=== PATIENT | female | born 1990 | race Caucasian/White ===

== ENCOUNTER 2021-01-31 10:59 | Outpatient (CLI) | payer OTHER, SELFPAY ==
--- NOTE | 2021-02-02 14:39 | WPDHOLTEREM ---
Holter/Event Monitor Holter/Event Monitor Date of procedure: 02/02/21 Holter/Event Procedure: 24 Hr Holter Monitor Diagnosis: Palpitations Indications: Palpitations Image/Tracing Quality: Acceptable Finding: Underlying rhythm is sinus with an average heart rate is 62 beats minute minimum 0 43 beats per minute occurring at 4:56 a.m. and maximum 124 beats per minute occurring at 10:48 p.m.. No atrial fibrillation or flutter is observed. Toprol causes are negative. No ventricular ectopy was noted. No supraventricular tachycardia or nonsustained ventricular tachycardia or ventricular tachycardia. Rare supraventricular ectopy totaling 12 isolated premature atrial contractions noted. RI interval and QRS duration within normal limits. There was no symptom diary returned conjunction with this study. Conclusion: Overall, unremarkable Holter monitor with underlying sinus rhythm and rare isolated premature atrial contractions. No symptom diary returned in conjunction with the study. No SVT, AFib/flutter, prolonged pauses or high-grade AV blocks.
== END 2021-01-31 11:00 | disposition home or self-care (01) ==
PROVIDERS: PCP Family Medicine; Visit Provider Family Medicine
DX: R00.2 Palpitations (principal)
CPT/HCPCS: 93225; 93226

== ENCOUNTER 2021-03-10 18:12 | Emergency (ER) | payer OTHER, SELFPAY ==
--- NOTE | ~2021-03-10 | CT_ITS ---
EXAMINATION: CT abdomen pelvis wo con DATE: 03/10/2021 20:22 INDICATION: Right flank pain, TECHNIQUE: Computed tomography (CT) of the abdomen and pelvis was performed without intravenous contr ast. The dose-length product was 278.88 mGy-cm. Automated exposure control and iterative reconstructi on technique were employed. COMPARISON: CT dated 01/27/2018. FINDINGS: Lung bases are unremarkable. Heart size normal. No significant pleural or pericardial effus ion. Status post cholecystectomy. The liver, spleen, pancreas, adrenal glands and kidneys are unremar kable. Nonobstructive bowel gas pattern. Bladder is decompressed. Uterus appears mildly enlarged. No rmal appendix. No renal/ureteral stones or hydronephrosis. No significant vascular abnormality. No lymphadenopathy. No evidence for hernia. IMPRESSION: 1. No acute abdominal abnormality. Reviewed, dictated and finalized at location A.
[2021-03-10 18:42] VITALS: BP 140/71; PULSE 73; RESP 16; TEMP 36.2; O2SAT 99
[2021-03-10 19:18] LABS: Hematocrit 39.4 % (37.0-47.0); Hemoglobin 13.7 g/dL (12.0-15.0); Mean Corpuscular HGB Conc 34.8 g/dl (32-36); Mean Corpuscular Hemoglobin 31.4 pg (26-34); Mean Corpuscular Volume 90.2 fl (80-100); Mean Platelet Volume 10.8 fl (7.4-10.4); Platelet Count Result 322 k/mm3 (150-375); Red Blood Count 4.37 M/mm3 (4.2-5.4); Red Cell Distribution Width 12.5 % (11.5-14.5); White Blood Count 25.2 K/mm3 (4.5-10.0)
[2021-03-10 19:29] LABS: Alanine Aminotransferase 17 U/L (4-35); Albumin Level 4.4 g/dL (3.5-5.1); Alkaline Phosphatase 62 U/L (38-126); Anion Gap 8 mmol/L (8-16); Aspartate Amino Transferase 23 U/L (14-36); Bilirubin,Total 0.7 mg/dL (0.2-1.3); Blood Urea Nitrogen 7 mg/dL (7-17); Calcium 9.4 mg/dL (8.4-10.2); Carbon Dioxide 26 mmol/L (22-30); Chloride 103 mmol/L (98-107); Estimated CRCL calculation 79 ml/min; Estimated Glomerular Filt Rate > 60; Glucose 88 mg/dL (65-110); Lipase 37 U/L (23-300); Potassium 4.5 mmol/L (3.4-5.0); Sodium 137 mmol/L (137-145)
[2021-03-10 19:45] LABS: Band Neutrophils Percent 2 % (0-6); Eosinophils Absolute Manual 0.25 K/mm3 (0.02-0.5); Eosinophils Percent Manual 1 % (0-4); Lymphocytes Absolute Manual 13.35 K/mm3 (1.1-4.5); Monocytes Percent Manual 2 % (3-9); Neutrophils Absolute Manual 11.08 K/mm3 (1.7-7.2); Neutrophils Percent Manual 42 % (46-73); Total Cells Counted 100
[2021-03-10 19:46] LABS: Platelet Estimate Adequate (Adequate)
[2021-03-10 19:47] LABS: Smudge Cells PRESENT
[2021-03-10 19:59] LABS: Add Urine Microscopic? YES; Appearance Urine Cloudy (Clear); Bilirubin Urine Negative (Negative); Blood Urine Negative (Negative); Color Urine Yellow (Yellow); Glucose Urine UA Negative (Negative); Ketones Urine Trace mg/dL (Negative); Leukocyte Esterase Ur Negative LEU/UL (Negative); Mucus Urine Rare /lpf; Nitrate Urine Negative (Negative); Protein Urine Negative (Negative); Specific Grav Ur 1.028 (1.001-1.035); Squamous Epithelial Cell Urine Moderate /hpf (Few); WBC Urine 0-3 /hpf
[2021-03-10] MEDS: KETOROLAC (*BKC) 60 MG/2 ML VIAL IM (20:44)
--- NOTE | 2021-03-10 21:27 | ED.BACK ---
HPI - Back Pain/Injury General Chief Complaint: Back Pain/Injury Stated Complaint: flank pain Time Seen by Provider: 03/10/21 19:56 History of Present Illness HPI Narrative: Patient is a 30-year-old female who presents ER with right-sided flank pain. Ongoing for 4 days. Worse with twisting and bending. No known trauma. No urinary frequency urgency or dysuria. No fevers or chills or sweats. Denies abdominal pain/nausea/vomiting. No alleviating factors. Patient reports history of CLL, white blood cell count has been as high as 80,000 but her new baseline is 20,000. Related Data Home Medications Medication Instructions Recorded Confirmed methylphenidate HCl 03/10/21 venlafaxine mg PO 03/10/21 venlafaxine mg PO 03/10/21 Allergies Allergy/AdvReac Type Severity Reaction Status Date / Time adhesive Allergy Unknown Hives Verified 03/10/21 19:58 Review of Systems Review of Systems: All systems reviewed & are unremarkable except as noted in HPI and below Constitutional: Constitutional: Denies chills, Denies fever(s) and Denies weakness ENT: Denies nasal congestion and Denies sore throat Cardiovascular: Cardiovascular: Denies chest pain and Denies radiating jaw, neck or arm pain Respiratory: Respiratory: Denies cough and Denies dyspnea Gastrointestinal: Gastrointestinal: Denies abdominal pain, Denies diarrhea, Denies nausea and Denies vomiting Genitourinary: Genitourinary: Denies abnormal vaginal bleeding, Denies hematuria, Denies nocturia, Denies dysuria and Reports flank pain Musculoskeletal: Musculoskeletal: Reports back pain and Denies muscle cramps Neurologic: Denies focal weakness and Denies numbness [facility] Past Medical History Medical History (Updated 03/10/21 @ 21:54 by Franklin Jc MD) CLL (chronic lymphocytic leukemia) Surgical History Surgical History (Updated 03/10/21 @ 21:55 by Franklin Jc MD) History of cholecystectomy Family History Family History (Updated 12/10/15 @ 23:19 by DOCTOR UNKNOWN) Father Family history of diabetes mellitus in first degree relative Mother Family history of diabetes mellitus in first degree relative Other Family history of malignant neoplasm Hypertension Social History Social History Smoking status: Heavy tobacco smoker Alcohol intake: current Exam Narrative: GENERAL: Well-appearing, well-nourished, and in no acute distress. HEAD: Normocephalic, atraumatic. CHEST: Clear to auscultation. No respiratory distress. HEART: Regular rate and rhythm. Normal peripheral pulses. ABDOMEN: Soft, nontender, nondistended. Right CVA tenderness. EXTREMITIES: Normal range of motion. No edema. SKIN: Warm, dry, no rash. NEURO: NAlert and oriented x3. PSYCH: Normal mood and affect. Course Course Emergency Course: Patient informed results. Toradol given for pain. No UTI/stone. Will treat outpatient for muscle strain. Reproducible with palpation and mechanical in nature. Vital Signs Vital signs: Vital Signs Temperature 97.2 F L 03/10/21 18:42 Pulse Rate 73 03/10/21 18:42 Respiratory Rate 16 03/10/21 18:42 Blood Pressure 140/71 03/10/21 18:42 Pulse Oximetry 99 03/10/21 18:42 Temperature 97.2 F L 03/10/21 18:42 Pulse Rate 73 03/10/21 18:42 Respiratory Rate 16 03/10/21 18:42 Blood Pressure 140/71 03/10/21 18:42 Pulse Oximetry 99 03/10/21 18:42 MDM - Back Pain/Injury Lab Data Result diagrams: 03/10/21 19:09 03/10/21 19:09 Labs: Lab Results 03/10/21 03/10/21 03/10/21 Range/Units 19:09 19:09 19:09 WBC 25.2 H (4.5-10.0) K/mm3 RBC 4.37 (4.2-5.4) M/mm3 Hgb 13.7 (12.0-15.0) g/dL Hct 39.4 (37.0-47.0) % MCV 90.2 (80-100) fl MCH 31.4 (26-34) pg MCHC 34.8 (32-36) g/dl RDW 12.5 (11.5-14.5) % Plt Count 322 (150-375) k/mm3 MPV 10.8 H (7.4-10.4) fl Immature Gran % (Auto) Not Reportable Neut % (Auto) Not Reportable
== END 2021-03-10 21:51 | disposition home or self-care (01) ==
PROVIDERS: Emergency Medicine; Emergency Provider Emergency Medicine; PCP Family Medicine
DX: S39.012A Strain of muscle, fascia and tendon of lower back, initial encounter (principal); C91.10 Chronic lymphocytic leukemia of B-cell type not having achieved remission; F17.200 Nicotine dependence, unspecified, uncomplicated; X58.XXXA Exposure to other specified factors, initial encounter
CPT/HCPCS: 36415; 74176; 80053; 81001; 81025; 83690; 85025; 96372; 99284; J1885

== ENCOUNTER 2024-06-09 14:13 | Emergency (ER) | payer OTHER, SELFPAY ==
--- NOTE | ~2024-06-09 | CT_ITS ---
EXAMINATION: CT abdomen pelvis w con DATE: 06/09/2024 18:46 INDICATION: Right flank pain. Abdominal pain. TECHNIQUE: Computed tomography (CT) of the abdomen and pelvis was performed with 100 mL Omnipaque 350 intravenous contrast. Automated exposure control and iterative reconstruction technique were employe d. The dose-length product was 334.77 mGy-cm. COMPARISON: CT abdomen and pelvis 03/10/2021 FINDINGS: The visualized portions of the lung bases demonstrate mild atelectasis. No pleural effusion . The heart size is normal. No pericardial effusion. The liver is normal. There are changes of cholec ystectomy. The spleen, pancreas, adrenal glands, and kidneys are normal. There are no dilated loops o f bowel. The appendix is normal. There are no pathologically enlarged lymph nodes. There is a 2.2 cm corpus luteum cyst in right ovary. There is a physiologic fluid in the pelvis. There are no pathologi quinten enlarged lymph nodes. There is mild lumbar spondylosis. IMPRESSION: 1. No specific etiology for the patient's symptoms. Reviewed, dictated and finalized at location A. AL TRAPPER
--- NOTE | ~2024-06-09 | XR_ITS ---
EXAMINATION: XR chest 2V DATE: 06/09/2024 15:02 INDICATION: Lower chest pain and upper abdominal pain TECHNIQUE: PA and lateral views of the chest were obtained. COMPARISON: CT dated 06/27/2017 FINDINGS: The lungs are clear with no focal airspace opacities, pulmonary edema, pleural effusion or pneumothor ax. The cardiomediastinal silhouette is normal. Cholecystectomy clips in right upper quadrant. IMPRESSION: 1. No acute cardiopulmonary disease. Reviewed, dictated and finalized at location B. S ORDER PROCESSOR
[2024-06-09 14:26] VITALS: BP 126/77; PULSE 65; RESP 20; TEMP 36.5; O2SAT 100
--- NOTE | 2024-06-09 14:34 | ED_ITS ---
HPI - Back Pain/Injury General Chief Complaint: Back Pain/Injury <Shirlene Bustamante APRN - Last Filed: 06/09/24 14:36> Stated Complaint: R FLANK PAIN X2WKS <Shirlene Bustamante APRN - Last Filed: 06/09/24 14:36> Time Seen by Provider: 06/09/24 14:25 <Shirlene Bustamante APRN - Last Filed: 06/09/24 14:36> Focused HPI: Patient is a 34 year female who presents to the ER with right flank pain for the past 2 days. She denies any urinary symptoms or visible blood in her urine. Patient also endorses upper abdominal pain and increased GERD lately. She has a history of CLL in reports she has noticed swollen lymph nodes on her posterior neck, but denies any sore throat, headache, neck stiffness. Patient reports her lymph nodes tend to swell when ?there is something going on with my body. She denies any recent fevers, chest pain, shortness of breath. Patient denies any other medical history related to this ER visit. GENERAL: Well-appearing, well-nourished, and in no acute distress. HEAD: Normocephalic, atraumatic. CHEST: Clear to auscultation. ?No respiratory distress. HEART: Regular rate and rhythm.? NEURO: ?Alert and oriented x3. Patient screened in triage and initial orders placed.? ?Additional care and disposition to be based upon?diagnostic testing and treatment. <Shirlene Bustamante APRN - Last Filed: 06/09/24 14:36> History of Present Illness HPI Narrative: Agree with the HPI as described above <Sergey Lipscomb MD - Last Filed: 06/09/24 20:33> Related Data Home Medications: Home Medications ?Medication ?Instructions ?Recorded ?Confirmed ?Last Taken ?Type methylphenidate HCl 5 mg tablet 03/10/21 Unknown History venlafaxine 150 mg mg PO 03/10/21 Unknown History capsule,extended release 24 hr venlafaxine 75 mg capsule,extended mg PO 03/10/21 Unknown History release 24 hr <Shirlene Bustamante APRN - Last Filed: 06/09/24 14:36> Allergies/Adverse Reactions: Allergies Allergy/AdvReac Type Severity Reaction Status Date / Time adhesive Allergy Unknown Hives Verified 06/09/24 14:29 <Shirlene Bustamante APRN - Last Filed: 06/09/24 14:36> Review of Systems 2 Review of Systems: As reviewed above in HPI <Sergey Lipscomb MD - Last Filed: 06/09/24 20:33> PMFSH Past Medical History Medical History: Medical History CLL (chronic lymphocytic leukemia) <Shirlene Bustamante APRN - Last Filed: 06/09/24 14:36> Surgical History Surgical History: Surgical History History of cholecystectomy <Shirlene Bustamante APRN - Last Filed: 06/09/24 14:36> Family History Family History: Family History Father Family history of diabetes mellitus in first degree relative Mother Family history of diabetes mellitus in first degree relative Other Family history of malignant neoplasm Hypertension <Shirlene Bustamante APRN - Last Filed: 06/09/24 14:36> Social History Social History: Social History Smoking status: Heavy tobacco smoker Alcohol intake: current <Shirlene Bustamante APRN - Last Filed: 06/09/24 14:36> Exam 2 Narrative: GENERAL: [Well-appearing, well-nourished, and in no acute distress.] HEAD: [Normocephalic, atraumatic.] EYES: [PERRLA and EOMI.] ENT: Nares clear, no rhinorrhea or epistaxis. Mucous membranes moist. NECK: Supple. CHEST: [Clear to auscultation. No respiratory distress.] HEART: [Regular rate and rhythm]. No murmur heard. [Normal peripheral pulses.] ABDOMEN: [Soft, nondistended], mild right-sided CVA tenderness, [No rigidity or guarding] EXTREMITIES: Normal range of motion. [No edema.] SKIN: Warm, dry, no rash. NEURO: [No focal deficits]. Alert and oriented [x3.] PSYCH: [Normal mood and affect.] <Sergey Lipscomb MD - Last Filed: 06/09/24 20:33> Course Vital Signs Vital signs: Vital Signs Temperature 36.5 C 06/09/24 14:26 Pulse Rate 65 06/09/24 14:26 Respiratory Rate 20 06/09/24 14:26 Blood Pressure 126/77 06/09/24 14:26 Pulse Oximetry 100 06/09/24 14:26 Oxygen Delivery Room Air 06/09/24 14:26 Temperature 36.5 C 06/09/24 14:26 Pulse Rate 65 06/09/24 17:33 Respiratory Rate 20 06/09/24 17:33 Blood Pressure 101/64 06/09/24 17:33 Pulse Oximetry 100 06/09/24 17:33 Oxygen Delivery Room Air 06/09/24 14:26 <Shirlene Bustamante APRN - Last Filed: 06/09/24 14:36> Vital Signs Temperature 36.5 C 06/09/24 14:26 Pulse Rate 65 06/09/24 14:26 Respiratory Rate 20 06/09/24 14:26 Blood Pressure 126/77 06/09/24 14:26 Pulse Oximetry 100 06/09/24 14:26 Oxygen Delivery Room Air 06/09/24 14:26 Temperature 36.5 C 06/09/24 14:26 Pulse Rate 65 06/09/24 17:33 Respiratory Rate 20 06/09/24 17:33 Blood Pressure 101/64 06/09/24 17:33 Pulse Oximetry 100 06/09/24 17:33 Oxygen Delivery Room Air 06/09/24 14:26 <Sergey Lipscomb MD - Last Filed: 06/09/24 20:33> MDM - Back Pain/Injury MDM Narrative Medical decision making narrative: 34-year-old female with a history of CLL currently in remission presenting to the emergency department chief complaint of right flank pain for last 2 weeks. Intermittent in nature. Feels dull and aching in sensation. Denies any urinary tract infection symptoms. Last menstrual period 1 week prior. Denies any chance of . No radiation of her symptoms, no radiculopathy symptoms, no weakness or footdrop. Ambulating unassisted. Denies any fever, chills, shortness of breath. She was otherwise in her normal state of health. Patient otherwise is very well-appearing, not any acute distress, normal vital signs, reassuring examination. Given her age and risk factors blood work, urinalysis and CT scan were obtained. She was treated with Toradol and fluids. Workup shows chronically elevated leukocytosis of 39.6 in line with her normal CLL, no other acute findings or concerns and CBC. Coag studies within normal limits, normal renal and electrolyte panel, normal liver function panel. Normal glucose. Urinalysis shows no signs of urinary tract infection and negative test. Chest x-ray shows no acute cardiopulmonary process. CT scan shows no acute intra-abdominal or pelvic process. Patient was re-evaluated and felt some improvement. We will send her home with a combination of Toradol and Robaxin for muscle strain pain and instructions for close follow-up and return precautions. Patient verbalized understanding was safe for discharge home at this time. <Sergey Lipscomb MD - Last Filed: 06/09/24 20:33> Differential Diagnosis Differential diagnosis: Likely lumbar radiculopathy, sciatica, strain of lumbar region, renal colic, pyelonephritis and other <Sergey Lipscomb MD - Last Filed: 06/09/24 20:33> Medical Records Attestation: I reviewed the patient's medical records. <Sergey Lipscomb MD - Last Filed: 06/09/24 20:33> Lab Data Attestation: I reviewed the patient's lab results. <Sergey Lipscomb MD - Last Filed: 06/09/24 20:33> Result diagrams: 06/09/24 15:37 06/09/24 15:37 <Shirlene Bustamante APRN - Last Filed: 06/09/24 14:36> Labs: Lab Results 06/09/24 06/09/24 06/09/24 Range/Units 15:37 17:42 19:57 WBC 39.6 H (4.5-10.0) K/mm3 RBC 4.27 (4.2-5.4) M/mm3 Hgb 13.6 (12.0-15.0) g/dL Hct 40.7 (37.0-47.0) % MCV 95.3 (80-100) fl MCH 31.9 (26-34) pg MCHC 33.4 (32-36) g/dl RDW 13.6 (11.5-14.5) % Plt Count 292 (150-375) k/mm3 MPV 11.1 H (7.4-10.4) fl Immature Gran % (Auto) Not Reportable Neut % (Auto) Not Reportable Lymph % (Auto) Not Reportable [place] % (Auto) Not Reportable Eos % (Auto) Not Reportable Baso % (Auto) Not Reportable Lymph # (Auto) Not Reportable [place] # (Auto) Not Reportable Eos # (Auto) Not Reportable Baso # (Auto) Not Reportable Abs Immat Gran (auto) Not Reportable Absolute Neuts (auto) Not Reportable Absolute Nucleated RBC Not Reportable Total Counted 100 Neutrophils % (Manual) 27 L (46-73) % Lymphocytes % (Manual) 69.0 H (18-44) % Monocytes % (Manual) 3 (3-9) % Eosinophils % (Manual) 1 (0-4) % Nucleated RBC % Not Reportable Abs Lymphs (Manual) 27.32 H (1.1-4.5) K/mm3 Abs Monocytes (Manual) 1.18 H (0.1-0.90) K/mm3 Absolute Eos (Manual) 0.39 (0.02-0.50) K/mm3 Platelet Estimate Adequate (Adequate) Schistocytes None seen PT 13.3 (11.1-14.7) Seconds INR 1.0 APTT 24.9 (22.3-36.8) Seconds Sodium 139 (137-145) mmol/L Potassium 4.1 (3.4-5.0) mmol/L Chloride 106 (98-107) mmol/L Carbon Dioxide 23 (22-30) mmol/L Anion Gap 10 (4-12) mmol/L BUN 6 L (7-17) mg/dL Creatinine 0.56 L (0.7-1.0) mg/dL Estim Creat Clear Calc 111 ml/min Estimated GFR > 60 (59 - ) Glucose 93 (65-110) mg/dL Calcium 9.1 (8.4-10.2) mg/dL Total Bilirubin 1.1 (0.2-1.3) mg/dL AST 26 (14-36) U/L ALT 17 (6-35) U/L Alkaline Phosphatase 45 (38-126) U/L Troponin I < 0.012 (0.000-0.034) ng/mL Total Protein 7.0 (6.3-8.2) g/dL Albumin 4.5 (3.5-5.1) g/dL Lipase 45 (23-300) U/L Urine Color Yellow (Yellow) Urine Appearance Clear (Clear) Urine pH 7.0 (5.0-9.0) Ur Specific [place] 1.007 (1.001-1.035) Urine Protein Negative (Negative) mg/dL Urine Glucose (UA) Negative (Negative) mg/dL Urine Ketones Negative (Negative) mg/dL Ur Blood (Man) Trace (Negative) Urine Nitrate Negative (Negative) Urine Bilirubin Negative (Negative) Urine Urobilinogen 0.2 (<2.0) mg/dL Leukocyte Esterase Rfl Trace H (Negative) MIGUEL/UL Urine RBC 3-5 H (0-2) /hpf Urine WBC 0-5 (0-3) /hpf Ur Squamous Epith Cells Few (Few) /hpf Urine Bacteria Rare /hpf Urine Casts 0-2 POC Urine HCG, Qual Negative (Negative) <Shirlene Bustamante, ASSISTANT PROFESSOR OF MARINE BIOLOGY - Last Filed: 06/09/24 14:36> Lab Results 06/09/24 06/09/24 06/09/24 Range/Units 15:37 17:42 19:57 WBC 39.6 H (4.5-10.0) K/mm3 RBC 4.27 (4.2-5.4) M/mm3 Hgb 13.6 (12.0-15.0) g/dL Hct 40.7 (37.0-47.0) % MCV 95.3 (80-100) fl MCH 31.9 (26-34) pg MCHC 33.4 (32-36) g/dl RDW 13.6 (11.5-14.5) % Plt Count 292 (150-375) k/mm3 MPV 11.1 H (7.4-10.4) fl Immature Gran % (Auto) Not Reportable Neut % (Auto) Not Reportable Lymph % (Auto) Not Reportable [place] % (Auto) Not Reportable Eos % (Auto) Not Reportable Baso % (Auto) Not Reportable Lymph # (Auto) Not Reportable [place] # (Auto) Not Reportable Eos # (Auto) Not Reportable Baso # (Auto) Not Reportable Abs Immat Gran (auto) Not Reportable Absolute Neuts (auto) Not Reportable Absolute Nucleated RBC Not Reportable Total Counted 100 Neutrophils % (Manual) 27 L (46-73) % Lymphocytes % (Manual) 69.0 H (18-44) % Monocytes % (Manual) 3 (3-9) % Eosinophils % (Manual) 1 (0-4) % Nucleated RBC % Not Reportable Abs Lymphs (Manual) 27.32 H (1.1-4.5) K/mm3 Abs Monocytes (Manual) 1.18 H (0.1-0.90) K/mm3 Absolute Eos (Manual) 0.39 (0.02-0.50) K/mm3 Platelet Estimate Adequate (Adequate) Schistocytes None seen PT 13.3 (11.1-14.7) Seconds INR 1.0 APTT 24.9 (22.3-36.8) Seconds Sodium 139 (137-145) mmol/L Potassium 4.1 (3.4-5.0) mmol/L Chloride 106 (98-107) mmol/L Carbon Dioxide 23 (22-30) mmol/L Anion Gap 10 (4-12) mmol/L BUN 6 L (7-17) mg/dL Creatinine 0.56 L (0.7-1.0) mg/dL Estim Creat Clear Calc 111 ml/min Estimated GFR > 60 (59 - ) Glucose 93 (65-110) mg/dL Calcium 9.1 (8.4-10.2) mg/dL Total Bilirubin 1.1 (0.2-1.3) mg/dL AST 26 (14-36) U/L ALT 17 (6-35) U/L Alkaline Phosphatase 45 (38-126) U/L Troponin I < 0.012 (0.000-0.034) ng/mL Total Protein 7.0 (6.3-8.2) g/dL Albumin 4.5 (3.5-5.1) g/dL Lipase 45 (23-300) U/L Urine Color Yellow (Yellow) Urine Appearance Clear (Clear) Urine pH 7.0 (5.0-9.0) Ur Specific [place] 1.007 (1.001-1.035) Urine Protein Negative (Negative) mg/dL Urine Glucose (UA) Negative (Negative) mg/dL Urine Ketones Negative (Negative) mg/dL Ur Blood (Man) Trace (Negative) Urine Nitrate Negative (Negative) Urine Bilirubin Negative (Negative) Urine Urobilinogen 0.2 (<2.0) mg/dL Leukocyte Esterase Rfl Trace H (Negative) MIGUEL/UL Urine RBC 3-5 H (0-2) /hpf Urine WBC 0-5 (0-3) /hpf Ur Squamous Epith Cells Few (Few) /hpf Urine Bacteria Rare /hpf Urine Casts 0-2 POC Urine HCG, Qual Negative (Negative) <Sergey Lipscomb MD - Last Filed: 06/09/24 20:33> Imaging Data Attestation: I personally reviewed and interpreted this imaging study as follows: < Sergey Lipscomb MD - Last Filed: 06/09/24 20:33> My impression: Impressions Chest X-Ray 06/09/24 15:03 IMPRESSION: 1. No acute cardiopulmonary disease. Abdomen/Pelvis CT 06/09/24 18:47 IMPRESSION: 1. No specific etiology for the patient's symptoms. <Sergey Lipscomb MD - Last Filed: 06/09/24 20:33> Discharge Plan Discharge Clinical Impression: Strain of lumbar region, Acute flank pain <Shirlene Bustamante APRN - Last Filed: 06/09/24 14:36> Patient Disposition: Home, Self-Care <Shirlene Bustamante APRN - Last Filed: 06/09/24 14:36> Condition: Stable <Shirlene Bustamante APRN - Last Filed: 06/09/24 14:36> Instructions: Antibiotic Form, Acute Low Back Pain (ED) <Shirlene Bustamante APRN - Last Filed: 06/09/24 14:36> Additional Instructions: Your CT scan was very reassuring, no evidence of urinary tract infection, your white count is chronically elevated from your CLL but no acute findings otherwise. We will send you home with some medications to try for relief of her symptoms. If you have any persistent or worsening symptoms or any new concerns please return to the emergency department at any time. <Shirlene Bustamante APRN - Last Filed: 06/09/24 14:36> Patient Language: Icelandic <Shirlene Bustamante APRN - Last Filed: 06/09/24 14:36> Prescriptions: New ketorolac 10 mg tablet 10 mg PO Q8H PRN (Reason: pain) 5 Days Qty: 20 0RF Rx Instructions: maximum total duration of 5 days from all oral, intranasal, or parenteral formulations methocarbamol 750 mg tablet 750 mg PO TID PRN (Reason: pain) Qty: 20 0RF No Action venlafaxine 75 mg capsule,extended release 24hr PO methylphenidate HCl 5 mg tablet venlafaxine 150 mg capsule,extended release 24hr PO cyclobenzaprine 10 mg tablet 10 mg PO TID PRN (Reason: muscle spasm) Qty: 20 0RF naproxen 375 mg tablet 375 mg PO BID Qty: 14 0RF <Shirlene Bustamante APRN - Last Filed: 06/09/24 14:36> Follow-up/Referrals: UNKNOWN,DOCTOR [Primary Care Provider] - <Shirlene Bustamante APRN - Last Filed: 06/09/24 14:36> Time of Disposition: 20:29 <Shirlene Bustamante APRN - Last Filed: 06/09/24 14:36> 20:29 <Sergey Lipscomb MD - Last Filed: 06/09/24 20:33>
--- OUTSIDE RECORDS SUMMARY | 2024-06-09 14:57 | XMS_ITS | Continuity of Care Document ---
Author Organization [facility] Address [address] [place] [address] Phone Care Team Providers Care Patternmaker Pressure Cast Name Role Phone Unavailable Unavailable Unavailable Advance Directives Directive Yes / No Effective Date File Name No Information Encounters Encounter Description Practice Location Reason(s) For Visit Diagnoses Date Provider Providers Copied on Encounter [facility], [address] [facility], [place], [place], [id number], [place] tel:[phone] [facility] No Information No Information Referring Provider: REFERRAL SELF. Family History Family Member Type Diagnosis Age At Onset No Information Payers Payer name Insurance type Covered democrat ID Authoriza tiautumn(s) [facility] IN[employer]MN[employer] [id number] Social History Type Description Quantity Date Captured Comments Sex Female Smoking Status No Information Chief Complaint And Reason For Visit No Information History Of Present Illness Encounter Date Complaint History Of Prese nt Illness No Information Instructions Date Instruction Additional Infor mation No Information Assessments Type Assessment Date No Information
--- OUTSIDE RECORDS SUMMARY | 2024-06-09 14:57 | XMS_ITS | Clinical Summary ---
Author Organization [facility] Address [address] [place] [id number] Care Team Providers Care Clinical Nursing Instructor Name Role Phone Kylah Harry MD Primary Care Provider + Daniel Solis MD Unavailable [phone] Antwon Card DO Unavailable [phone] Allergies Active Allergy Reactions Criticality Noted Date Comments Adhesive Rash Medium 05/19/2009 Medications methylphenidate HCl (RITALIN) 5 mg tablet 1 Active valACYclovir (VALTREX) 500 mg tablet 1 Active acetaminophen (TYLENOL) 325 mg tablet Take 650 mg by mouth every 6 (six) hours as needed for pain Active omeprazole (PriLOSEC) 10 mg capsule Take 10 mg by mouth daily Active triamcinolone (KENALOG) 0.1 % ointment Apply topically 2 (two) times a day Apply to rash on arm 30 g 3 Active Additional Information Patient not taking.Reported on 08/03/2023 desvenlafaxine ER 50 mg 24 hr tablet Take 1 tablet (50 mg total) by mouth daily Active Active Problems Problem Noted Date Diagnosed Date Chronic lymphoid leukemia, w ithout mention of having achieved remission(204.10) (CMS/HCC) 10/26/2017 Cancer Staging:Clinical stage from 11/26/2017:Modified Chavez Stage I(Modified Chavez risk: Intermediate, Lymphocytosis: Present, Adenopathy: Present, Organomegaly: Absent, Anemia: Absent, Thrombocytopenia: Absent) - Signed by Antwon Card DO on 11/26/2017 Immunizations Name Administration Dates Next Due Influenza, Quadrivalent, Raquel l Culture-based MDCK, Preservative Free, Antibiotic Free, Intramuscular 02/16/2021 [facility] SARS-CoV-2 Vaccination 07/18/2020 Surgical History Surgery Date Site/Laterality Comments COLONOSCOPY Medical History Medical History Date Comments Anxiety and depression Seasonal allergic rhinitis Family History Medical History Relation Name Comments No Known Problems Father No Known Problems Mother Relation Name Status Comments Father Alive Mother Alive Social History Tobacco Use Types Packs/Day Years Used Date Smoking Tobacco: Former Cigarettes 1 15 0 07/2004 - 07/2019 Smokeless Tobacco: Never Alcohol Use Standard Drinks/Week Comments No 0 (1 standard drink = 0.6 oz pur e alcohol) AUDIT-C Answer Date Recorded Q1: How often do you have a drink containing alc ohol? Never 07/11/2020 Average Number of Drinks Not on file 021 Frequency of Binge Drinking Not on file 06/15 Personal Safety Answer Date Recorded Getting School Help Needed Not on file 06/19 Comments No Sex and Gender Information Value Date Recorded Sex Assigned at Not on file Legal Sex Female 10:13 AM [employer] Gender Identity Female 07/05/2020 1:07 PM [employer] Sexual Orientation Not on file Occupation Industry Job Start Date Job End Date Unemployed Not on file Not on file Not on file Obstetrics History Last Filed Vital Signs Vital Sign Reading Time Taken Comments Blood Pressure 112/76 02/08/2024 10:23 AM CDT Pulse 63 02/08/2024 10:23 AM CDT Temperature 36.8 ??C (98.2 ??F) 02/08/2024 10:23 AM C DT Respiratory Rate 16 02/08/2024 10:23 AM CDT Oxygen Saturation 100% 02/08/2024 10:23 AM CDT Inhaled Oxygen Concentration - - Weight 68.1 kg (150 lb 3.2 oz) 02/08/2024 10:23 AM CDT Height 160 cm (5' 3 ) 02/22/2023 11:45 AM CDT Body Mass Index 26.61 02/22/2023 11:45 AM CDT Plan of Treatment Health Maintenance Due Date Last Done Comments Cervical Cancer Screening 1989 Depression Screening 1989 Hepatitis C Screening 1989 Pneumococcal vaccine <65 (1 of 2 - PCV) 1995 DTaP/Tdap/Td Vaccine (1 - Tdap) 2000 Varicella Vaccines (1 of 2 - 13+ 2-dose series) 2002 Hepatitis B Screening 2007 Regular Well Visit/Exam 18-64 2007 Zoster Vaccine (1 of 2) 2008 Covid-19 Vaccine (2 - Jansse n risk series) 08/15/2020 07/18/2020 Influenza Vaccine (#1) 2024 , 02/16/2021 HPV Vaccines Aged Out No longer eligi ble based on patient's age to complete this topic Insurance [facility] [id number] [place] [address] Care Teams Clinical Nursing Instructor Relationship Specialty Start Date End Date Kylah Harry MD PCP - General Family Medicine 10/29/17 Daniel Solis MD Referring Physician Internal Medicine 10/29/17 Antwon Card DO [address] [place] [phone] Medical Oncologist/[employer] Hematology and Oncology 02/26/18
--- OUTSIDE RECORDS SUMMARY | 2024-06-09 14:57 | XMS_ITS | Data Portability ---
Author Organization [place] - [facility] [employer], Main Office Address [address] [place] [address] Assessment Encounter Date Assessment Date Assessment LastModified by Organization Details LastModified Time 05/24/2023 05/24/2023 Dx F32.9 Trial of desvenlafaxine ER 50 mg daily [email or web address] Not available 06/14/2023 15:39:21 Plan of Treatment Reminders Order Date Submit Date Provider Last Modified By Organization Details Last Modified Time Details Appointments Physical/ Annual Wellness 30 2024 10:00A Jeff Martinez NP Not available Not available Not available Lab BMP, serum or plasma 2022 023 [email or web address] [facility] (Lab), [address] [place], [address], 11/21/2022 12:48:14 methylphe nidate, urine 2023 024 [facility], [address], [place], [address], 11/27/2023 23:03:19 Referral None recorded. Procedures None recorded. Surgeries None recorded. Imaging None recorded. Medication Orders venlafaxi ne ER 150 mg capsule,e xtended release 24 hr 2022 023 [email or web address] [id number], [address] , [place], [place], [id number], 02/28/2023 13:54:12 methylphe nidate 5 mg tablet 2022 023 [email or web address] [facility][id number], [address], [place], [place], [id number], 03/06/2024 12:00:41 desvenlaf axine succinate ER 50 mg tablet,ex tended release 24 hr 2023 [facility] #[id number], [address], [place], [place], [id number], 05/24/2023 12:04:09 methylphe nidate ER 10 mg tablet,ex tended release 2023 024 [facility] #[id number], [address], [place], [place], [id number], 05/24/2023 12:05:52 methylphe nidate ER 10 mg tablet,ex tended release 2023 [facility] #[id number], [address], [place], [place], [id number], 03/06/2024 12:09:32 Patient TargetsNo targets recorded. Patient InstructionsNo instructions recorded. Reason for Referral None Reported. Results Created Date Observation Date Name Description Value Unit Range Abnormal Flag Note LastModifiedBy Organization Detail LastModifiedTime 11/27/19 24 11/27/2023 DRUG MONIT OR,ME THYLP HENID METAB , QN, URINE ritalinic acid >75868 NG/mL <100 high Not Available [address] [address] [place], [address], 11/27/2023 23:03:18 11/27/19 24 11/27/2023 DRUG MONIT OR,ME THYLP HENID METAB , QN, URINE ritalinic acid comments See Rital inic Acid Notes , LDT Notes Not Available [facility] [address] [place], [address], 11/27/2023 23:03:18 11/27/19 24 11/27/2023 DRUG MONIT ORING TEMPL ATE notes and comments This drug testi ng is for medic al treat ment only. Mary sis was perfo rmed as non-f orens ic testi ng and these resul ts shoul d be used only by healt hcare provi ders to rende r diagn osis or treat ment, or to monit or progr ess of medic al condi tions . Rital inic Acid Notes : Rital inic Acid detec elida is consi stent with the use of the drug Methy lphen idate . LDT Notes : Confi rmati on tests were devel oped and their mary tical perfo rmanc e sadie cteri stics have been deter mined by [facility]. It has not been clear ed or appro edilia by the FDA. This assay has been valid ated pursu ant to the CLIA regul ation s and is used for clini kimberlee purpo ses. Healt hcare Provi ders needi ng Inter preta tion donna tance , pleas e conta ct us at 1.877 .40.R XTOX (1.87 7.407 .9869 ) M-F, 8am to 10pm EST Not Available [facility] [address] [place], [address], 11/27/2023 23:03:19 11/27/19 24 11/27/2023 DRUG MONIT ORING TEMPL ATE patient historical report NO COLLE CTION DATE RECEI EDILIA. WE HAVE USED THE DATE THE SPECI MEN WAS RECEI EDILIA BY THIS LABOR ATORY THE COLLE CTION DATE. IF THIS IS INCOR RECT, PLEAS E CONTA CT CLIEN T SERVI BARRETT. PHONE NUMBE R: [phone] Not Available [facility] [address] [place], [address], 11/27/2023 23:03:19 08/12/19 22 08/11/2021 urina lysis , dipst ick Leukocytes (reference range: negative lion/? ? ?l) Negati ve Not Available [facility] [address], [address], [place], [address], 08/11/2021 11:43:09 08/12/19 22 08/11/2021 urina lysis , dipst ick Nitrite (reference rage: negative mg/dl) negati ve Not Available [address], [address], 08/11/2021 11:43:09 08/12/19 22 08/11/2021 urina lysis , dipst ick Urobilinogen (reference range: 0.2-1 mg/dl) 0.2 Not Available [address], [address], 08/11/2021 11:43:09 08/12/19 22 08/11/2021 urina lysis , dipst ick Protein (reference range: negative mg/dl) Negati ve Not Available [address], [address], 08/11/2021 11:43:09 08/12/19 22 08/11/2021 urina lysis , dipst ick pH (reference range: 5-7) 6.0 Not Available [address], [address], 08/11/2021 11:43:09 08/12/19 22 08/11/2021 urina lysis , dipst ick Blood (reference range: negative Jl/? ? ?l) Modera te Not Available [address], [address], 08/11/2021 11:43:09 08/12/19 22 08/11/2021 urina lysis , dipst ick Specific [place] (reference range: 1.005-1.030) 1.025 Not Available [address], [address], [address], 08/11/2021 11:43:09 08/12/19 22 08/11/2021 urina lysis , dipst ick Ketone (reference range: negative mg/dl) Negati ve Not Available [address], [address], 08/11/2021 11:43:09 08/12/19 22 08/11/2021 urina lysis , dipst ick Bilirubin (reference range: negative mg/dl) Negati ve Not Available [address], [address], 08/11/2021 11:43:09 08/12/19 22 08/11/2021 urina lysis , dipst ick Glucose (reference range: negative mg/dl) Negati ve Not Available [address], [address], 08/11/2021 11:43:09 08/12/19 22 08/11/2021 urina lysis , dipst ick Appearance Clear Not Available [address], [address], 08/11/2021 11:43:09 08/12/19 22 08/11/2021 urina lysis , dipst ick Color Yellow Not Available [address], [address], 08/11/2021 11:43:09 09/09/19 22 09/08/2021 urina lysis , dipst ick Leukocytes (reference range: negative lion/? ? ?l) Negati ve Not Available [address], [address], 09/08/2021 09:44:22 09/09/19 22 09/08/2021 urina lysis , dipst ick Nitrite (reference rage: negative mg/dl) negati ve Not Available [address], [address], 09/08/2021 09:44:22 09/09/19 22 09/08/2021 urina lysis , dipst ick Urobilinogen (reference range: 0.2-1 mg/dl) 0.2 Not Available [address], [address], 09/08/2021 09:44:22 09/09/19 22 09/08/2021 urina lysis , dipst ick Protein (reference range: negative mg/dl) Negati ve Not Available [address], [address], 09/08/2021 09:44:22 09/09/19 22 09/08/2021 urina lysis , dipst ick pH (reference range: 5-7) 5.5 Not Available [address], [address], 09/08/2021 09:44:22 09/09/19 22 09/08/2021 urina lysis , dipst ick Blood (reference range: negative Jl/? ? ?l) Small Not Available [facility], [address], 09/08/2021 09:44:22 09/09/19 22 09/08/2021 urina lysis , dipst ick Specific [place] (reference range: 1.005-1.030) 1.030 Not Available [address], [address], 09/08/2021 09:44:22 09/09/19 22 09/08/2021 urina lysis , dipst ick Ketone (reference range: negative mg/dl) Negati ve Not Available [address], [address], 09/08/2021 09:44:22 09/09/19 22 09/08/2021 urina lysis , dipst ick Bilirubin (reference range: negative mg/dl) Negati ve Not Available [address], [address], 09/08/2021 09:44:22 09/09/19 22 09/08/2021 urina lysis , dipst ick Glucose (reference range: negative mg/dl) Negati ve Not Available [address], [address], 09/08/2021 09:44:22 09/09/19 22 09/08/2021 urina lysis , dipst ick Appearance Clear Not Available [address], [address], 09/08/2021 09:44:22 09/09/19 22 09/08/2021 urina lysis , dipst ick Color Yellow Not Available [facility] [place] [address] [place] [address], [address], [place], [address], 09/08/2021 09:44:22 11/22/19 23 11/21/2022 BASIC METAB OLIC PANEL sodium 138 mmol/ L 137-14 5 Not Available [facility] (Lab) [address] [place], [address], 11/21/2022 20:42:26 11/22/19 23 11/21/2022 BASIC METAB OLIC PANEL potassium 4.6 mmol/ L 3.5-5. 1 Not Available [facility] (Lab) [address] [place], [address], 11/21/2022 20:42:26 11/22/19 23 11/21/2022 BASIC METAB OLIC PANEL chloride 105 mmol/ L 98-107 Not Available [facility] (Lab) [address] [place], [address], 11/21/2022 20:42:26 11/22/19 23 11/21/2022 BASIC METAB OLIC PANEL carbon dioxide 24 mmol/ L 22-30 Not Available [facility] (Lab) [address] [place], [address], 11/21/2022 20:42:26 11/22/19 23 11/21/2022 BASIC METAB OLIC PANEL anion gap 13.6 mmol/ L 14-22 low Not Available [facility] (Lab) [address] [place], [address], 11/21/2022 20:42:26 11/22/19 23 11/21/2022 BASIC METAB OLIC PANEL glucose 97 mg/dL 70-99 Not Available [facility] (Lab) [address] [place], [address], 11/21/2022 20:42:26 11/22/19 23 11/21/2022 BASIC METAB OLIC PANEL BUN 7 mg/dL 8-19 low Not Available [facility] (Lab) [address] [place], [address], 11/21/2022 20:42:26 11/22/19 23 11/21/2022 BASIC METAB OLIC PANEL creatinine 0.68 mg/dL 0.66-1 .25 Not Available [facility] (Lab) [address] [place], [address], 11/21/2022 20:42:26 11/22/19 23 11/21/2022 BASIC METAB OLIC PANEL GFR >60 Refer ence Range : [place] [facility] GFR Healt hy Adult : >60 mL/mi n/1.7 3 m2 Chron ic Kidne y Disea se: 15-60 mL/mi n/1.7 3 m2 Kidne y Failu re: <15/m L/min /1.73 m2 www.n iddk. nih.g ov The MDRD study equat ion has not been valid ated in child willy <18 years of age; pregn ant women ; the elder ly >85 years of age; or in some racia l or ethni c subgr oups, such as or nics. Outsi de the valid ated annamaria eters , estim ated GFR is less accur ate, requi ring clini kimberlee judgm ent on a case- by-ca se basis . Clini kimberlee inter preta tion for other races and ages must be made by the clini katharine. The MDRD study equat ion has not been valid ated for the evalu ation of serum creat inine relat ed to nutri cheikh l statu s or medic ation usage . For perso ns <18 years of age, a pedia tric GFR calcu lator is avail able on the F websi te: https ://sonu orr.juan bruno.o sunni/pr ofess ional s/kdo qi/gf r_cal culat or Not Available [facility] (Lab) [address] [place], [address], 11/21/2022 20:42:26 11/22/19 23 11/21/2022 BASIC METAB OLIC PANEL calcium 9.3 mg/dL 8.4-10 .2 Not Available [facility] (Lab) [address] [place], [address], 11/21/2022 20:42:26 09/02/19 22 09/01/2021 US, renal No observ ation record ed. [id number] [facility] On Lab Orders [address] [place], [address], 07/12/2022 09:23:49 09/02/19 22 09/01/2021 imagi ng/di agnos tic resul t No observ ation record ed. [id number] [facility] Lab Orders [address] [place], [address], 07/12/2022 09:23:49 Result Notes None recorded. Problems Name Problem SNOMED Code Status Onset Date Resolution Date Notes Provider Name and Address Organization Details Recorded Time Leukocytosis 908795652 Active Not Available [facility] 3 09:17:49 White blood cell count outside reference range 731072686 Active Not Available [facility] 3 09:17:49 Gallstone 436686834 Active Not Available [facility] 3 09:17:49 Genital warts 289170669 Active Not Available [facility] 3 09:17:49 Anemia 482399617 Active Not Available [facility] 3 09:17:49 Malaise and fatigue 886442399 Active Not Available [facility] 3 09:17:50 Knee pain Active Not Available [facility] 3 09:17:50 Bronchitis 15913062 Active Not Available [facility] 3 09:17:50 Genital herpes simplex 58064772 Active Not Available [facility] 3 09:17:50 Malignant tumor of cervix 548857120 Active stage 1 Not Available [facility] 3 09:17:50 Blood leukocyte number above reference range 263636543 Active Not Available [facility] 3 09:17:50 Viral syndrome 853405030 Active Not Available 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 Procedures Surgical History Date Name Laterality Status Provider Name and Address Organization Details Recorded Time Ankle Surgery completed Not Available [facility] 07/12/2022 09:13:39 cholecystectomy completed Not Available [facility] 07/12/2022 09:13:39 Imaging Results Imaging Date Name Status LastModified by Organiz ation Details LastModified Time 09/01/2021 US, renal completed [id number] [facility] Orders [address] [place], [address], 07/12/2022 09:23:49 09/01/2021 imaging/deric gnostic result completed [id number] [facility] Orders [address] [place], [address], 07/12/2022 09:23:49 Procedure Notes None recorded. Medical Equipment None Reported. Allergies No known drug allergies Medications Name Sig Start Date Stop Date Status Note LastModified by Organization Details LastModified Time cyclobenzap rine 10 mg tablet 08/11 completed Not Available Not Available Not Available amoxicillin 500 mg capsule TK 4 CS 1 HOUR PRIOR TO DENTAL APPOINTME NT. 08/15 completed Not Available Not Available Not Available prednisone 10 mg tablet 06/07 completed Not Available Not Available Not Available venlafaxine ER 75 mg capsule,ext ended release 24 hr TAKE ONE CAPSULE BY MOUTH EVERY DAY WITH 150MG CAPSULE 07/12 completed Not Available Not Available Not Available doxycycline hyclate 100 mg capsule Take 1 capsule twice a day by oral route for 10 days. active Not Available Not Available No t Available paroxetine 10 mg tablet TK 1 T PO QD active Not Available Not Available No t Available naproxen 375 mg tablet 08/11 completed Not Available Not Available Not Available clindamycin HCl 300 mg capsule TAKE 1 CAPSULE BY MOUTH 4 TIMES DAILY active Not Available Not Available No t Available azithromyci n 250 mg tablet 2 tabs po qd x 1 day then 1 tab po qd x 4 days 07/15 completed Not Available Not Available Not Available nicotine (polacrilex ) 2 mg gum 07/15 completed Not Available Not Available Not Available benzonatate 200 mg capsule Take 1 capsule 3 times a day by oral route as needed. 08/11 completed Not Available Not Available Not Available clarithromy dharmesh 500 mg tablet 08/15 completed Not Available Not Available Not Available hydrocodone 5 mg-acetamin ophen 325 mg tablet TK 1 T PO Q 4-6 H PRN 07/15 completed Not Available Not Available Not Available bacitracin 500 unit/gram eye ointment 10/12 completed Not Available Not Available Not Available metronidazo le 0.75 % (37.5 mg/5 gram) vaginal gel active Not Available Not Available Not Available famotidine 40 mg tablet 08/15 completed Not Available Not Available Not Available methylpheni date 5 mg tablet 1 po qAM 03/06 completed Not Available Not Available Not Available prednisone 20 mg tablet Take 2 tablets every day by oral route for 5 days. active Not Available Not Available No t Available venlafaxine ER 150 mg capsule,ext ended release 24 hr Take 1 capsule every day by oral route. 02/28 completed Not Available Not Available Not Available methylpheni date ER 10 mg tablet,exte nded release Take 1 tablet every day by oral route. active Not Available Not Available No t Available acyclovir 400 mg tablet 06/07 completed Not Available Not Available Not Available valacyclovi r 500 mg tablet active Not Available Not Available Not Available ciprofloxac in 500 mg tablet 07/15 completed Not Available Not Available Not Available sulfamethox azole 800 mg-trimetho prim 160 mg tablet Take 1 tablet every 12 hours by oral route for 3 days. active Not Available Not Available No t Available hydrocodone 10 mg-acetamin ophen 325 mg tablet Take 1 tablet every 4 hours by oral route as needed. active Not Available Not Available No t Available omeprazole 40 mg capsule,del ayed release 07/15 completed Not Available Not Available Not Available tramadol 50 mg tablet 1 po q6 hours prn pain 07/15 completed Not Available Not Available Not Available amoxicillin 500 mg tablet 05/24 completed Not Available Not Available Not Available ketorolac 10 mg tablet TK 1 T PO Q 6 H UTD FOR 5 DAYS. 10/12 completed Not Available Not Available Not Available oxycodone-a cetaminophe n 5 mg-325 mg tablet TK 1 T PO Q 4 TO 6 H PRN P 08/15 completed Not Available Not Available Not Available alprazolam 0.5 mg tablet Take 1 tablet every day by oral route as needed. active Not Available Not Available No t Available Microgestin FE 06/02 (28) 1 mg-20 mcg (21)/75 mg (7) tablet TK ONE T PO D 10/12 completed Not Available Not Available Not Available oxycodone-a cetaminophe n 10 mg-325 mg tablet 07/15 completed Not Available Not Available Not Available dicyclomine 20 mg tablet 1 po q6 hours prn abd pain 07/15 completed Not Available Not Available Not Available ciprofloxac in 0.3 % eye drops 10/12 completed Not Available Not Available Not Available naproxen sodium 550 mg tablet TK 1 T PO Q 12 H FOR 10 DAYS 10/12 completed Not Available Not Available Not Available ranitidine 150 mg tablet 1 po bid prn indigesti on active Not Available Not Available No t Available prednisone 50 mg tablet TK 1 T PO QD TAT 10/12 completed Not Available Not Available Not Available promethazin e 25 mg/mL injection solution 1 ml IM x 1 10/[address] [facility]#0 [phone] 1 Not Available Not Available Not Available promethazin e 25 mg tablet 1 po q6 hours prn nausea active Not Available Not Available No t Available gabapentin 300 mg capsule Take 1 capsule twice a day by oral route. active Not Available Not Available No t Available omeprazole 20 mg capsule,del ayed release 08/15 completed Not Available Not Available Not Available Banophen 25 mg capsule 07/15 completed Not Available Not Available Not Available diclofenac sodium 75 mg tablet,gracy yed release Take 1 tablet twice a day by oral route. 07/15 completed Not Available Not Available Not Available allopurinol 300 mg tablet 08/11 completed Not Available Not Available Not Available ergocalcife rol (vitamin D2) 1,250 mcg (50,000 unit) capsule 07/15 completed Not Available Not Available Not Available Cheratussin AC 10 mg-100 mg/5 mL oral liquid Take 10 mL every 4 hours by oral route. 10/12 completed Not Available Not Available Not Available ibuprofen 600 mg tablet TK 1 T PO Q 6 H PRN 07/15 completed Not Available Not Available Not Available cefuroxime axetil 500 mg tablet 07/15 completed Not Available Not Available Not Available methylpredn isolone 4 mg tablets in a dose pack FPD 07/15 completed Not Available Not Available Not Available albuterol sulfate HFA 90 mcg/actuati on aerosol inhaler Inhale 2 puffs every 4 hours by inhalatio n route. 10/12 completed Not Available Not Available Not Available ondansetron 4 mg disintegrat ing tablet DIS ONE T PO Q 6 H PRF NAUSEA 10/12 completed Not Available Not Available Not Available fluticasone propionate 50 mcg/actuati on nasal spray,suspe nsion [place] 1 spray every day by intranasa l route for 30 days. active Not Available Not Available No t Available dicyclomine 10 mg capsule 08/15 completed Not Available Not Available Not Available naproxen 500 mg tablet 08/15 completed Not Available Not Available Not Available amoxicillin 875 mg-potassiu m clavulanate 125 mg tablet TK 1 T PO Q 12 H FOR 7 DAYS 07/15 completed Not Available Not Available Not Available cyclobenzap rine 5 mg tablet TK 1 T PO TID 10/12 completed Not Available Not Available Not Available bupropion HCl XL 150 mg 24 hr tablet, extended release TK ONE T PO D 10/12 completed Not Available Not Available Not Available nitrofurant oin monohydrate /macrocryst als 100 mg capsule Take 1 capsule every 12 hours by oral route for 7 days. active Not Available Not Available No t Available Loestrin 06/02 () 10/12 completed Not Available Not Available Not Available desvenlafax ine succinate ER 50 mg tablet,exte nded release 24 hr Take 1 tablet every day by oral route. active Not Available Not Available No t Available GaviLyte-G 236 gram-22.74 gram-6.74 gram-5.86 gram oral solution MIX AND DRINK UTD 08/15 completed Not Available Not Available Not Available 28 mg iron-800 mcg tablet 07/15 completed Not Available Not Available Not Available Imbruvica 420 mg tablet 07/12 completed Not Available Not Available Not Available Vitals Date Recorded Body mass index (BMI) Body height Body temperature Body weight Provider Name and Address Organization Details Last Updated DateTime 09/08/2021 25.7 kg/m2 160.02 cm 98.4 [degF] 68165.89 g Not Available [facility] 07/12/2022 09:13:57 Date Recorded Body weight Body temperature Heart rate Oxygen saturation Oxygen saturation in Arterial blood by Pulse oximetry Systolic blood pressure Diastolic blood pressure Provider Name and Address Organization Details Last Updated DateTime 3 58561.4 1 g 98.2 [degF] 85 /min 98 % 98 % 116 mm[Hg] 82 mm[Hg] Zay Bush RN [facility] [employer] [facility] 3 12:12:37 Date Recorded Body weight Body temperature Heart rate Oxygen saturation Oxygen saturation in Arterial blood by Pulse oximetry Systolic blood pressure Diastolic blood pressure Provider Name and Address Organization Details Last Updated DateTime 4 92290.4 1 g 98 [degF] 72 /min 96 % 96 % 110 mm[Hg] 70 mm[Hg] Zay Bush RN [facility] [employer] [facility] 4 11:55:58 Date Recorded Body weight Body mass index (BMI) Body height Body temperature Heart rate Oxygen saturation Oxygen saturation in Arterial blood by Pulse oximetry Systolic blood pressure Diastolic blood pressure Provider Name and Address Organization Details Last Updated DateTime 4 12717.4 5 g 27.6 kg/m2 157.48 cm 100.1 [degF] 87 /min 98 % 98 % 116 mm[Hg] 72 mm[Hg] BLAS Garcia [facility] [employer] 4 16:38:16 Date Recorded Body height Body mass index (BMI) Body weight Body temperature Heart rate Oxygen saturation Oxygen saturation in Arterial blood by Pulse oximetry Systolic blood pressure Diastolic blood pressure Provider Name and Address Organization Details Last Updated DateTime 4 157.48 cm 26.7 kg/m2 51966.4 9 g 99.1 [degF] 56 /min 99 % 99 % 118 mm[Hg] 74 mm[Hg] BLAS Garcia - [facility] [employer] 4 11:57:31 Social History Question Answer Notes LastModified by Organizat ion Details LastModified Time Tobacco Smoking Status Former Smoker 2019 Not Available [facility] 07/12/2022 09:12:58 What Is Your Level Of Alcohol Consumption? Occasional [id number] Information not available 07/12/2022 If You Are , What Was Your Level Of Alcohol Consumption Prior To ? None [id number] Information not available 07/12/2022 Do You Wear A Helmet When Biking? Yes [id number] Information not available 07/12/2022 What Is Your Level Of Caffeine Consumption? Occasional [id number] Information not available 07/12/2022 What Type Of Diet Are You Following? REGULAR [id number] Information not available 07/12/2022 Have There Been Any Changes To Your Family Or Social Situation? No [id number] Information not available 07/12/2022 When Did You Quit Smoking? 1-5yearssincel astcigarette [id number].[id number] Information not available 07/12/2022 Are There Any Guns Present In Your Home? No MIGRATION.[id number] 3231 Information not available 07/12/2022 Do You Use Insect Repellent Routinely? No MIGRATION.081852 8471 Information not available 07/12/2022 What Was The Date Of Your Most Recent Tobacco Screening? 09/08/2021 MIGRATION.149809 5759 Information not available 07/12/2022 Have You Ever Been Counseled For Unhealthy Alcohol Use? No MIGRATION.716443 4232 Information not available 07/12/2022 What Is Your Relationship Status? Single MIGRATION.798329 4903 Information not available 07/12/2022 Do You Use Your Seat Belt Or Car Seat Routinely? Yes MIGRATION.970210 3278 Information not available 07/12/2022 Do You Have Smoke And Carbon Monoxide Detectors In Your Home? Yes MIGRATION.520301 6296 Information not available 07/12/2022 Are You Passively Exposed To Smoke? No MIGRATION.257761 9580 Information not available 07/12/2022 Are There Any Smokers In Your House? No MIGRATION.410516 4512 Information not available 07/12/2022 Do You Participate In Social Media? No MIGRATION.654249 0315 Information not available 07/12/2022 Do You Feel Stressed (tense, Restless, Nervous, Or Anxious, Or Unable To Sleep At Night)? [id number] MIGRATION.245530 9931 Information not available 07/12/2022 Do You Use Any Illicit Or Recreational Drugs? No MIGRATION.383242 1268 Information not available 07/12/2022 Do You Use Sunscreen Routinely? No MIGRATION.642932 1306 Information not available 07/12/2022 Has Tobacco Cessation Counseling Been Provided? No MIGRATION.501951 5231 Information not available 07/12/2022 Are You Currently In School? No MIGRATION.423250 4887 Information not available 07/12/2022 Do You Have Any Dietary Restrictions? No MIGRATION.491184 1856 Information not available 07/12/2022 Do You Or Have You Ever Used Any Other Forms Of Tobacco Or Nicotine? No MIGRATION.591110 5512 Information not available 07/12/2022 Sex: Unknown Functional Status Question Answer Note LastModified by Organizat ion Details LastModified Time What is your exercise level? Occasional [id number] 26 Information not available 07/12/2022 Mental Status None recorded. Family History Relationship Description Onset Age of this Age Resolved Age Notes LastModified by Organization Details LastModified Time Mother Diabetes mellitus [id number] Not available 07/12/2022 09:13:40 Medical History Condition Response BLINDNESS N CYSTITIS N RHEUMATIC FEVER N BLADDER PROBLEMS N KIDNEY STONES N Enlarged Prostate N MRSA N SLEEP APNEA N INFECTIOUS DISEASE N HEART ARRHYTHMIA N LUNG DISEASE/DISORDER N PROSTATE N INSOMNIA N HISTORY OF DRUG ABUSE N COPD N RADIATION / CHEMOTHERAPY N HIGH CHOLESTEROL / HYPERLIPIDEMIA N HYPERTHYROIDISM N UTI N BLOOD DISEASES N EDEMA N HYPOTHYROIDISM N SHINGLES N BOWEL PROBLEMS N DEPRESSION (INCLUDING POST ) N BACK / NECK PROBLEMS N HAVE YOU BEEN HOSPITALIZED OR SEEN IN [facility] IN THE PAST YEAR ? N STROKE/TIA N THYROID DISEASE N BENIGN PROSTATIC HYPERPLASIA N DIALYSIS N OBESITY N GERD/NAUSEA N ANEURYSM N OSTEOPOROSIS N URINARY/BLADDER/KIDNEY PROBLEMS N Increased Urination N CORONARY ARTERY DISEASE (CAD) N ARTHRITIS N USE OF BLOOD THINNERS N NO SIGNIFICANT PAST MEDICAL HISTORY N DIABETES, TYPE N EMPHYSEMA N GASTROINTESTINAL DISORDER N PARKINSON N GASTROINTESTINAL BLEEDING N BLOOD CLOTS N Difficulty Urinating N ASTHMA N HEPATITIS / LIVER DISEASE N CATARACTS N GOUT N SLEEP DISORDER N ALZHEIMER'S DISEASE N ERECTILE DYSFUNCTION N HERPES N HEADACHES/MIGRAINES N SEIZURES/EPILEPSY N GI PROBLEMS N Low Testosterone N HEART MURMUR N PACEMAKER N DIZZINESS N HEART DISEASE/HEART PROBLEMS N AIDS/HIV N KIDNEY DISEASE N MULTIPLE SCLEROSIS N LIVER DISEASE N MALE HYPOGONADISM N HYPERTENSION N CANCER: SPECIFY Y TOURETTE'S N BLOOD TRANSFUSION N ANESTHESIA COMPLICATIONS N ANEMIA/BLOOD DISORDER N ATRIAL FIBRILLATION N AUTOIMMUNE DISEASE N TUBERCULOSIS N GLAUCOMA N Gynecological HistoryNo gynecological history recorded. Obstetrics History GPAL:G 0 P 0 0 0 0 Immunizations Vaccine Type Date Status Note Provider Nam e and Address Organization Details Recorded Time Influenza, split virus, quadrivalent, PF 05/24/2023 completed Kylah Harry MD [address] [place] [address], [id number], [facility] 05/30/2023 08:02:24 Past Encounters Encounter ID Performer Location Encounter Start Date Encounter Closed Date Diagnosis/Indication Diagnosis SNOMED-CT Code Diagnosis ICD10 Code Diagnosis Note [id number] [facility] [address] [place] [address] 01/05/2021 00:00:00 01/05/2021 08:12:59 [id number] [facility] [address] [place] [address] 01/07/2021 00:00:00 01/07/2021 18:24:48 [id number] [facility]_[address] [place] [address] 02/09/2021 00:00:00 02/09/2021 08:17:54 [id number] [facility] [address] [facility] [place] [address] 03/29/2021 00:00:00 03/30/2021 08:36:58 [id number] [facility] [address] [address] 08/11/2021 00:00:00 08/11/2021 12:44:00 [id number] [address] 09/08/2021 00:00:00 09/08/2021 09:58:15 [id number] Kylah Harry MD [facility] [address] [facility] [place] [address] 11/21/2022 12:08:11 11/21/2022 12:39:14 Hyperkalemia 00288328 E87.5 pt noted elevated potassium on labs done last month by oncologyre check today Anxiety 36246385 F41.9 in good control on venlafaxin e ER 150 mghaving sexual side effects and fatigue but reluctant to change now, has failed many other optionscou ld consider pristiq in future if the s/e become more bothersome Attention deficit hyperactivity disorder 150530900 F90.9 restart methylphen idate 5 mg dailyconsi sue extended release concerta in future depending on how well symptoms are managedPt understand s this medication has risk for abuse/depe ndence and agrees to take it only as prescribed and to guard from loss/theft [place] prescripti on monitoring website reviewedf/ u by patient portal in 4 weeks Chronic ly mphoid leukemia, disease 38131315 C91.[address] Card [id number] Kylah Harry MD [facility] [address] [place] [address] 05/24/2023 11:49:12 05/24/2023 13:39:18 Anxiety 90206948 F41.9 in good control on venlafaxin e ER 150 mghaving sexual side effects and fatigue but reluctant to change now, has failed many other optionscou ld consider pristiq in future if the s/e become more bothersome update 05/24/23:lew s failed alprazolam , buproprion , sertraline , paroxetine , citalopram venlafaxin e is effective for mood, but causes fatigue and significan t sexual side effectstri al of desvenlafa xine ER 50 mg daily for anxiety, it is known to have decreased risk of sexual side effects Attention deficit hyperactivity disorder 624269571 F90.9 restart methylphen idate 5 mg dailyconsi sue extended release concerta in future depending on how well symptoms are managedPt understand s this medication has risk for abuse/depe ndence and agrees to take it only as prescribed and to guard from loss/theft [place] prescript[place] website reviewedf/ u by patient portal in 4 weeks update: stable, refill given Administra tion of influenza vaccine [id number] Z23 [id number] YULIYA Gallo [facility] Primary [facility] [place] [address] [employer] [facility] [address] [place] [address] 11/22/2023 16:30:08 11/22/2023 16:54:34 Long-term drug therapy 243504141 Z79.899 Pt denies any lending, selling, or borrowing of medication s. Denies any cp, sob, palpitatio ns, or unusual weight loss.Revie wed controlled substance agreement requiremen ts. Ref[place]. [id number] YULIYA Gallo [place] [address] [employer] [facility] [address] [place] [address] 03/06/2024 11:49:18 03/06/2024 12:48:27 Long-term drug therapy 042739739 Z79.899 Pt denies any lending, selling, or borrowing of medication s. Denies any cp, sob, palpitatio ns, or unusual weight loss.Revie wed controlled substance agreement requiremen ts. [place]. Attention deficit hyperactivity disorder 595108586 F90.9 Health Concerns Section Related Observation LastModified by Organization Detai ls LastModified Time None Recorded Concern Status LastModified by Organization Details LastModified Time None Recorded Advance Directives Directive None Recorded Payers Encounter Date Sequence Insurance Name Policy Number Policy White Covered Member ID White Member ID Guarantor Name 11/21/2022 1 [facility] ON OR AFTER 11/11/20 (MEDICAID REPLACEMENT - HMO) Natalya De Souzaick [id number] Natalya De Souzaick 05/24/2023 1 [facility] ON OR AFTER 11/11/20 (MEDICAID REPLACEMENT - HMO) Natalya Dixonddick [id number] Natalya De Souzaick 11/22/2023 1 [facility] ON OR AFTER 11/11/20 (MEDICAID REPLACEMENT - HMO) Natalya De Souzaick [id number] Natalya De Souzaick 03/06/2024 1 [facility] ON OR AFTER 11/11/20 (MEDICAID REPLACEMENT - HMO) Natalya Dixonddick [id number] Natalya Guaman Notes Date Note Type Note Provider Name and Address Organization Details Recorded Time 11/21/2022 text/html here to f/u on m eds. She is currently on venlafaxine ER 150 mg daily. She does have fatigue with it and some sexual side effects, but her anxiety is in good control so she is reluctant to change. Recent labs with oncology showed elevated potassium but she does not recall number. She would like to resume her methylphenidate 5 mg in AM, she did well on this in the past and it helped with fatigue and focus. Kylah Harry MD [address] [place] [address], [place] [address], [place], [address], [facility] [employer] [facility] 11/21/2022 12:37:16 05/24/2023 text/html here to f/u on m eds. She is currently on venlafaxine ER 150 mg daily. She does have fatigue with it and some sexual side effects, but her anxiety is in good control so she is reluctant to change. Recent labs with oncology showed elevated potassium but she does not recall number. She would like to resume her methylphenidate 5 mg in AM, she did well on this in the past and it helped with fatigue and focus. update 05/24/23: Mood is not in good control off medication. Insurance denied pristiq. She has failed alprazolam, buproprion, sertraline, paroxetine, citalopram. Venlafaxine was effective for mood, but caused significant sexual side effects. Kylah Harry MD [address], [employer], [place], [address], [facility] [employer] [facility] 06/14/2023 15:39:25 11/22/2023 text/html pt is here for f/u YULIYA Kate [address], [address], [place], [address], [facility] [employer] [facility] 11/23/2023 09:30:04 03/06/2024 text/html pt is here for f/u YULIYA Kate [address], [address], [place], [address], [facility] [employer] [facility] 03/06/2024 12:26:02 OBGyn Episode No OBEpisode recorded.
--- OUTSIDE RECORDS SUMMARY | 2024-06-09 14:57 | XMS_ITS | Continuity of Care Document ---
Author Organization [facility] Address [address] [place] [address] [address] [place] [address] Phone Care Team Providers Care Electronic Engineering Technician Name Role Phone Pond OD, Daniel Unavailable Unavailable Advance Directives Directive Yes / No Effective Date File Name No Information Encounters Encounter Description Practice Location Reason(s) For Visit Diagnoses Date Provider Providers Copied on Encounter [facility], [address] [place] [address] [address], [place], [place], [id number], [place] tel:[phone] SEC [facility] [place] No Information Jul- 7-200 4 Pond OD [facility]. [facility] [address] [place] [address], [place], [place], [facility], [place]. tel:[phone] Referring Provider: Cristina Carr OD [facility] [address], [place], [place], [facility]. tel:[phone] Family History Family Member Type Diagnosis Age At Onset No Information Payers Payer name Insurance type Covered democrat ID Authoriza tion(s) Medicaid [facility] [id number] Social History Type Description Quantity Date Captured Comments Sex Female Smoking Status No Information Chief Complaint And Reason For Visit No Information Reason For Referral Reason For Referral No Information History Of Present Illness Encounter Date Complaint History Of Prese nt Illness No Information Functional Status Date Functional Assessmen t No Information Instructions Date Instruction Additional Infor mation No Information Assessments Type Assessment Date No Information Patient Care Teams Name Effective Dates (start - stop) Status Members No Information
--- OUTSIDE RECORDS SUMMARY | 2024-06-09 14:57 | XMS_ITS | CONTINUITY OF CARE DOCUMENT ---
Author Name winter max Address Unknown Organization [facility] Address [address] [place] [address] [address] [place] [address] Phone [phone] Care Team Providers Care Remote Coders Name Role Phone winter max Unavailable Unavailable INSURANCE PROVIDERS Payer name Policy type / Coverage type [place] red green party ID [facility] Medicaid [id number]
--- OUTSIDE RECORDS SUMMARY | 2024-06-09 14:58 | XMS_ITS | Encounter Summary ---
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) Social History Tobacco Use Types Packs/Day Years Used Date Smoking Tobacco: Every Day Cigarettes 1 3 Alcohol Use Standard Drinks/Week Comments No 0 (1 standard drink = 0.6 oz pur e alcohol) Sex and Gender Information Value Date Recorded Sex Assigned at Not on file Gender Identity Not on file Sexual Orientation Not on file documented as of this encounter Plan of Treatment Not on file documented as of this encounter Procedures Procedure Name Priority Date/Time Associated Diagnosis Comments CYTOGENETICS CANCER PANEL Routine 01/11/2016 3:38 PM CDT Chronic lymphocytic leukemia of B-cell type not having achieved remission documented in this encounter Results * CYTOGENETICS CANCER PANEL (01/11/2016 3:38 PM CDT) Pathologist [facility] Indication for Study CLL CLL FISH panel requested by physician 6 10:38 AM T [facility] CYTOGENOMIC [facility] Results Cytogenetics Fluorescence In-Situ Hybridization (FISH): ??Analysis of 100 to 200 interphase peripheral blood cells hybridized to each of dual labeled MYB/CEP6, triple labeled I63R210/13q34/CEP12, dual labeled p53/JOYCE, dual labeled dual fusion IGH/CCND1 specific fluorescent labeled probes* directed onto 6q23/CEP6, 13q14/3q34/12cen,17p 13/11q22 and 14q32/11q13 showed the following results nuc summer(CEP6,MYB)x2[200] ,(CCND1,IGH)x2[184/2 00],(JOYCE,p53)x2[200] ,(RJC55m3,U10Y416c5, VRTG7m6)[21/100],(CE P12x2,A53I623m6,LAMP 1x2)[55/100] Abnormal 6 10:38 AM T [facility] CYTOGENOMIC [facility] Interpretation FISH of CLL panel was positive for G23J692 showing one signal of Z26R949 in 55% and zero signals of P84K799 in 21% of cells. All other probes showed normal signal patterns in most cells. FISH results indicate the presence of a 13q14 deletion in 55% of cells, as well as a subclone with a biallelic deletion of 13q14 in 21% of cells. Deletion of 13q14 is commonly seen in lymphoproliferative disorders. In particular, deletion of 13q14 is the most common structural abnormality found in CLL (40% of all patients with CLLs). The presence of biallelic deletion in a subclone does not seem to have a prognostic impact. The prognostic association is favorable. Clinicopathological correlation is suggested. 6 10:38 AM [facility] Disclaimer *This test was developed, and its performance characteristics determined by [facility] as required by CLIA '88 Regulations. It has not been cleared or approved for specific uses by the U.S. Food and Drug Administration. The FDA has determined that such clearance or approval is not necessary. This test is used for clinical purposes. It should not be reported as investigational or for research. --------- Notes for FISH probes: 1- At the pretreatment level, the cutoff values for trisomy is 1%, dual breakapart is 3 to 5%, double fusion is 1%, and monosomy/deletion is 5 to 8% for no FFPE specimen and 20% for FFPE specimen. ??Efficiency of the probe intensity was acceptable overall. 2- At the post-treatment level, any identified percentage found below the pretreatment cutoff values could not be interpreted unequivocally and needs to be correlated with clinicopathological and clinical findings. At the post treatment level, a low percentage could either represent an actual minimal residual disease or an actual nature of normal cell division. 3- Cutoff values are combined for all different probes forming a range of percentages which covers low/high ends of each probe that fluctuate due to environmental conditions. Percentages that are close to the cutoff values have to be interpreted in correlation with clinicopathological and clinical findings. 4- An additional validation is performed by correlating pathology with cytogenetic findings. 6 10:38 AM CDT [facility] CYTOGENOMIC [facility] Client Information [facility] ??- ??[phone] [id number] FISH CLL 6 10:38 AM CDT [facility] CYTOGENOMIC [facility] Other BLOOD SPECIMEN / Unknown 01/11/2016 3:38 PM CDT 01/12/2016 9:43 AM CDT Daniel Solis MD LAB - PATHOLOGY/CY TOLOGY ORDERABLES [facility] CYTOGENOMIC [facility] [address] [place] [address] documented in this encounter Visit Diagnoses Diagnosis Chronic lymphocytic leukemia of B-cell type not having achieved remission (HCC) Chronic lymphoid leukemia, without mention of having achieved remission documented in this encounter Care Teams Guidance Services Coordinator Relationship Specialty Start Date End Date Finesse Noonan MD [address] [place] [address] PCP - General 05/19/09 06/05/18 Kylah Harry MD [address] [place] [address] [place] [address] PCP - General 06/06/18 documented as of this encounter
--- OUTSIDE RECORDS SUMMARY | 2024-06-09 14:58 | XMS_ITS | Referral Summary ---
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 Gender Identity Female 07/05/2020 1:07 PM SOLID WASTE MANAGER Sexual Orientation Not on file Occupation Industry Job Start Date Job End Date Unemployed Not on file Not on file Not on file Last Filed Vital Signs Vital Sign Reading [...] 02/22/2023 11:45 AM CDT Plan of Treatment Not on file Insurance [facility] Care Teams Hospital Account Liaison Relationship Specialty Start Date End Date Kylah Harry MD PCP - General Family Medicine 10/29/17 Daniel Solis MD Referring Physician Internal Medicine 10/29/17 Antwon Card DO [address] [place] [address] Medical Oncologist/Paramedical Aide Hematology and Oncology 02/26/18
--- OUTSIDE RECORDS SUMMARY | 2024-06-09 14:58 | XMS_ITS | Referral Summary ---
Author Organization [facility] Address [address] [place] [address] Care Team Providers Care Director Transition Name Role Phone Kylah Harry MD Primary Care Provider [phone] Source Comments [facility],non-owned Affiliates and Associated Physician Practices is amultiple site organization consisting of ambulatory clinics and hospital sitesin [place], [place], [place]. This disclosure is being madepursuant to the Care Everywhere program and may not contain all information available regarding this patient. Last updated 18.[facility] Allergies Active Allergy Reactions Criticality Noted Date Comments Adhesive Sensitivity Rash 05/19/2009 Medications * Be aware that medications may not be up to date on this document. Alwaysverify current medications with the patient. Medication Sig Dispensed Refills Start Date End Date Status gabapentin (NEURONTIN) 300 MG capsule 300 mg 2 times daily 05/21/2018 Active methylphenidate (RITALIN) 5 MG tablet Take 5 mg by mouth 2 tabs in the am and 1 in the pm 05/20/2018 Active oxyCODONE-acetaminop hen (PERCOCET) 10-325 MG tablet Take 1 tablet by mouth 05/20/2018 Active diclofenac sodium EC (VOLTAREN) 75 MG tablet Take 75 mg by mouth 2 times daily Active methylPREDNISolone (MEDROL DOSEPAK) 4 MG tablet Take by mouth as directed 1 Each 07/10/2018 Active predniSONE (DELTASONE) 10 MG tablet Take 1 tablet by mouth once daily 30 tablet 1 08/07/2018 Active Active Problems Problem Noted Date Diagnosed Date Trauma 05/19/2009 Social History Tobacco Use Types Packs/Day Years Used Date Smoking Tobacco: Every Day Cigarettes 1 3 Smokeless Tobacco: Never Alcohol Use Standard Drinks/Week Comments No 0 (1 standard drink = 0.6 oz pur e alcohol) Sex and Gender Information Value Date Recorded Sex Assigned at Not on file Gender Identity Not on file Sexual Orientation Not on file Last Filed Vital Signs Vital Sign Reading Time Taken Comments Blood Pressure 105/66 07/10/2018 1:31 PM [facility] Pulse 76 07/10/2018 1:31 PM [facility] Temperature 36.9 ??C (98.5 ??F) 07/10/2018 1:31 PM CS T Respiratory Rate 18 07/10/2018 1:31 PM [facility] Oxygen Saturation 97% 07/10/2018 1:31 PM [facility] Inhaled Oxygen Concentration - - Weight 60.3 kg (132 lb 14.4 oz) 07/10/2018 1:31 PM [facility] Height 157.5 cm (5' 2 ) 07/10/2018 1:31 PM [facility] Body Mass Index 24.31 07/10/2018 1:31 PM [facility] Plan of Treatment Not on file Procedures Procedure Name Priority Date/Time Associated Diagnosis Comments HEPATITIS C ANTIBODY STAT 01/11/2016 3:58 PM CDT HIV-1 HIV-2 ANTIGEN/ANTIBODY STAT 01/11/2016 3:58 PM CDT from Last 3 Months or Most Recently Relevant to Health Maintenance Results * HIV-1 HIV-2 ANTIGEN/ANTIBODY (01/11/2016 3:58 PM CDT) HIV Antigen/Antibod y 1 & 2 Non-reacti ve Non-react [facility] Comment: Neither HIV-1 p24 Antigen nor HIV-1/HIV-2 Antibodies are detected. ? Blood specimen (specimen) BLOOD SPECIMEN / Unknown 01/11/2016 3:58 PM CDT 01/11/2016 4:19 PM CDT Daniel Solis MD LAB - HEMATOLOGY O RDERABLES [address] [phone] * HEPATITIS C ANTIBODY (01/11/2016 3:58 PM CDT) Hepatitis C Antibody Non-react mark Non-reac tive [facility] Comment: Hepatitis C Antibody screen indicates no serologic evidence of past or current infection with Hepatitis C Virus. Patients with unexplained liver disease who are immunocompromised or suspected of having acute Hepatitis C infection may benefit from Nucleic Acid Test ([facility]) for Hepatitis C Viral RNA to confirm Hepatitis C status. Blood specimen (specimen) BLOOD SPECIMEN / Unknown 01/11/2016 3:58 PM CDT 01/11/2016 4:19 PM CDT Daniel Solis MD LAB - CHEMISTRY OR DERABLES [address] [phone] from Last 3 Months or Most Recently Relevant to Health Maintenance Care Teams Director Transition Relationship Specialty Start Date End Date Kylah Harry MD [address] [place] [id number] PCP - General 06/06/18
--- OUTSIDE RECORDS SUMMARY | 2024-06-09 14:58 | XMS_ITS | Patient Health Summary ---
Author Organization [facility] Address [address] [place] [address] Care Team Providers Care Windows System Admin Name Role Phone Kylah Harry MD Primary Care Provider Note from [facility],non-owned Affiliates and Associated Physician Practices is amultiple site organization consisting of ambulatory clinics and hospital sitesin [place], [place], [place] and [place]. This disclosure is being madepursuant to the Care Everywhere program and may not contain all information available regarding this patient. Last updated 18.[facility] Allergies * Adhesive Sensitivity(Rash) Medications * Be aware that medications may not be up to date on this document. Alwaysverify current medications with the patient. * gabapentin (NEURONTIN) 300 MG capsule(Started 05/21/2018) 300 mg 2 times daily * methylphenidate (RITALIN) 5 MG tablet(Started 05/20/2018) Take 5 mg by mouth 2 tabs in the am and 1 in the pm * oxyCODONE-acetaminophen (PERCOCET) 10-325 MG tablet(Started 05/20/2018) Take 1 tablet by mouth * diclofenac sodium EC (VOLTAREN) 75 MG tablet Take 75 mg by mouth 2 times daily * methylPREDNISolone (MEDROL DOSEPAK) 4 MG tablet(Started 07/10/2018) Take by mouth as directed * predniSONE (DELTASONE) 10 MG tablet(Started 08/07/2018) Take 1 tablet by mouth once daily 1 refill remaining Active Problems Problem Noted Date Diagnosed Date [...] Comments Blood Pressure 105/66 07/10/2018 1:31 PM METAL CLEANER Pulse 76 07/10/2018 1:31 PM METAL CLEANER Temperature 36.9 ??C (98.5 ??F) 07/10/2018 1:31 PM CS T Respiratory Rate 18 07/10/2018 1:31 PM METAL CLEANER Oxygen Saturation 97% 07/10/2018 1:31 PM METAL CLEANER Inhaled Oxygen Concentration - - Weight 60.3 kg (132 lb 14.4 oz) 07/10/2018 1:31 PM METAL CLEANER Height 157.5 cm (5' 2 ) 07/10/2018 1:31 PM METAL CLEANER Body Mass Index 24.31 07/10/2018 1:31 PM METAL CLEANER Procedures * PET CT WHOLE BODY(Performed 06/26/2018) Performed for CLL (chronic lymphoid leukemia) with failed remission (HCC) * GLUCOSE SCREEN - POCT (IP) [facility](Performed 06/26/2018) * CYTOGENETICS CANCER PANEL(Performed 06/26/2018) Performed for CLL (chronic lymphoid leukemia) with failed remission (HCC) * DIFFERENTIAL MANUAL(Performed 06/12/2018) Performed for CLL (chronic lymphoid leukemia) with failed remission (HCC) * LAB MISC TEST(Performed 06/12/2018) Performed for Trauma * CBC W AUTO DIFFERENTIAL(Performed 06/12/2018) Performed for CLL (chronic lymphoid leukemia) with failed remission (HCC) * LAB MISC TEST(Performed 03/28/2016) * DIFFERENTIAL MANUAL(Performed 03/28/2016) * COMPREHENSIVE METABOLIC PANEL(Performed 03/28/2016) * CBC W AUTO DIFFERENTIAL(Performed 03/28/2016) * CBC W AUTO DIFFERENTIAL(Performed 03/28/2016) * PATHOLOGY TISSUE(Performed 02/29/2016) * HCG URINE QUALITATIVE - POCT (IP) [facility](Performed 02/29/2016) * PORPHYRINS URINE QUANT RANDOM(Performed 02/22/2016) * CYTOMEGALOVIRUS DNA RT-PCR QUANT(Performed 02/22/2016) * COMPLEMENT C1Q BINDING ASSAY(Performed 02/22/2016) * COMPLEMENT C1 ESTERASE INHIBITOR ANTIGEN(Performed 02/22/2016) * KAPPA/LAMBDA LITE CHAIN FREE PANEL(Performed 02/22/2016) * COMPLEMENT C1 ESTERASE INHIBITOR FUNCTION ACTIVITY(Performed 02/22/2016) * TISSUE TRANSGLUTAMINASE AB IGA(Performed 02/22/2016) * COMPLEMENT C4(Performed 02/22/2016) * COMPLEMENT C3(Performed 02/22/2016) * IGA BLOOD(Performed 02/22/2016) * TIFFANY-ABBOTT VIRUS PCR QUANT BLOOD/CSF(Performed 02/22/2016) * PATHOLOGY TISSUE(Performed 02/01/2016) * CHROMOSOME ANALYSIS PANEL(Performed 02/01/2016) * CYTOGENETICS CANCER PANEL(Performed 02/01/2016) * HOLD SPECIMEN DNA TISSUE(Performed 02/01/2016) * CYTOGENETICS CANCER PANEL(Performed 02/01/2016) Performed for Chronic lymphocytic leukemia of B-cell type not having achieved remission * LAB MISC TEST(Performed 02/01/2016) * FLOW CYTOMETRY PANEL(Performed 02/01/2016) * ACTH 60 MINUTES(Performed 02/01/2016) * ACTH 30 MINUTES(Performed 02/01/2016) * PET CT WHOLE BODY(Performed 02/01/2016) * IGVH MUTATION ANALYSIS(Performed 02/01/2016) * ACTH CORTISOL BASELINE(Performed 02/01/2016) * DIFFERENTIAL MANUAL(Performed 02/01/2016) * CBC W AUTO DIFFERENTIAL(Performed 02/01/2016) * LDH BLOOD(Performed 02/01/2016) * COMPREHENSIVE METABOLIC PANEL(Performed 02/01/2016) * CBC W AUTO DIFFERENTIAL(Performed 02/01/2016) * GLUCOSE - POINT OF CARE (AMB) [facility](Performed 02/01/2016) * GLUCOSE - POINT OF CARE (AMB) [facility](Performed 02/01/2016) * LAB MISC TEST(Performed 01/11/2016) * MADDY DIRECT(Performed 01/11/2016) * FISH CLL PANEL(Performed 01/11/2016) * FLOW CYTOMETRY PANEL(Performed 01/11/2016) * DIFFERENTIAL MANUAL(Performed 01/11/2016) * TSH(Performed 01/11/2016) * HEPATITIS C ANTIBODY(Performed 01/11/2016) * HEPATITIS B CORE ANTIBODY TOTAL(Performed 01/11/2016) * HEPATITIS B SURFACE ANTIGEN W RFLX CONFIRMATION(Performed 01/11/2016) * HIV-1 HIV-2 ANTIGEN/ANTIBODY(Performed 01/11/2016) * HAPTOGLOBIN(Performed 01/11/2016) * URIC ACID BLOOD(Performed 01/11/2016) * LDH BLOOD(Performed 01/11/2016) * COMPREHENSIVE METABOLIC PANEL(Performed 01/11/2016) * CBC W AUTO DIFFERENTIAL(Performed 01/11/2016) * RETIC COUNT(Performed 01/11/2016) * CBC W AUTO DIFFERENTIAL(Performed 01/11/2016) * CYTOGENETICS CANCER PANEL(Performed 01/11/2016) Performed for Chronic lymphocytic leukemia of B-cell type not having achieved remission * CULTURE BLOOD(Performed 04/02/2014) * CULTURE BLOOD(Performed 04/02/2014) * CARDIAC RHYTHM STRIP ORDER(Performed 04/22/2010) * CT ANGIO CHEST(Performed 04/18/2010) Performed for Chest pain * D-DIMER(Performed 04/18/2010) * XR CHEST 2VW(Performed 04/18/2010) Performed for Chest pain * MYOGLOBIN BLOOD - POINT OF CARE(Performed 04/18/2010) * B-TYPE NATRIURETIC PEPTIDE - POINT OF CARE(Performed 04/18/2010) * TROPONIN - POINT OF CARE(Performed 04/18/2010) * CKMB - POINT OF CARE(Performed 04/18/2010) * HCG URINE QUALITATIVE - POINT OF CARE(Performed 04/18/2010) * COMPREHENSIVE METABOLIC PANEL(Performed 04/18/2010) * CBC W AUTO DIFFERENTIAL(Performed 04/18/2010) * EKG 12-LEAD(Performed 04/18/2010) Performed for Chest pain * CT HEAD WO CONTRAST(Performed 05/19/2009) Performed for Trauma Results * PET CT WHOLE BODY (06/26/2018 9:43 AM METAL CLEANER) Only the most recent of2 resultswithin the time period is included. Anatomical Region Laterality Modality Positron Emissio n Tomography (PET) 06/26/2018 11:4 9 AM METAL CLEANER Impressions 06/26/2018 3:08 PM METAL CLEANER IMPRESSION: No lymphadenopathy or PET/CT evidence of hypermetabolic malignancy. Report dictated by Parvez Noland MD (president educational institution). This report was approved ??by Parvez Noland ?? on 06/26/2018 2:05 PM . I, Dr. EDGAR FELIPE M.D. have personally reviewed and interpreted this examination/study. This report was electronically signed by EDGAR FELIPE M.D. ??on 06/26/2018 3:08 PM . Narrative 06/26/2018 3:08 PM METAL CLEANER PROCEDURE: PET/CT Study REFERRING PROVIDER: ORA SOLIS HISTORY: Chronic lymphocytic leukemia, also history of reported cervical cancer in 2013 status post partial removal of the cervix, evaluate for subsequent treatment strategy. TECHNIQUE: 9.1 mCi of F-18 FDG by IV in the left antecubital fossa. PET/CT image acquisition from top of the head to the feet after approximately 60 minutes post-injection with the CT being low-dose, non-contrast. No separate report for the CT was generated since it was of non-diagnostic quality. Blood glucose level at the time of injection was 98 mg/dL. COMPARISON: Comparison is made with a PET/CT from 02/01/2016. FINDINGS: Head and neck: No abnormal FDG uptake is seen in the brain. There are no significantly FDG avid or enlarged cervical lymph nodes. Chest: No abnormal FDG uptake is seen within the lungs. The lungs are free of focal consolidation. No suspicious pulmonary nodules are visible. There is no pleural effusion or pneumothorax. There is no supraclavicular, axillary, mediastinal or hilar lymphadenopathy. The heart size is normal. There is no pericardial effusion. Abdomen and pelvis: For reference, SUV max of liver is 2.52. The liver is normal. The gallbladder is surgically absent. No intrahepatic or extrahepatic biliary ductal dilatation is seen. The pancreas is normal. The spleen is normal. The adrenal glands are normal. The kidneys appear normal without evidence of hydronephrosis or hydroureter. Mild diffuse uptake in the stomach is likely inflammatory. The small and large bowel are normal in caliber without obstruction. No free intraperitoneal air or free fluid is identified. No mesenteric or retroperitoneal lymphadenopathy is seen. Musculoskeletal: No suspicious lytic or blastic lesions are identified. No abnormal FDG uptake is seen within the osseous structures. Procedure Note Edgar Felipe MD - 06/26/2018 PROCEDURE: PET/CT Study REFERRING PROVIDER: ORA SOLIS HISTORY: Chronic lymphocytic leukemia, also history of reported cervical cancer in 2013 status post partial removal of the cervix, evaluate for subsequent treatment strategy. TECHNIQUE: 9.1 mCi of F-18 FDG by IV in the left antecubital fossa.PET/CT image acquisition from top of the head to the feet after [id number] minutes post-injection with the CT being low-dose, non-contrast. No separate report for the CT was generated since it was of non-diagnostic quality. Blood glucose level at the time of injection was 98 mg/dL. COMPARISON: Comparison is made with a PET/CT from 02/01/2016. FINDINGS: Head and neck: No abnormal FDG uptake is seen in the brain. There are no significantly FDG avid or enlarged cervical lymph nodes. Chest: No abnormal FDG uptake is seen within the lungs. The lungs are free of focal consolidation. No suspicious pulmonary nodules are visible. Thereis no pleural effusion or pneumothorax. There is no supraclavicular, axillary, mediastinal or hilar lymphadenopathy. The heart size is normal. There is no pericardial effusion. Abdomen and pelvis: For reference, SUV max of liver is 2.52. The liver is normal. The gallbladder is surgically absent. Nointrahepatic or extrahepatic biliary ductal dilatation is seen. The pancreas isnormal. The spleen is normal. The adrenal glands are normal. The kidneys appear normal without evidence of hydronephrosis or hydroureter. Mild diffuse uptake in the stomach is likely inflammatory. The small and large bowel are normal in caliber without obstruction. No free intraperitoneal air or free fluid is identified. No mesenteric or retroperitoneal lymphadenopathy is seen. Musculoskeletal: No suspicious lytic or blastic lesions are identified. No abnormal FDG uptake is seen within the osseous structures. IMPRESSION: No lymphadenopathy or PET/CT evidence of hypermetabolic malignancy. Report dictated by Parvez Noland MD (president educational institution). This report was approved by Parvez Noland on 06/26/2018 2:05 PM . I, Dr. EDGAR FELIPE M.D. have personally reviewed and interpreted this examination/study. This report was electronically signed by EDGAR FELIPE M.D. on06/26/2018 3:08 PM . Ora Solis MD NM ORDERABLES * GLUCOSE SCREEN - POCT (IP) [facility] (06/26/2018 8:17 AM METAL CLEANER) Glucose WB/POC 98 70 - 115 mg/dL [facility] POCT TESTING Blood BLOOD SPECIMEN / Unknown 06/26/2018 8:17 AM METAL CLEANER Ora Solis MD LAB - POINT OF CAR E ORDERABLES [facility] POCT TESTING [address] [phone] * CYTOGENETICS CANCER PANEL (06/26/2018 8:11 AM METAL CLEANER) Only the most recent of4 resultswithin the time period is included. Pathologist [facility] Indication for Study CLL (Pretreatment) 9 7:30 AM [facility] Results Cytogenetics Fluorescence In-Situ Hybridization (FISH): ??Analysis of 100 interphase bone marrow cells hybridized to triple labeled C26P582/13q34/CEP12 specific fluorescent labeled probes* directed onto 13q14/3q34/12cen showed the following results: nuc summer(MXZ97a7,L73R925o 1,ZJWM8w3)[60/100]/C EP12x2,E76V589a4,AL P1x2)[35/100]Abnorma l 9 7:30 AM [facility] Interpretation To rule out minimal residual disease of the previously identified clonal abnormality (see below), FISH was performed using specific probes* as listed in the result section. FISH was positive showing zero or 1 signal of 13q14 probe in 35 and 60% of cells, respectively. FISH results indicate the continued presence of the abnormal clone. Clinicopathological correlation is suggested 9 7:30 AM [facility] Disclaimer *This test was developed, and its performance characteristics determined by [facility] Cytogenetics Laboratory as required by CLIA [...] double fusion is 1%, and monosomy/deletion is 5% for no FFPE specimen and 20% for FFPE specimen. Efficiency of the probe intensity was acceptable overall. [...] performed by correlating pathology with cytogenetic findings. 9 7:30 AM [facility] Historical Cytogenomic Report [id number] on 02/09/2016 Results Cytogenetics ?? Fluorescence In-Situ Hybridization (FISH): ??Analysis of 100 interphase bone marrow cells hybridized to triple labeled I17Y194/13q34/CEP12 specific fluorescent labeled probes* directed onto 13q14/3q34/12cen showed the following results: nuc summer(JBI27r1,E64H254e 0,IRBR3j4)[15/100],( KTL89z5,Z13R687a8,LA MP1x2)[22/100] ?? . ?? Interpretation ?? To rule out minimal residual disease of the previously identified clonal abnormality (see below), FISH was performed using specific probes* as listed in the result section. FISH was positive showing zero or 1 signal of 13q14 probe in 15 and 22% of cells, respectively. FISH results indicate the continued presence of the abnormal clone. Clinicopathological correlation is suggested ?? at 0651 ?? . ?? Disclaimer ?? *This test was developed, and its performance characteristics determined by [facility] Cytogenetics [facility] as required by CLIA [...] and monosomy/deletion is 5 to 8% for no??FFPE specimen and 20% for FFPE specimen. ??Efficiency [...] performed by correlating pathology with cytogenetic findings. ?? . ?? Historical Cytogenomic Report ?? [id number] on 01/13/2016 Results ?? Fluorescence In-Situ Hybridization (FISH): ??Analysis of 100 to 200 interphase peripheral blood cells hybridized to each of dual labeled MYB/CEP6, triple labeled Q38G503/13q34/CEP12, dual labeled p53/JOYCE, dual labeled dual fusion IGH/CCND1 specific fluorescent labeled probes* directed onto 6q23/CEP6, 13q14/3q34/12cen,17p 13/11q22 and 14q32/11q13 showed the following results nuc summer(CEP6,MYB)x2[200] ,(CCND1,IGH)x2[184/2 00],(JOYCE,p53)x2[200] ,(DBG24s5,S57X912k1, KQZW2s8)[21/100],(CE P12x2,L44C506e1,LAMP 1x2)[55/100] Abnormal ?? . ?? Interpretation ?? FISH of CLL panel was positive for T57O153 showing one signal of O15J768 in 55% and zero signals of F34Y063 in 21% of cells. All other probes [...] association is favorable. Clinicopathological correlation is suggested. ?? at 1038 ?? . 9 7:30 AM [facility] Client Information [facility] - [id number] 9 7:30 AM [facility] Embedded Images 9 7:30 AM [facility] Other BLOOD SPECIMEN / Unknown Collection / Unknown 06/26/2018 8:11 AM METAL CLEANER 06/26/2018 9:13 AM METAL CLEANER Ora Solis MD LAB - PATHOLOGY/CY TOLOGY ORDERABLES [facility]OMIC [facility] [address] [place] [address] * LAB MISC TEST (06/12/2018 3:29 PM METAL CLEANER) Only the most recent of4 resultswithin the time period is included. Blood BLOOD SPECIMEN / Unknown Lab Venipuncture / Unknown 06/12/2018 3:29 PM METAL CLEANER 06/12/2018 3:49 PM METAL CLEANER Ora Solis MD LAB SEND OUT [facility] REF LAB NON INTERF [address] [place] [address] * (ABNORMAL) DIFFERENTIAL MANUAL (06/12/2018 3:29 PM METAL CLEANER) Only the most recent of4 resultswithin the time period is included. WBC (corrected for NRBC) 45.3 10? 3 /uL 06/12/2018 4:10 PM [facility] Total Cell Count 100 06/12/2018 4:10 PM [facility] Neutrophils Absolute Manual 9.06(H) 1.60 - 7.00 10? 3 /uL 06/12/2018 4:10 PM [facility] Comment:(BANDS+SEGS) x WBC = NEUT # (ANC) Lymphocyte Absolute Manual 29.45(H) 0.80 - 2.90 10? 3 /uL 06/12/2018 4:10 PM [facility] Monocytes Absolute Manual 3.62(H) 0.14 - 0.66 10? 3 /uL 06/12/2018 4:10 PM [facility] Neutrophil % Manual 20(L) 30 - 60 % 06/12/2018 4:10 PM [facility] Lymphocyte % Manual 65(H) 20 - 45 % 06/12/2018 4:10 PM [facility] Monocytes % Manual 8 2 - 10 % 06/12/2018 4:10 PM [facility] Atypical Lymphocyte % Manual 7(H) 0 % 06/12/2018 4:10 PM [facility] Platelet Estimate Adequate Adequate 06/12/2018 4:10 PM [facility] RBC Morphology Normal 06/12/2018 4:10 PM [facility] Blood BLOOD SPECIMEN / Unknown Lab Venipuncture / Unknown 06/12/2018 3:29 PM METAL CLEANER 06/12/2018 3:49 PM METAL CLEANER Ora Solis MD LAB - HEMATOLOGY O RDERABLES [facility] [address] [phone] * (ABNORMAL) CBC WITH DIFFERENTIAL (06/12/2018 3:29 PM METAL CLEANER) Only the most recent of8 resultswithin the time period is included. WBC 45.3(H) 3.5 - 10.5 10? 3 /uL 06/12/2018 3:56 PM [facility] Comment:Checked by periphera l smear. RBC 4.50 3.90 - 5.00 10? 6 /uL 06/12/2018 3:56 PM [facility] Hemoglobin 13.7 12.0 - 15.5 g/dL 06/12/2018 3:56 PM [facility] Hematocrit 42.0 35.0 - 45.0 % 06/12/2018 3:56 PM [facility] MCV 93.3 81.0 - 97.0 fL 06/12/2018 3:56 PM [facility] MCH 30.4 28.0 - 34.0 pg 06/12/2018 3:56 PM [facility] MCHC 32.6 32.0 - 36.0 g/dL 06/12/2018 3:56 PM [facility] Platelet Count 328 150 - 400 10? 3 /uL 06/12/2018 3:56 PM [facility] RDW-SD 45.1 36.0 - 50.0 fL 06/12/2018 3:56 PM [facility] RDW-CV 13.2 11.2 - 14.8 % 06/12/2018 3:56 PM [facility] MPV 10.9 9.3 - 12.8 fL 06/12/2018 3:56 PM [facility] nRBC Absolute 0.07(H) 0 10? 3 /uL 06/12/2018 3:56 PM METAL CLEANER [facility] nRBC Auto 0.2(H) 0 /100 WBC 06/12/2018 3:56 PM METAL CLEANER [facility] Blood BLOOD SPECIMEN / Unknown Lab Venipuncture / Unknown 06/12/2018 3:29 PM METAL CLEANER 06/12/2018 3:49 PM METAL CLEANER Ora Solis MD LAB - HEMATOLOGY O RDERABLES [facility] [address] [phone] * (ABNORMAL) COMPREHENSIVE METABOLIC PANEL (03/28/2016 2:37 PM METAL CLEANER) Only the most recent of4 resultswithin the time period is included. BUN 10 7 - 26 mg/dL [facility] Creatinine 0.7 0.6 - 1.2 mg/dL [facility] Sodium 138 136 - 145 mmol/L [facility] Potassium 3.8 3.5 - 4.5 mmol/L [facility] Chloride 105 98 - 107 mmol/L [facility] CO2 19(L) 22 - 29 mmol/L [facility] Glucose 125(H) 70 - 115 mg/dL [facility] Calcium 9.3 8.4 - 10.2 mg/dL [facility] Protein Total 7.3 6.0 - 8.3 g/dL [facility] Albumin 4.1 3.4 - 5.0 g/dL [facility] Bilirubin Total 1.1 0.2 - 1.2 mg/dL [facility] Alkaline Phosphatase 57 40 - 150 Units/L [facility] ALT 14 0 - 55 Units/L [facility] AST 13 5 - 34 Units/L [facility] Anion Gap 18 8 - 18 [facility] BUN/Creatinine Ratio 14 7 - 23 [facility] Osmolality Calculated 287 270 - 300 mOsm/kg [facility] Albumin/Globulin Ratio 1.3 1.1 - 2.3 [facility] eGFR >60 >60 mL/min/1.7 3 m2 [facility] Blood specimen (specimen) BLOOD SPECIMEN / Unknown 03/28/2016 2:37 PM METAL CLEANER 03/28/2016 3:05 PM METAL CLEANER Ora Solis MD LAB - CHEMISTRY OR DERABLES [facility] [address] [phone] * PATHOLOGY TISSUE (02/29/2016 1:10 PM CDT) Only the most recent of2 resultswithin the time period is included. Pathologist [facility] Surgical Pathology Tissue ACCESSION No: [id number] PRE-OP DIAGNOSIS: ?? Abnormal PET scan with uptake in esophagus and upper stomach in a pt with CLL. ??Chronic diarrhea. OPERATIVE PROCEDURE/FINDINGS: ??Possible Souza's esophagus. Possible gastritis in cardia. Normal duodenum, colon and TI. EGD. ??Colonoscopy. ??EGD with biopsy ? duodenal biopsy. Gastric cardia biopsy. ??Colon with biopsy ? random colon biopsy. ??Terminal ileum biopsy. FINAL DIAGNOSIS: DUODENUM, BIOPSY (A): - ? DUODENAL MUCOSA WITH INTRAEPITHELIAL LYMPHOCYTOSIS (SEE COMMENT) - ? FOCAL FOVEOLAR METAPLASIA STOMACH, CARDIA, BIOPSY (B): - ? CARDIA AND OXYNTIC MUCOSA WITH CHRONIC ACTIVE GASTRITIS - ? HELICOBACTER PYLORI PRESENT - ? NO INTESTINAL METAPLASIA OR DYSPLASIA IDENTIFIED ESOPHAGUS, DISTAL, BIOPSY (C): - ? CARDIA AND OXYNTIC MUCOSA WITH CHRONIC ACTIVE GASTRITIS - ? HELICOBACTER PYLORI PRESENT - ? NO INTESTINAL METAPLASIA OR DYSPLASIA IDENTIFIED - ? SQUAMOUS MUCOSA WITH REACTIVE CHANGES SMALL BOWEL, TERMINAL ILEUM, BIOPSY (D): - ? SMALL INTESTINAL MUCOSA WITH NO SIGNIFICANT HISTOPATHOLOGIC CHANGES COLON, RANDOM, BIOPSY (E): - ? COLONIC MUCOSA WITH NO SIGNIFICANT HISTOPATHOLOGIC CHANGES COMMENT (A): The villus architecture is preserved. ??The increase in surface intraepithelial lymphocytes is mild. This is nonspecific and may be seen in a variety of conditions including Helicobacter pylori gastritis, as in this case, and mild forms of gluten sensitive enteropathy. If suspicion for gluten sensitive enteropathy exists, correlation with serologic tests is necessary. GROSS DESCRIPTION: The specimens are received fixed in formalin in five containers for gross and microscopic examination, each labeled with the patient's name, Natalya Guaman . Specimen A, duodenal biopsy , consists of four soft, yellow-gudino tissue fragments ranging in greatest dimension from 0.2 to 0.5 cm, with an aggregate measurement of 0.6 x 0.5 x 0.2 cm. ??The specimen is submitted in toto as cassette A1. Specimen B, gastric cardia biopsy , consists of three fragments of soft, yellow-gudino tissue measuring 0.3, 0.2 and 0.5 cm in greatest dimension. ??The specimen is submitted in toto as cassette B1. Specimen C, distal esophagus biopsy , consists of multiple fragments of soft, kidd-pink tissue fragments with an aggregate measurement of 0.4 x 0.3 x 0.2 cm. ??The specimen is submitted in toto as cassette C1. Specimen D, terminal ileum biopsy , consists of two fragments of soft, yellow-gudino tissue measuring 0.5 and 0.3 cm in greatest dimension. ??The specimen is submitted in toto as cassette D1. Specimen E, random colon biopsy , consists of multiple soft, yellow-gudino tissue fragments ranging in greatest dimension from 0.2 to 0.4 cm, with an aggregate measurement of 0.8 x 0.3 x 0.2 cm. ??The specimen is submitted in toto as cassette E1. KH/edk MICROSCOPIC DESCRIPTION: Microscopic examination supports the diagnosis. JL The performance characteristics of all immunohistochemical and indirect immunofluorescence stains (if any) cited in this report were determined by the [facility] of [facility].?? Some of these tests were developed by our own laboratory and have not been cleared or approved by the US Food and Drug Administration.?The FDA does not require this test to go through premarket FDA review.?These tests are used for clinical purposes. They should not be regarded as investigational or for research.?? This laboratory is certified under the Clinical Laboratory Improvement Amendments (CLIA) as qualified to perform high complexity clinical laboratory testing. This case has been personally reviewed and interpreted by the attending (teaching) pathologist. Final Diagnosis performed by Cecilia Interiano MD. Electronically signed 03/01/2016 [facility] ([facility]) Other (qualifier value) 02/29/2016 1:10 PM CDT 02/29/2016 1:[address] [facility] ([facility]) - 03/01/2016 1:59 PM CDT PROBLEM LIST: ??The problems are not reviewed yet. Please review them in the Problem List activity and refresh this SmartLink. PRE-OP DIAGNOSIS: ??abnormal PET scan with uptake in esophagus and upper stomach in a pt with CLL. Chronic diarhhea OPERATIVE PROCEDURE / FINDINGS: ??Procedure(s) with comments: Possible Souza's esophagus. Possible gastritis in cardia. Normal duodenum, colon and TI EGD COLONOSCOPY EGD W/BIOPSY - Duodenal Biopsy ?? Gastric Cardia Biopsy ?? Esophageal Biopsy COLON W/ BIOPSY - Random Colon Biopsy ?? Terminal Ileum Biopsy POST-OP DIAGNOSIS: * No post-op diagnosis entered * Collection Date->02/29/16 Collection Time-> 1:10 PM Specimen A->Duodenum Duodenal biopsies Specimen B->Stomach Gastric cardia biopsies Specimen C->Esophagus Distal esophageal biopsies Bora Huntley MD LAB - PATHOLOGY/CYTO LOGY ORDERABLES Performing Organization Address City/[facility]/ZIP Co de Phone Number [facility] ([facility]) * HCG URINE QUALITATIVE - POCT (IP) [facility] (02/29/2016 11:24 AM CDT) NEGATIVE [facility] ([facility]) Comment:Ice Hockey Coach: RISA NGUYEN 02/29/2016 11:2 4 AM CDT Bora Huntley MD LAB - POINT OF CARE ORDERABLES Performing Organization Address [facility] Co de Phone Number [facility] ([facility]) * (ABNORMAL) PORPHYRINS URINE QUANT RANDOM (02/22/2016 4:49 PM CDT) Uroporphyrin 16 0 - 20 ug/L [facility] ([facility]) Heptacarboxyl (7-CP) 5(H) 0 - 2 ug/L [facility] (BEAKER) Hexacarboxyl (6-CP) <1 0 - 1 ug/L [facility] ([facility]) Pentacarboxyl (5-CP) 2 0 - 2 ug/L [facility] ([facility]) Coproporphyrin I 40(H) 0 - 15 ug/L [facility] ([facility]) Coproporphyrin III 99(H) 0 - 49 ug/L [facility] ([facility]) Urine specimen (specimen) URINE SPECIMEN OBTAINED BY CLEAN CATCH PROCEDURE / Unknown 02/22/2016 4:49 PM CDT 02/22/2016 5:18 PM CDT Narrative [facility] (BEAKER) - 02/28/2016 1:09 PM CDT Performed at: ??01 - [address] ??[id number] Mine Utility Operator: Saleem Barrera MD, Phone: ??[phone] Meri Ad Fuller TRUCK MECHANIC APPRENTICE-DIRECTOR OF BUSINESS SERVICES LAB - URINE CHEMISTRY ORDERABLES [facility] (BEAKER) * CYTOMEGALOVIRUS DNA RT-PCR QUANT (02/22/2016 4:49 PM CDT) [facility] Cytomegalovirus DNA Quantitative PCR Accession No: [id number] Specimen: Plasma Reference: [id number] Test: Cytomegalovirus Detection (Quantitative) RESULT Not Detected Reference Range Not Detected INTERPRETATION The quantitative CMV DNA PCR determination was performed and is reported in IU/ml. CMV DNA, if present was below the level of detection. COMMENT The CMV DNA analysis utilized real-time PCR, and is reported as Not Detected/Detected/ IU/ml (quantity), or > 300,000 IU/ml. The analytic sensitivity of the assay is 170 IU/ml (95% of samples with this CMV DNA level were detected however values < 170 IU/ml may be sporadically detected). Specimens with CMV detected but less than 170 IU/ml are reported as Detected (< 170 IU/ml). The linear range is from 170 IU/ml to 300,000 IU/ml. Values greater than 300,000 IU/ml are reported as > 300,000 IU/ml. The detection/quantita tion of CMV DNA in serum, plasma, or urine is based on the isolation of CMV DNA followed by real-time PCR in the presence of a reference standard DNA. The standard ensures that DNA was isolated, and that no general significant inhibitors of the real-time PCR process were present. Absolute CMV values or breakpoints for symptomatic disease have not been established and appear to be different between patient populations and laboratories. Therefore, it is important to monitor patients and to follow rises and/or falls in the level of CMV in multiple blood specimens. This test was developed and its performance characteristics determined by the DNA Diagnostic Laboratory at [facility]. It has not been cleared or approved by the U.S. Food and Drug Administration. The FDA has determined that such clearance or approval is not necessary. This test is used for clinical purposes. It should not be regarded as investigational or for research. This laboratory is certified under the Clinical Laboratory Improvement Amendments of 1988 (CLIA-88) as qualified to perform high complexity clinical laboratory testing. Test performed at [facility], [address] [place] [address] ??[id number] This case has been personally reviewed and interpreted by the attending (teaching) pathologist. Final Diagnosis performed by Osmar Quinn PHD. Electronically signed 02/23/2016 [facility] ([facility]) Blood specimen (specimen) BLOOD SPECIMEN / Unknown 02/22/2016 4:49 PM CDT 02/22/2016 5:09 PM CDT Meri Fuller TRUCK MECHANIC APPRENTICE-DIRECTOR OF BUSINESS SERVICES LAB - [facility] IOLOGY ORDERABLES [facility] ([facility]) * COMPLEMENT C1 ESTERASE INHIBITOR FUNCT ACTIVITY (02/22/2016 4:49 PM CDT) C1 Esterase Inhibitor Functional 112 %mean normal [facility] ([facility]) Comment: ?Abnormal ? <41 ?Equivocal ??41 - 67 ?Normal ? >67 Blood specimen (specimen) BLOOD SPECIMEN / Unknown 02/22/2016 4:49 PM CDT 02/22/2016 5:09 PM CDT Narrative [facility] TOMAS MILLER) - 02/25/2016 3:17 PM CDT Performed at: ??01 - [address] ??[id number] Mine Utility Operator: Saleem Barrera MD, Phone: ??[phone] Meri Fuller TRUCK MECHANIC APPRENTICE-DIRECTOR OF BUSINESS SERVICES LAB - CHEMIS TRY ORDERABLES Performing Organization Address City/State/[facility] Co de Phone Number [facility] TOMAS MILLER) * TISSUE TRANSGLUTAMINASE AB IGA (02/22/2016 4:49 PM CDT) TTG Antibody IgA <2 0 - 3 U/mL [facility] TOM[facility] MILL[facility]) Comment: ?Negative ?0 - ??3 ?Weak Positive ?? 4 - 10 ?Positive ? >10 Tissue Transglutaminase (tTG) has been identified as the endomysial antigen. ??Studies have demonstr- ated that endomysial IgA antibodies have over 99% specificity for gluten sensitive enteropathy. Blood specimen (specimen) BLOOD SPECIMEN / Unknown 02/22/2016 4:49 PM CDT 02/22/2016 5:09 PM CDT Narrative [facility] TOMAS MILLER) - 02/24/2016 3:19 PM CDT Performed at: ??01 [facility] [address] [place], [place] ??[id number] Mine Utility Operator: Raleigh Stout PhD, Phone: ??[phone] Meri Duong Jonny TRUCK MECHANIC APPRENTICE-DIRECTOR OF BUSINESS SERVICES LAB - SEROLO GY ORDERABLES Performing Organization Address City/[facility]/ZIP Co de Phone Number [facility] ([place] * C1Q BINDING ASSAY (02/22/2016 4:49 PM CDT) Immune Complexes C1q Binding 1.9 ug Eq/mL [facility] ([facility]) Comment: ? Negative ?< 4.4 ? Equivocal ??4.4 - 10.7 ? Positive ?>10.7 Blood specimen (specimen) BLOOD SPECIMEN / Unknown 02/22/2016 4:49 PM CDT 02/22/2016 5:08 PM CDT Narrative [facility] ([place]) - 02/29/2016 3:13 PM CDT Performed at: ??01 - [address] ??[id number] Mine Utility Operator: Saleem Barrera MD, Phone: ??[phone] Meri Fuller TRUCK MECHANIC APPRENTICE-DIRECTOR OF BUSINESS SERVICES LAB - CHEMIS TRY ORDERABLES [facility] * COMPLEMENT C1 ESTERASE INHIBITOR ANTIGEN (02/22/2016 4:49 PM CDT) C1 Esterase Inhibitor 32 21 - 39 mg/dL [facility] ([facility]) Blood specimen (specimen) BLOOD SPECIMEN / Unknown 02/22/2016 4:49 PM CDT 02/22/2016 5:09 PM CDT Narrative [facility] ([place]) - 02/25/2016 7:08 PM CDT Performed at: ??01 - [facility] [address] ??[id number] Mine Utility Operator: Saleem Barrera MD, Phone: ??[phone] Meri Fuller TRUCK MECHANIC APPRENTICE-DIRECTOR OF BUSINESS SERVICES LAB - CHEMIS TRY ORDERABLES [facility] ([place]) * TIFFANY-ABBOTT VIRUS PCR QUANT BLOOD/CSF (02/22/2016 4:49 PM CDT) Tiffany-Abbott Virus DNA Quantitative RT-PCR Accession No: [id number] Specimen: Peripheral Blood Reference: [id number] Test: Real Time PCR (TaqMan) Detection/Quantita tion of Tiffany Abbott Viral DNA Result: EBV DNA was not detected in the patient specimen. Reference Range Not Detected Interpretation: DNA isolated from the specimen was analyzed in a TaqMan based assay to detect and quantify Tiffany-Abbott DNA. ??A 68 bp fragment of the viral EBNA1 gene is amplified and detected by hybridization with a fluorescently-labe led probe and subsequent hydrolysis. ??Comparison with a standard curve is used for quantification of the EBV DNA. ??Isolation of amplifiable human DNA was confirmed by the successful amplification of a portion of a normal human gene (human growth hormone). EBV DNA was not detected. The reliable lower limit of quantitation of this assay is 3250 copies/ml. This test was developed and its performance characteristics determined by the DNA Diagnostic Laboratory at [facility]. It has not been cleared or approved by the U.S. Food and Drug Administration. The FDA has determined that such clearance or approval is not necessary. This test is used for clinical purposes. It should not be regarded as investigational or for research. This laboratory is certified under the Clinical Laboratory Improvement Amendments of 1988 (CLIA-88) as qualified to perform high complexity clinical laboratory testing. Test performed at [facility], [address] [place] [address] ??[id number] This case has been personally reviewed and interpreted by the attending (teaching) pathologist. Final Diagnosis performed by Vishal Khan PhD, [facility]. Electronically signed 02/29/2016 [facility] ([facility]) Other (qualifier value) 02/22/2016 4:49 PM CDT 02/22/2016 5:09 PM CDT Meri Fuller APRN-DIRECTOR OF BUSINESS SERVICES LAB - MICROB IOLOGY ORDERABLES [facility] ([facility]) * (ABNORMAL) KAPPA/LAMBDA LITE CHAIN FREE PANEL (02/22/2016 4:49 PM CDT) Free [place] Light Chains Quantitative 20.51(H) 3.30 - 19.40 mg/L [facility] ([facility]) Free Lambda Light Chains Quantitative 20.45 5.71 - 26.30 mg/L [facility] ([facility]) [place]/Lambda Ratio 1.00 0.26 - 1.65 [facility] ([facility]) Blood specimen (specimen) BLOOD SPECIMEN / Unknown 02/22/2016 4:49 PM CDT 02/22/2016 5:09 PM CDT Narrative [facility] ([facility]) - 02/25/2016 5:11 PM CDT Performed at: ??01 - [facility] [address] ??[id number] Mine Utility Operator: Raleigh Stout PhD, Phone: ??[phone] Meri Fuller APRN-[facility] LAB - CHEMIS TRY ORDERABLES [facility] ([facility]) * COMPLEMENT C4 (02/22/2016 4:49 PM CDT) Complement C4 19 15 - 57 mg/dL [facility] Blood specimen (specimen) BLOOD SPECIMEN / Unknown 02/22/2016 4:49 PM CDT 02/22/2016 5:04 PM CDT Meri Fuller APRN-DIRECTOR OF BUSINESS SERVICES LAB - SEROLO GY ORDERABLES [address] [phone] * IGA BLOOD (02/22/2016 4:49 PM CDT) IgA 181 87 - 534 mg/dL [facility] Blood specimen (specimen) BLOOD SPECIMEN / Unknown 02/22/2016 4:49 PM CDT 02/22/2016 5:04 PM CDT Meri Fuller TRUCK MECHANIC APPRENTICE-DIRECTOR OF BUSINESS SERVICES LAB - CHEMIS TRY ORDERABLES Performing Organization Address City/[facility]/ZIP Co de Phone Number [address] [phone] * COMPLEMENT C3 (02/22/2016 4:49 PM CDT) Complement C3 96 82 - 193 mg/dL [facility] Blood specimen (specimen) BLOOD SPECIMEN / Unknown 02/22/2016 4:49 PM CDT 02/22/2016 5:04 PM CDT Meri Fuller TRUCK MECHANIC APPRENTICE-DIRECTOR OF BUSINESS SERVICES LAB - CHEMIS TRY ORDERABLES Performing Organization Address City/[facility] Co de Phone Number [address] [phone] * HOLD SPECIMEN DNA (02/01/2016 1:45 PM CDT) [facility] DNA Hold Specimen Accession No: [id number] Specimen: Bone Marrow Reference: [id number] Test: HemOnc Isolation Only RESULT DNA was isolated from the bone marrow specimen and quantified. 200 uL of DNA was isolated with a spectrophotometric concentration of 179 ng/uL and an A260/280 = 1.92. INTERPRETATION No specific testing was performed at this time. COMMENT The DNA will be stored for potential future testing. This test was developed and its performance characteristics determined by the DNA Diagnostic Laboratory at [facility]. It has not been cleared or approved by the U.S. Food and Drug Administration. The FDA has determined that such clearance or approval is not necessary. This test is used for clinical purposes. It should not be regarded as investigational or for research. This laboratory is certified under the Clinical Laboratory Improvement Amendments of 1988 (CLIA-88) as qualified to perform high complexity clinical laboratory testing. Test performed at [facility], [address] [place] [address] ??[id number] [facility] ([place]) Other (qualifier value) BONE MARROW SPECIMEN / Unknown 02/01/2016 1:45 PM CDT 02/01/2016 1:50 PM CDT Ora Solis MD LAB - PATHOLOGY/Cheers ORDERABLES Performing Organization Address City/[facility]/ZIP Co de Phone Number [facility] ([place]) * CHROMOSOME ANALYSIS PANEL (02/01/2016 1:45 PM CDT) Chromosome Analysis FISH See scanned report. [facility] REF LAB NON INTERF Blood specimen (specimen) BONE MARROW SPECIMEN / Unknown 02/01/2016 1:45 PM CDT 02/01/2016 1:50 PM CDT Ora Solis MD LAB - PATHOLOGY/Cheers ORDERABLES Performing Organization Address [facility]/ZIP Co de Phone Number [facility] REF LAB NON INTERF * FLOW CYTOMETRY PANEL (02/01/2016 1:45 PM CDT) Only the most recent of2 resultswithin the time period is included. Flow Cytometry Results Accession No: [id number] Specimen: Bone Marrow Reference: [id number] Reason for test: B-Cell Lymphoma Markers: 16 DIAGNOSIS: BONE MARROW, FLOW CYTOMETRIC IMMUNOPHENOTYPIC ANALYSIS: - ? CD5-POSITIVE MATURE B-CELL LYMPHOMA - ? SEE DESCRIPTION Flow Cytometry Results: Differential ?Result ?Comment FLOW CELL COUNT/uL ?[id number] %VIABILITY * ? 94 %LYMPHOCYTES ? 55 ?? %MONOCYTES ? 3 %GRANULOCYTES ? 42 Cell Region A: Lymphocytes Surface Marker ?Result (%) ?CD3 ? 4 ?CD4 ? 2 ?CD5 ? 95 ?CD8 ? 2 ? CD10 ? 0 ? CD14 ? 0 ? CD19 ? 94 ? CD20 ? 89 ? CD23 ? 79 ? CD38 ? 3 ? CD45 ? 100 ? CD56 ? 1 ? HLA-DR ? 92 ?[place]+CD19+ ? 87 ? Lambda+CD19+ ? 0 ? CD22 ? 83 Peripheral Blood Lymphocyte Adult Normal Reference Range (%) except CD4/CD8 CD1 ? 0 ? CD24 ?11-19 CD2 ? 74-94 ? CD25 ?5-17 CD3 ? 54-94 ? CD33 ?0-7 CD4 ? 40-56 ? CD34 ?0-3 CD4/CD8 ? (0.7-2.7) ?? CD38 ?15-55 CD5 ? 57-93 ? CD45 ?97-100 CD7 ? 58-82 ? CD56 ?6-26 CD8 ? 17-45 ? CD57 ?0-26 CD10 ?1-9 ? CD117 ? 0 CD11b ? 14-42 ? CD138 ? 0-1 CD11c ? 4-14 ?IgG ? 0-7 CD13 ?0-4 ? IgM ? 4-16 CD14 ?0-11 ?IgA ? 2-6 CD15 ?0-1 ? IgD ? 3-15 CD16 ?0-23 ?[place] ? 3-12 CD19 ?8-24 ?Lambda ?3-7 CD20 ?7-17 ?HLA-DR ?9-25 CD23 ?2-16 ?TdT ? 0 Peripheral Blood Monocyte Region Adult Normal Reference Range (%) CD1 ? 0-2 ? CD24 ?0-28 CD2 ? 0-28 ?CD25 ?5-17 CD3 ? 0-13 ?CD33 ?74-100 CD4 ? 20-100 ?CD34 ?0-5 CD5 ? 0-16 ?CD38 ?65-100 CD7 ? 0-3 ? CD45 ?97-100 CD8 ? 0-16 ?CD56 ?0-18 CD10 ?11-39 ? CD57 ?0-8 CD11b ? 84-100 ?CD117 ? 0-1 CD11c ? 89-100 ?CD138 ? 0-1 CD13 ?63-100 ?IgG ? 46-98 CD14 ?79-99 ? IgM ? 0-15 CD15 ?0-37 ?IgA ? 0-16 CD16 ?0-34 ?IgD ? 0-20 CD19 ?0-48 ?[place] ? 0-6 CD20 ?0-10 ?Lambda ?0-7 CD23 ?0-13 ?HLA-DR ?67-100 TdT ? 0 * The established laboratory minimum viability is 70%. Values below this minimum may result in the failure to find an abnormal population of cells. Test performed at [facility], [address] [facility] ??[id number] This test was developed and its performance characteristics determined by The [facility] Laboratory. It has not been cleared by the U.S. Food and Drug Administration. The FDA has determined that such clearance or approval is not necessary. This test is used for clinical purposes. It should not be regarded as investigational or for research. This laboratory is regulated under the Clinical Laboratory Improvement Amendments of 1998 (CLIA) as qualified to perform high complexity clinical testing. IMMUNOPHENOTYPE AND MORPHOLOGY: Flow cytometry of the bone marrow aspirate shows a cell count of 148,500/ul with a viability of 94%. ??55% of the cells are within the small lymphocyte region, 3% are within the large mononuclear region, and 42% are within the granulocyte region. ??Within the small lymphocyte and large mononuclear region, there is an atypical B-cell population expressing CD5, CD19, CD20 (dim), CD22, CD23, HLA-DR, and dim surface kappa light chain. ??By CD5/CD19 co-expression, 50.8% of all events analyzed are atypical B-cells. A bone marrow aspirate smear from the flow cytometry specimen prepared in the [facility] Department of Pathology is reviewed for senior quality manager purposes. 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 ??Mantle cell lymphoma remains a differential diagnostic consideration, though is less likely. ??Correlation with clinical findings, concurrent bone marrow biopsy (with cyclin D1 IHC pending), and relevant cytogenetic/molecular studies is required. KM/BS/MN/met This case has been personally reviewed and interpreted by the attending (teaching) pathologist. Final Diagnosis performed by Xenia Ramirez MD. Electronically signed 02/02/2016 [facility] ([place]) Other (qualifier value) BONE MARROW SPECIMEN / Unknown 02/01/2016 1:45 PM CDT 02/01/2016 1:[address] [facility] ([place]) - 02/02/2016 10:45 PM CDT Neoplastic:->Yes Reason for Exam->cll Ora Solis MD LAB - HEMATOLOGY O RDERABLES [facility] ([facility]) * ACTH 60 MINUTES (02/01/2016 12:23 PM CDT) Cortisol 60 Min 24.1 >=20.0 mcg/dL [facility] Blood specimen (specimen) BLOOD SPECIMEN / Unknown 02/01/2016 12:23 PM CDT 02/01/2016 12:39 PM CDT Ora Solis MD LAB - CHEMISTRY OR DERABLES Performing Organization Address City/[facility] Co de Phone Number [address] [phone] * ACTH 30 MINUTES (02/01/2016 11:53 AM CDT) Cortisol 30 Min 20.0 >=20.0 mcg/dL [facility] Blood specimen (specimen) BLOOD SPECIMEN / Unknown 02/01/2016 11:53 AM CDT 02/01/2016 12:03 PM CDT Ora Solis MD LAB - CHEMISTRY OR DERABLES Performing Organization Address [facility] Co de Phone Number [address] [phone] * ACTH CORTISOL BASELINE (02/01/2016 9:20 AM CDT) Cortisol Baseline 8.1 No Reference Range Established mcg/dL [facility] Blood specimen (specimen) BLOOD SPECIMEN / Unknown 02/01/2016 9:20 AM CDT 02/01/2016 10:32 AM CDT Ora Solis MD LAB - CHEMISTRY OR DERABLES Performing Organization Address [facility] Co de Phone Number [address] [phone] * IGVH MUTATION ANALYSIS (02/01/2016 9:20 AM CDT) Interpretation Comment: [facility] ([facility]) Comment:IgVH Somatic Hypermu tation was detected. 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 The IgVH clone isolated is considered hypermutated when the mutation rate compared to the germline sequence is greater than 2.0%. In univariate analysis studies, unmutated VH and high CD38 gene expression levels predicted for shorter survival times. In multivariate analysis, unmutated VH, 17p deletion, 11q deletion, age, WBC and LDH were identified as independent prognostic factors, indicating a complementary role of VH mutation status and genomic aberrations to predict outcome in CLL. Detection Parameters VH1-7 [facility] ([employer]) Result Comment: [facility] OSCARMDMarcela Zapien ([employer]) Comment:Mutated, 6.8% Electronically Signed by Comment: [facility] OSCARMDANGEL ([employer]) Comment: Juanjose Acevedo, Ph.D., DEBBIE on 02/09/2016 at [employer]. Juanjose Acevedo, Ph.D., DEBBIE DABMG, DABCC, DLMcm, M(ASCP)cm, MB(ASCP)cm Methodology Comment [facility] ([employer]) Comment: The Immunoglobulin Heavy Chain Gene Variable Region (IgVH) Somatic Hypermutation Analysis assay is performed using extracted patient RNA as starting material. Subsequent amplification of the IgH gene is performed by polymerase chain reaction (PCR). The PCR products are isolated and sequenced. The nucleotide sequence is comparted to a consensus germline sequence database for the VH gene family. The results are reported as percentage of homology between the patient's VH sequence in comparison with the germline VH sequence using the Basic Local Alignment Search Tool (BLAST) for the Immunoglobulin database at http://www.ncbl.nlm.gov/lgblast. Intended Use Comment [facility] ([employer]) Comment: The IgVH gene mutation status is one of the discriminators of clinical outcome of patients with Chronic Lymphocytic Leukemia (CLL). The results of this analysis are to be interpreted in the context of flow cytometry, hematopathological findings and other clinical data. No therapeutic action should be taken solely based upon these results. Reference Comment [facility] KEISHA [facility] ([place]) Comment: 1. ??A. Jackie et al. (2002) VH mutation status, CD38 expression ?level, genomic aberrations, and survival in chronic lymphocytic ?leukemia. Blood 100(4):5697-2257. 2. ??F. Jacky et al. (1998) Chronic Lymphocytic Leukemia B Cells ?Express Restricted Sets of Mutated and Unmutated Antigen ?Receptors. J Clin Invest 102 (8):8867-6457. 3. ??Tayla Pedro et al. (1999) Unmutated IgVH genes are associated ?with a more aggressive form of chronic lymphocytic leukemia. Blood ?94(6):1218-9857. 4. ??F. Ebony et al. (1998) The complete nucleotide sequence of the ?human immunoglobulin heavy chain variable region locus. J. Exp Med ?188(11):7739-4356. Disclaimer Comment [facility] OSCARPATRICIO ORTIZ ([place]) Comment: Results of this test are for investigational purposes only. The performance characteristics of this assay have been determined by [facility]. The result should not be used as a diagnostic procedure without confirmation of the diagnosis by another medically established diagnostic product or procedure. Blood specimen (specimen) BLOOD SPECIMEN / Unknown 02/01/2016 9:20 AM CDT 02/01/2016 10:32 AM CDT Narrative [facility] RENÉEANGEL ([place]) - 02/11/2016 10:12 AM CDT Performed at: ??01 - [facility] [address], [place], [place] ??[id number] Mine Utility Operator: Nhan Harman Jr, MD, Phone: ??[phone] Ora Solis MD LAB - CHEMISTRY OR DERABLES [facility] ([place]) * (ABNORMAL) LDH BLOOD (02/01/2016 9:20 AM CDT) Only the most recent of2 resultswithin the time period is included. Pathologist [facility] LDH Total 112(L) 125 - 243 Units/L [facility] Blood specimen (specimen) BLOOD SPECIMEN / Unknown 02/01/2016 9:20 AM CDT 02/01/2016 10:32 AM CDT Ora Solis MD LAB - CHEMISTRY OR DERABLES Performing Organization Address [facility] Co de Phone Number [address] [phone] * GLUCOSE - POINT OF CARE (AMB) U (02/01/2016) Only the most recent of2 resultswithin the time period is included. Lexis Aguilera DO LAB - POINT OF CARE ORDERABLES Performing Organization Address [facility] Co de Phone Number [facility] RADIOLOG[facility] * MADDY DIRECT (01/11/2016 3:59 PM CDT) Pathologist [facility] Direct Maddy (ADALBERTO) NEG [facility] Blood specimen (specimen) 01/11/2016 3:59 PM CDT 01/11/2016 4:15 PM CDT Ora Solis MD LAB - BLOOD BANK O RDERABLES Performing Organization Address [facility] Co de Phone Number [facility] [address] [place] [address] * HIV-1 HIV-2 ANTIGEN/ANTIBODY (01/11/2016 3:58 PM CDT) Pathologist [facility] HIV Antigen/Antibod y 1 & 2 Non-reacti ve Non-react mark [facility] Comment: Neither HIV-1 p24 Antigen nor HIV-1/HIV-2 Antibodies are detected. ? Blood specimen (specimen) BLOOD SPECIMEN / Unknown 01/11/2016 3:58 PM CDT 01/11/2016 4:19 PM CDT Ora Solis MD LAB - HEMATOLOGY O RDERABLES Performing Organization Address [facility]/ZIP Co de Phone Number [address] [phone] * FISH CLL PANEL (01/11/2016 3:58 PM CDT) CLL Profile FISH See scanned report. [facility] REF LAB NON INTERF Blood specimen (specimen) 01/11/2016 3:58 PM CDT 01/11/2016 4:16 PM CDT Narrative [facility] REF LAB NON INTERF - 01/13/2016 2:51 PM CDT Green/Na heparin; peripheral blood or bone marrow Ora Solis MD LAB - PATHOLOGY/CY TOLOGY ORDERABLES Performing Organization Address [facility] Co de Phone Number [facility] REF [facility] NON INTERF * URIC ACID BLOOD (01/11/2016 3:58 PM CDT) Uric Acid 4.8 2.6 - 7.2 mg/dL [facility] Blood specimen (specimen) BLOOD SPECIMEN / Unknown 01/11/2016 3:58 PM CDT 01/11/2016 4:19 PM CDT Ora Solis MD LAB - CHEMISTRY OR DERABLES Performing Organization Address [facility] Co de Phone Number [address] [phone] * RETIC COUNT (01/11/2016 3:58 PM CDT) Reticulocyte % 1.4 0.4 - 2.5 % [facility] Reticulocyte Absolute 0.06 0.02 - 0.13 10? 6 /uL [facility] Blood specimen (specimen) BLOOD SPECIMEN / Unknown 01/11/2016 3:58 PM CDT 01/11/2016 4:19 PM CDT Ora Solis MD LAB - HEMATOLOGY O RDERABLES Performing Organization Address City/[facility]/ZIP Co de Phone Number [address] [phone] * HEPATITIS B CORE ANTIBODY (01/11/2016 3:58 PM CDT) HBc Antibody Total Non-reacti ve Non-reacti ve [facility] Blood specimen (specimen) BLOOD SPECIMEN / Unknown 01/11/2016 3:58 PM CDT 01/11/2016 4:19 PM CDT Ora Solis MD LAB - CHEMISTRY OR DERABLES Performing Organization Address [facility] Co de Phone Number [address] [phone] * HEPATITIS B SURFACE ANTIGEN W RFLX CONFIRMATION (01/11/2016 3:58 PM CDT) Hepatitis B Virus Surface Antigen Non-reacti ve Non-reacti ve [facility] Blood specimen (specimen) BLOOD SPECIMEN / Unknown 01/11/2016 3:58 PM CDT 01/11/2016 4:19 PM CDT Ora Solis MD LAB - CHEMISTRY OR DERABLES Performing Organization Address [facility] Co de Phone Number [address] [phone] * TSH (01/11/2016 3:58 PM CDT) TSH 1.452 0.350 - 4.940 uIU/mL [facility] Blood specimen (specimen) BLOOD SPECIMEN / Unknown 01/11/2016 3:58 PM CDT 01/11/2016 4:19 PM CDT Ora Solis MD LAB - CHEMISTRY OR DERABLES Performing Organization Address [facility]/ZIP Co de Phone Number [address] [phone] * HAPTOGLOBIN (01/11/2016 3:58 PM CDT) Haptoglobin 161 14 - 258 mg/dL [facility] Blood specimen (specimen) BLOOD SPECIMEN / Unknown 01/11/2016 3:58 PM CDT 01/11/2016 4:19 PM CDT Ora Solis MD LAB - CHEMISTRY OR DERABLES Performing Organization Address City/[facility]/ZIP Co de Phone Number [address] [phone] * HEPATITIS C ANTIBODY (01/11/2016 3:58 PM CDT) [facility] Hepatitis C Antibody Non-react mark Non-reac tive [facility] Comment: Hepatitis C Antibody screen indicates [...] 3:58 PM CDT 01/11/2016 4:19 PM CDT Ora Solis MD LAB - CHEMISTRY OR DERABLES Performing Organization Address [facility] Co de Phone Number [address] [phone] * CULTURE BLOOD (04/02/2014 4:30 PM METAL CLEANER) Only the most recent of2 resultswithin the time period is included. Pathologist [facility] Culture Blood No Growth at 5 days [facility] Blood specimen (specimen) BLOOD SPECIMEN / Unknown 04/02/2014 4:30 PM METAL CLEANER 04/02/2014 9:30 PM METAL CLEANER Narrative [facility] - 04/07/2014 9:45 PM METAL CLEANER DarwinSpecimen#[id number] Darwin Loc/Rm/Bed: ED// Xin Provider LAB - MICROBIOLOG Y ORDERABLES Performing Organization Address City/[facility]/ZIP Co de Phone Number [address] [phone] * CARDIAC RHYTHM STRIP ORDER (04/22/2010 8:03 PM METAL CLEANER) Narrative Procedure Note Document, Scanned - 04/22/2010 11:47 AM METAL CLEANER Scanned Document CARDIAC SERVICES ORD ERABLES * CT ANGIO CHEST W WO CONTRAST (04/18/2010 12:09 PM METAL CLEANER) Anatomical Region Laterality Modality Chest Computed Tomogra phy 04/18/2010 12:2 2 PM METAL CLEANER Impressions 04/18/2010 12:22 PM METAL CLEANER No pulmonary embolus. Narrative 04/18/2010 12:[address] Chest with contrast Date: 04/18/2010 History: Shortness of breath. Chest pain. Technique: Multislice helical PE protocol Contrast: 100 cc Omnipaque 350 Chest: No filling defects are present in the pulmonary arteries to suggest emboli. The lungs are free of infiltrate or consolidation. ??No pneumothorax or pleural effusion is present. The heart, great vessels, and mediastinum are unremarkable. Procedure Note Noe Sharp MD - 04/18/2010 CT Chest with contrast Date: 04/18/2010 History: Shortness of breath. Chest pain. Technique: Multislice helical PE protocol Contrast: 100 cc Omnipaque 350 Chest: No filling defects are present in the pulmonary arteries to suggest emboli. The lungs are free of infiltrate or consolidation. No pneumothorax or pleural effusion is present. The heart, great vessels, and mediastinum are unremarkable. IMPRESSION No pulmonary embolus. Enoc Juarez MD CT ORDERABLES * D-DIMER (04/18/2010 11:14 AM METAL CLEANER) D-Dimer 1.07 0.43 - 2.8 mg/L [facility] Comment D-Dimer [facility] Comment: ? Elevated results above the normal range may indicate ? DIC in the appropriate clinical setting. ??Serial ? evaluations may yield information regarding the ? clinical course. ? If result is greater than 1.0 mg/L, DVT or PE is possible. BLOOD SPECIMEN / Unknown 04/18/2010 11:14 AM METAL CLEANER 04/18/2010 11:20 AM METAL CLEANER Enoc Juarez MD LAB - COAGULATION OR DERABLES Performing Organization Address [facility] Co de Phone Number [facility] [address] [place] [address] * XR CHEST PA AND LATERAL (04/18/2010 9:38 AM METAL CLEANER) Anatomical Region Laterality Modality Chest Radiographic Aaliyah ging 04/18/2010 9:47 AM METAL CLEANER Impressions 04/18/2010 9:47 AM METAL CLEANER 1. No acute disease process. Narrative 04/18/2010 9:47 AM METAL CLEANER HISTORY: Chest pain. Two views chest, 04/18/2010. FINDINGS: The lungs are clear. The heart, mediastinum and bony thorax are unremarkable. Procedure Note Austen Velazco MD - 04/18/2010 HISTORY: Chest pain. Two views chest, 04/18/2010. FINDINGS: The lungs are clear. The heart, mediastinum and bony thorax are unremarkable. IMPRESSION 1. No acute disease process. Enoc Juarez MD DIAGNOSTIC IMAGING O RDERABLES * B-TYPE NATRIURETIC PEPTIDE - POINT OF CARE (04/18/2010 9:34 AM METAL CLEANER) Pathologist [facility] BNP POCT 7.2 <=100 pg/ml [facility] Performed by [facility] Performed In ER [facility] BLOOD SPECIMEN / Unknown 04/18/2010 9:34 AM METAL CLEANER 04/18/2010 9:36 AM METAL CLEANER Er LAB - POINT OF CARE ORDERABLES Performing Organization Address [facility] Co de Phone Number [facility] [address] [place] [address] * MYOGLOBIN BLOOD - POINT OF CARE (04/18/2010 9:34 AM METAL CLEANER) Myoglobin POCT 32.1 <=170 ng/ml [facility] Performed by EW [facility] Performed In ER [facility] BLOOD SPECIMEN / Unknown 04/18/2010 9:34 AM METAL CLEANER 04/18/2010 9:36 AM METAL CLEANER Er LAB - POINT OF CARE ORDERABLES Performing Organization Address City/[facility] Co de Phone Number [facility] [address] [place] [address] * TROPONIN - POINT OF CARE (04/18/2010 9:34 AM METAL CLEANER) Troponin I POCT < 0.05 SEE BELOW ng/ml [facility] Comment: <0.05 ? Normal 0.05-0.39 Indeterminate >0.4 ? Abnormal Performed by EW [facility] Performed In ER [facility] BLOOD SPECIMEN / Unknown 04/18/2010 9:34 AM METAL CLEANER 04/18/2010 9:36 AM METAL CLEANER Er LAB - POINT OF CARE ORDERABLES Performing Organization Address [facility] Co de Phone Number [facility] [address] [place] [address] * CKMB - POINT OF CARE (04/18/2010 9:34 AM METAL CLEANER) CK-MB POCT < 1.0 <=8.0 ng/ml [facility] Performed by EW [facility] Performed In ER [facility] BLOOD SPECIMEN / Unknown 04/18/2010 9:34 AM METAL CLEANER 04/18/2010 9:36 AM METAL CLEANER Er LAB - POINT OF CARE ORDERABLES Performing Organization Address [facility] Co de Phone Number [facility] [address] [place] [address] * HCG URINE QUALITATIVE - POINT OF CARE (04/18/2010 9:28 AM METAL CLEANER) HCG Qual Urine negative Negative [facility] POCT TESTING QC Verified yes Yes [facility] POC T TESTING Urine specimen (specimen) URINE / Unknown 04/18/2010 9:28 AM METAL CLEANER Enoc Juarez MD LAB - POINT OF CARE ORDERABLES Performing Organization Address City/[facility] Co de Phone Number [place] [address] * EKG 12-LEAD (04/18/2010) Enoc Juarez MD ECG ORDERABLES * CT HEAD NON CONTRAST (05/19/2009 2:19 AM METAL CLEANER) Anatomical Region Laterality Modality Head Computed Tomogra phy 05/19/2009 8:04 AM METAL CLEANER Narrative 05/19/2009 4:[address] Brain Scan Noncontrast Indication: Head pain, hit in head by a metal door. Technique: Emergency CT brain scan was carried out in the standard reference planes. Initial interpretation was provided by [facility] and a preliminary report was sent. Findings: The fourth ventricle is normal in size, shape and position. The septum pellucidum and third ventricle are midline. The lateral ventricles appear normal. No definite areas of abnormal increased or decreased density are noted. Summary: Emergency CT brain scan - no intracerebral or extracerebral bleed, midline shift, or mass effect. Procedure Note Devante Arana MD - 05/19/2009 CT Brain Scan Noncontrast Indication: Head pain, hit in head by a metal door. Technique: Emergency CT brain scan was carried out in the standard reference planes. Initial interpretation was provided by [facility] and a preliminary report was sent. Findings: The fourth ventricle is normal in size, shape and position. The septum pellucidum and third ventricle are midline. The lateral ventricles appear normal. No definite areas of abnormal increased or decreased density are noted. Summary: Emergency CT brain scan - no intracerebral or extracerebral bleed, midline shift, or mass effect. Kaela Barros DO CT ORDERABLES Care Teams Windows System Admin Relationship Specialty Start Date End Date Kylah Harry MD [address] [place] [id number] PCP - General 06/06/18
--- OUTSIDE RECORDS SUMMARY | 2024-06-09 14:58 | XMS_ITS | Clinical Summary ---
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
--- OUTSIDE RECORDS SUMMARY | 2024-06-09 14:58 | XMS_ITS | Encounter Summary ---
Author Organization [facility] Address [address] [facility] [place] [address] Care Team Providers Care Multimedia Authoring Specialist Name Role Phone Finesse Noonan MD Primary Care Provider [phone] Kylah Harry MD Primary Care Provider [phone] Encounter Details Date Type Department Care Team (Late st Contact Info) Description 02/01/2016 Lab Requisition [facility] Alessandra - Lab Cytogenetics [address] [place] [address] Daniel Solis MD [address] [place] [address] [address] [place] [address] Chronic lymphocytic leukemia of B-cell type not [...] Associated Diagnosis Comments CYTOGENETICS CANCER PANEL Routine 02/01/2016 1:45 PM CDT Chronic lymphocytic leukemia of B-cell type not having achieved remission documented in this encounter Results * CYTOGENETICS CANCER PANEL (02/01/2016 1:45 PM CDT) Indication for Study CLL 6 6:51 AM CDT [facility] Results Cytogenetics Fluorescence In-Situ Hybridization (FISH): ??Analysis of 100 interphase bone marrow cells hybridized to triple labeled [id number]/13q34/CEP12 specific fluorescent labeled probes* directed onto 13q14/3q34/12cen showed the following results: nuc summer(YGZ67j2,W36W415u 0,XSIQ3j6)[15100],( HQZ64d7,R38A762i2,LA MP1x2)[22] 6 6:51 AM CDT [facility] Interpretation To rule out minimal residual disease of the previously identified clonal abnormality (see below), FISH was performed using specific probes* as listed in the result section. FISH was positive showing zero or 1 signal of 13q14 probe in 15 and 22% of cells, respectively. FISH results indicate the continued presence of the abnormal clone. Clinicopathological correlation is suggested 6 6:51 AM T [facility] Disclaimer *This test was developed, and its performance characteristics determined by [facility] as required by [...] by correlating pathology with cytogenetic findings. 6 6:51 AM CDT [facility] Historical Cytogenomic Report [id number] on 01/13/2016 Results ?? Fluorescence In-Situ Hybridization (FISH): ??Analysis of 100 to 200 interphase peripheral blood cells hybridized to each of dual labeled MYB/CEP6, triple labeled A56X718/13q34/CEP12, dual labeled p53/JOYCE, dual labeled dual fusion IGH/CCND1 specific fluorescent labeled probes* directed onto 6q23/CEP6, 13q14/3q34/12cen,17p 13/11q22 and 14q32/11q13 showed the following results nuc summer(CEP6,MYB)x2[200] ,(CCND1,IGH)x2[184/2 00],(JOYCE,p53)x2[200] ,(WVJ54h1,W50W363c6, QMCR4h9)[21/100],(CE P12x2,P74W402r3,LAMP 1x2)[55/100] Abnormal ?? . ?? Interpretation ?? FISH of CLL panel was positive for R62S542 showing one signal of Y03T270 in 55% and zero signals of P75O319 in 21% of cells. All other probes [...] is suggested. ?? at 1038 ?? . ?? Disclaimer ?? *This test was developed, and its performance characteristics determined by [facility] Cytogenetics Laboratory as required by CLIA [...] correlating pathology with cytogenetic findings. ?? . 6 6:51 AM CDT [facility] Client Information [facility] ??- ??[id number] [facility] LAB NUMBERS: [id number] ; [id number] 6 6:51 AM CDT [facility] Other BONE MARROW SPECIMEN / Unknown 02/01/2016 1:45 PM CDT 02/01/2016 3:08 PM CDT Daniel Solis MD LAB - PATHOLOGY/CY TOLOGY ORDERABLES [facility] [address] [place] [address] documented in this encounter Visit Diagnoses Diagnosis Chronic lymphocytic leukemia of B-cell type not having achieved remission (HCC) Chronic lymphoid leukemia, without mention of having achieved remission documented in this encounter Care Teams Multimedia Authoring Specialist Relationship Specialty Start Date End Date Finesse Noonan MD [address] [place] [phone] PCP - General 05/19/09 06/05/18 Kylah Harry MD [address] [place] [address] [place] [phone] PCP - General 06/06/18 documented as of this encounter
--- OUTSIDE RECORDS SUMMARY | 2024-06-09 14:58 | XMS_ITS | Clinical Summary ---
Author Organization [facility] Address [address] [place] [address] Care Team Providers Care [employer] Defense [employer] Senior Sergeant Name Role Phone Kylah Harry MD Primary Care Provider [phone] Source Comments [facility],non-owned Affiliates and Associated Physician Practices is amultiple site organization consisting of ambulatory clinics and hospital sitesin [place], [place], [place] and [place]. This disclosure is being madepursuant to the Care Everywhere program and may not contain all information available regarding this patient. Last updated 18.[facility] Allergies Active Allergy Reactions Criticality Noted Date [...] Problem Noted Date Diagnosed Date Trauma 05/19/2009 Family History Medical History Relation Name Comments Diabetes Father Diabetes Mother Other Mother Relation Name Status Comments Father Mother Social History Tobacco Use Types Packs/Day Years [...] Comments Blood Pressure 105/66 07/10/2018 1:31 PM LOGGING EQUIPMENT MECHANIC Pulse 76 07/10/2018 1:31 PM LOGGING EQUIPMENT MECHANIC Temperature 36.9 ??C (98.5 ??F) 07/10/2018 1:31 PM CS T Respiratory Rate 18 07/10/2018 1:31 PM LOGGING EQUIPMENT MECHANIC Oxygen Saturation 97% 07/10/2018 1:31 PM LOGGING EQUIPMENT MECHANIC Inhaled Oxygen Concentration - - Weight 60.3 kg (132 lb 14.4 oz) 07/10/2018 1:31 PM LOGGING EQUIPMENT MECHANIC Height 157.5 cm (5' 2 ) 07/10/2018 1:31 PM LOGGING EQUIPMENT MECHANIC Body Mass Index 24.31 07/10/2018 1:31 PM LOGGING EQUIPMENT MECHANIC Plan of Treatment Health Maintenance Due Date Last Done Comments PAP SMEAR 1989 DTAP/TDAP/TD VACCINES (1 - Tdap) 2008 HEPATITIS B VACCINE (1 of 3 - 19+ 3-dose series) 2008 PNEUMOCOCCAL VACCINE (1 of 2 - PCV) 2008 COVID-19 VACCINE ( - 2023-2 5 season) 2024 INFLUENZA VACCINE (#1) 2024 DEPRESSION SCREENING 05/14/2024 ZOSTER VACCINE (1 of 2) 2039 HEPATITIS C SCREENING Completed 01/11/2016 HIV SCREENING Completed 01/11/2016 HIB VACCINE Aged Out No longer eligi ble based on patient's age to complete this topic HPV VACCINE Aged Out No longer eligi ble based on patient's age to complete this topic MENINGOCOCCAL (Group B) VACCINE Aged Out No longer eligible based on patient's age to complete this topic MENINGOCOCCAL VACCINE Aged Out No radha sara eligible based on patient's age to complete this topic Procedures Procedure Name Priority Date/Time Associated Diagnosis Comments HEPATITIS C ANTIBODY STAT 01/11/2016 3:58 PM CDT HIV-1 HIV-2 ANTIGEN/ANTIBODY STAT 01/11/2016 3:58 PM CDT from Last 3 Months or Most Recently Relevant to Health Maintenance Results * HIV-1 HIV-2 ANTIGEN/ANTIBODY (01/11/2016 3:58 PM CDT) HIV Antigen/Antibod y 1 & 2 Non-reacti ve Non-react mark [facility] Comment: Neither HIV-1 p24 Antigen nor HIV-1/HIV-2 Antibodies are detected. ? Blood specimen (specimen) BLOOD SPECIMEN / Unknown 01/11/2016 3:58 PM CDT 01/11/2016 4:19 PM CDT Daniel Solis MD LAB - HEMATOLOGY O RDERABLES [address] [phone] * HEPATITIS C ANTIBODY (01/11/2016 3:58 PM CDT) Pathologist [facility] Hepatitis C [facility] Comment: Hepatitis C Antibody screen indicates [...] Solis MD LAB - CHEMISTRY OR DERABLES [address] [phone] from Last 3 Months or Most Recently Relevant to Health Maintenance Care Teams [employer] Senior Sergeant Relationship Specialty Start Date End Date Kylah Harry MD [address] [place] [address] PCP - General 06/06/18
[2024-06-09] MEDS: KETOROLAC 30 MG/ML VIAL (*BKC) IV PUSH (15:40)
[2024-06-09 15:46] LABS: Hematocrit 40.7 % (37.0-47.0); Hemoglobin 13.6 g/dL (12.0-15.0); Mean Corpuscular HGB Conc 33.4 g/dl (32-36); Mean Corpuscular Hemoglobin 31.9 pg (26-34); Mean Corpuscular Volume 95.3 fl (80-100); Mean Platelet Volume 11.1 fl (7.4-10.4); Platelet Count Result 292 k/mm3 (150-375); Red Blood Count 4.27 M/mm3 (4.2-5.4); Red Cell Distribution Width 13.6 % (11.5-14.5); White Blood Count 39.6 K/mm3 (4.5-10.0)
[2024-06-09 15:58] LABS: Prothrombin Time 13.3 Seconds (11.1-14.7)
[2024-06-09 15:59] LABS: Alanine Aminotransferase 17 U/L (6-35); Albumin Level 4.5 g/dL (3.5-5.1); Alkaline Phosphatase 45 U/L (38-126); Anion Gap 10 mmol/L (4-12); Aspartate Amino Transferase 26 U/L (14-36); Bilirubin,Total 1.1 mg/dL (0.2-1.3); Blood Urea Nitrogen 6 mg/dL (7-17); Calcium 9.1 mg/dL (8.4-10.2); Carbon Dioxide 23 mmol/L (22-30); Chloride 106 mmol/L (98-107); Estimated CRCL calculation 111 ml/min; Estimated Glomerular Filt Rate > 60; Glucose 93 mg/dL (65-110); Lipase 45 U/L (23-300); Partial Thromboplastin Time 24.9 Seconds (22.3-36.8); Potassium 4.1 mmol/L (3.4-5.0); Sodium 139 mmol/L (137-145)
[2024-06-09 16:10] LABS: Troponin I < 0.012 ng/mL (0.000-0.034)
[2024-06-09 16:19] LABS: Eosinophils Absolute Manual 0.39 K/mm3 (0.02-0.50); Eosinophils Percent Manual 1 % (0-4); Lymphocytes Absolute Manual 27.32 K/mm3 (1.1-4.5); Monocytes Absolute Manual 1.18 K/mm3 (0.1-0.90); Monocytes Percent Manual 3 % (3-9); Neutrophils Percent Manual 27 % (46-73); Total Cells Counted 100
[2024-06-09 16:20] LABS: Platelet Estimate Adequate (Adequate); Schistocytes None Seen
[2024-06-09 17:33] VITALS: BP 101/64; PULSE 65; RESP 20; O2SAT 100
[2024-06-09] MEDS: SODIUM CHLORIDE 0.9% IV 1,000 ML 999 ML IV CONT (17:40)
[2024-06-09 17:44] LABS: BEDSIDEPREGUCG Negative (Negative)
--- OUTSIDE RECORDS SUMMARY | 2024-06-09 19:16 | XMS_ITS | Continuity of Care Document ---
Author Organization [facility] Address [address] [place] [address] Phone Care Team Providers Care Site Reliability Engineer Name Role Phone Unavailable Unavailable Unavailable Advance Directives Directive Yes / No Effective Date File Name No Information Encounters Encounter Description Practice Location Reason(s) For Visit Diagnoses Date Provider Providers Copied on Encounter [facility], [address] [facility], [place], [place], [id number], [place] tel:[phone] [facility] No Information No Information Referring Provider: REFERRAL SELF. Family History Family Member Type Diagnosis Age At Onset No Information Payers Payer name Insurance type Covered green party ID Authoriza tiautumn(s) [facility] [id number] Social History Type Description Quantity Date Captured Comments Sex Female Smoking Status No Information Chief Complaint And Reason For Visit No Information History Of Present Illness Encounter Date Complaint History Of Prese nt Illness No Information Instructions Date Instruction Additional Infor mation No Information Assessments Type Assessment Date No Information
--- OUTSIDE RECORDS SUMMARY | 2024-06-09 19:16 | XMS_ITS | CONTINUITY OF CARE DOCUMENT ---
Author Name winter max Address Unknown Organization [facility] Address [id number] [place] [address] [address] [place] [address] Phone [phone] Care Team Providers Care Oracle Programmer Analyst Name Role Phone winter max Unavailable Unavailable INSURANCE PROVIDERS Payer name Policy type / Coverage type Page red alliance party ID [employer] Medicaid [id number]
--- OUTSIDE RECORDS SUMMARY | 2024-06-09 19:16 | XMS_ITS | Clinical Summary ---
Author Organization [facility] Address [address] [place] [address] Care Team Providers Care Cook Relief Name Role Phone Kylah Harry MD Primary Care Provider + Daniel Solis MD Unavailable [phone] Antwon Card DO Unavailable [phone] Allergies Active Allergy Reactions Criticality Noted Date [...] MDCK, Preservative Free, Antibiotic Free, Intramuscular 02/16/2021 cookdinner (J&J) SARS-CoV-2 Vaccination 07/18/2020 Surgical History Surgery [...] on file Legal Sex Female 10:13 AM COMPUTER PATTERNMAKER Gender Identity Female 07/05/2020 1:07 PM COMPUTER PATTERNMAKER Sexual Orientation Not on file Occupation Industry [...] patient's age to complete this topic Insurance [facility] [id number] [place] [address] Care Teams Cook Relief Relationship Specialty Start Date End Date Kylah Harry MD PCP - General Family Medicine 10/29/17 Daniel Solis MD Referring Physician Internal Medicine 10/29/17 Antwon Card DO [address] [place] [address] [phone] Medical Oncologist/Cath Lab Radiological Technologist Hematology and Oncology 02/26/18
--- OUTSIDE RECORDS SUMMARY | 2024-06-09 19:17 | XMS_ITS | Continuity of Care Document ---
Author Organization [facility] Address [address] [place] [address] [address] [place] [address] Phone Care Team Providers Care Coil Connector Repairer Name Role Phone Pond OD, Daniel Unavailable Unavailable Advance Directives Directive Yes / No Effective Date File Name No Information Encounters Encounter Description Practice Location Reason(s) For Visit Diagnoses Date Provider Providers Copied on Encounter [facility], [address] [place] [address] [address], [place], [place], [id number], [place] tel:[phone] [facility] [place] No Information Jul- 7-200 4 Pond [facility] [place] [address] [place] [address], [place], [place], [facility], [place]. tel:[phone] Referring Provider: Cristina Carr OD [facility] [address], [place], [place], [facility]. tel:[phone] Family History Family Member Type Diagnosis Age At Onset No Information Payers Payer name Insurance type Covered libertarian ID Authoriza tion(s) Medicaid [facility] [id number] Social History Type Description Quantity Date Captured [...]
--- OUTSIDE RECORDS SUMMARY | 2024-06-09 19:18 | XMS_ITS | Referral Summary ---
Author Organization [facility] Address [address] [address] Care Team Providers Care Licensed Funeral Director Name Role Phone Kylah Harry MD Primary Care Provider [phone] Source Comments [facility],non-owned Affiliates and Associated Physician Practices is amultiple site organization consisting of ambulatory clinics and hospital sitesin [place], [place], [place] and [place]. This disclosure is being madepursuant to the Care Everywhere program and may not contain all information available regarding this patient. Last updated 18.[facility] Allergies Active Allergy Reactions Criticality Noted Date [...] Comments Blood Pressure 105/66 07/10/2018 1:31 PM CARE PROCESS MANAGER Pulse 76 07/10/2018 1:31 PM CARE PROCESS MANAGER Temperature 36.9 ??C (98.5 ??F) 07/10/2018 1:31 PM CS T Respiratory Rate 18 07/10/2018 1:31 PM CARE PROCESS MANAGER Oxygen Saturation 97% 07/10/2018 1:31 PM CARE PROCESS MANAGER Inhaled Oxygen Concentration - - Weight 60.3 kg (132 lb 14.4 oz) 07/10/2018 1:31 PM CARE PROCESS MANAGER Height 157.5 cm (5' 2 ) 07/10/2018 1:31 PM CARE PROCESS MANAGER Body Mass Index 24.31 07/10/2018 1:31 PM CARE PROCESS MANAGER Plan of Treatment Not on file Procedures [...] Solis MD LAB - HEMATOLOGY O RDERABLES [address] [phone] * HEPATITIS C ANTIBODY (01/11/2016 3:58 PM CDT) Hepatitis C Antibody Non-react mark Non-reac tive [facility] Comment: Hepatitis C Antibody screen indicates no [...] Solis MD LAB - CHEMISTRY OR DERABLES [address] [phone] from Last 3 Months or Most Recently Relevant to Health Maintenance Care Teams Licensed Funeral Director Relationship Specialty Start Date End Date Kylah Harry MD [address] [place] [address] PCP - General 06/06/18
--- OUTSIDE RECORDS SUMMARY | 2024-06-09 19:18 | XMS_ITS | Encounter Summary ---
Author Organization [facility] Address [address] [place] [address] Care Team Providers Care Director Sterile Processing Name Role Phone Finesse Noonan MD Primary Care Provider [phone] Kylah Harry MD Primary Care Provider [phone] Encounter Details Date Type Department Care Team (Late st Contact Info) Description 01/12/2016 [facility] Cyt[facility] [address] [place] [address] Daniel Solis MD [address] [place] [address] [address] [place] [address] Chronic lymphocytic leukemia of B-cell type not [...] CANCER PANEL (01/11/2016 3:38 PM CDT) Pathologist [facility] Indication for Study CLL CLL FISH panel requested by physician 6 10:38 AM T [facility] CYTOGENOMIC [facility] Results Cytogenetics Fluorescence In-Situ Hybridization (FISH): ??Analysis of 100 to 200 interphase peripheral blood cells hybridized to each of dual labeled MYB/CEP6, triple labeled [id number]/13q34/CEP12, dual labeled p53/JOYCE, dual labeled dual fusion IGH/CCND1 specific fluorescent labeled probes* directed onto 6q23/CEP6, 13q14/3q34/12cen,17p 13/11q22 and 14q32/11q13 showed the following results nuc summer(CEP6,MYB)x2[200] ,(CCND1,IGH)x2[184/2 00],(JOYCE,p53)x2[200] ,(ABN12x1,S14C114m2, LTGF6v5)[21/100],(CE P12x2,B54R374d9,LAMP 1x2)[55/100] Abnormal 6 10:38 AM T [facility] Interpretation FISH of CLL panel was positive for Q37N357 showing one signal of [id number] in 55% and zero signals of Y99Z500 in 21% of cells. All other probes [...] Clinicopathological correlation is suggested. 6 10:38 AM [facility] CYTOGENOMIC LAB Disclaimer *This test was developed, and its performance characteristics determined by [facility] Molecular Cytogenetics Laboratory as required by [...] with cytogenetic findings. 6 10:38 AM CDT [facility] Client Information [facility] ??- ??[id number] FISH CLL 6 10:38 AM CDT [facility] Other BLOOD SPECIMEN / Unknown 01/11/2016 3:38 PM CDT 01/12/2016 9:43 AM CDT Daniel Solis MD LAB - PATHOLOGY/CY TOLOGY ORDERABLES [facility] [address] [place] [address] documented in this encounter Visit Diagnoses Diagnosis Chronic lymphocytic leukemia of B-cell type not having achieved remission (HCC) Chronic lymphoid leukemia, without mention of having achieved remission documented in this encounter Care Teams Director Sterile Processing Relationship Specialty Start Date End Date Finesse Noonan MD [address] [place] [address] PCP - General 05/19/09 06/05/18 Kylah Harry MD [address] [place] [address] [place] [address] PCP - General 06/06/18 documented as of this encounter
--- OUTSIDE RECORDS SUMMARY | 2024-06-09 19:18 | XMS_ITS | Clinical Summary ---
Author Organization [facility] [employer] Address [address] [place] [address] Care Team Providers Care Pv Installer Tech Name Role Phone Kylah Harry MD Primary Care Provider [phone] Source Comments [facility],non-owned Affiliates and Associated Physician Practices is amultiple site organization consisting of ambulatory clinics and hospital sitesin [place], [place], [place] and [place]. This disclosure is being madepursuant to the Care Everywhere program and may not contain all information available regarding this patient. Last updated 18.[facility] [employer] Allergies Active Allergy Reactions Criticality Noted Date [...] Comments Blood Pressure 105/66 07/10/2018 1:31 PM CARETAKER RESORT Pulse 76 07/10/2018 1:31 PM CARETAKER RESORT Temperature 36.9 ??C (98.5 ??F) 07/10/2018 1:31 PM CS T Respiratory Rate 18 07/10/2018 1:31 PM CARETAKER RESORT Oxygen Saturation 97% 07/10/2018 1:31 PM CARETAKER RESORT Inhaled Oxygen Concentration - - Weight 60.3 kg (132 lb 14.4 oz) 07/10/2018 1:31 PM CARETAKER RESORT Height 157.5 cm (5' 2 ) 07/10/2018 1:31 PM CARETAKER RESORT Body Mass Index 24.31 07/10/2018 1:31 PM CARETAKER RESORT Plan of Treatment Health Maintenance Due Date [...] 1 & 2 Non-reacti ve Non-react mark [facility] Comment: Neither HIV-1 p24 Antigen nor HIV-1/HIV-2 Antibodies are detected. ? Blood specimen (specimen) BLOOD SPECIMEN / Unknown 01/11/2016 3:58 PM CDT 01/11/2016 4:19 PM CDT Daniel Solis MD LAB - HEMATOLOGY O RDERABLES [address] [phone] * HEPATITIS C ANTIBODY (01/11/2016 3:58 PM CDT) Pathologist [facility] Comment: Hepatitis C Antibody screen indicates [...] Solis MD LAB - CHEMISTRY OR DERABLES [address] [phone] from Last 3 Months or Most Recently Relevant to Health Maintenance Care Teams Pv Installer Tech Relationship Specialty Start Date End Date Kylah Harry MD [address] [place] [address] PCP - General 06/06/18
--- OUTSIDE RECORDS SUMMARY | 2024-06-09 19:18 | XMS_ITS | Referral Summary ---
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 Gender Identity Female 07/05/2020 1:07 PM TREE FELLER OPERATOR Sexual Orientation Not on file Occupation Industry [...] Plan of Treatment Not on file Insurance [facility] Care Teams Catalytic Case Operator Relationship Specialty Start Date End Date Kylah Harry MD PCP - General Family Medicine 10/29/17 Daniel Solis MD Referring Physician Internal Medicine 10/29/17 Antwno Card DO [address] [place] [address] Medical Oncologist/Quality Engineering Manager Hematology and Oncology 02/26/18
--- OUTSIDE RECORDS SUMMARY | 2024-06-09 19:18 | XMS_ITS | Patient Health Summary ---
Author Organization [facility] Address [address] [place] [address] Care Team Providers Care Ductfixing Plumber Name Role Phone Kylah Harry MD Primary Care Provider [phone] Note from [facility],non-owned Affiliates and Associated Physician Practices is amultiple site organization consisting of ambulatory clinics and hospital sitesin [place], [place], [place] and [place]. This disclosure is being madepursuant to the Care Everywhere program and may not contain all information available regarding this patient. Last updated 18.[facility] Allergies * Adhesive Sensitivity(Rash) Medications * Be [...] Comments Blood Pressure 105/66 07/10/2018 1:31 PM INFORMATICIST Pulse 76 07/10/2018 1:31 PM INFORMATICIST Temperature 36.9 ??C (98.5 ??F) 07/10/2018 1:31 PM CS T Respiratory Rate 18 07/10/2018 1:31 PM INFORMATICIST Oxygen Saturation 97% 07/10/2018 1:31 PM INFORMATICIST Inhaled Oxygen Concentration - - Weight 60.3 kg (132 lb 14.4 oz) 07/10/2018 1:31 PM INFORMATICIST Height 157.5 cm (5' 2 ) 07/10/2018 1:31 PM INFORMATICIST Body Mass Index 24.31 07/10/2018 1:31 PM INFORMATICIST Procedures * PET CT WHOLE BODY(Performed 06/26/2018) [...] PET CT WHOLE BODY (06/26/2018 9:43 AM INFORMATICIST) Only the most recent of2 resultswithin the time period is included. Anatomical Region Laterality Modality Positron Emissio n Tomography (PET) 06/26/2018 11:4 9 AM INFORMATICIST Impressions 06/26/2018 3:08 PM INFORMATICIST IMPRESSION: No lymphadenopathy or PET/CT evidence of hypermetabolic malignancy. Report dictated by Parvez Noland MD (residential pest control technician). This report was approved ??by Parvez Noland ?? on 06/26/2018 2:05 PM . I, Dr. EDGAR FELIPE M.D. have personally reviewed and interpreted this examination/study. This report was electronically signed by EDGAR FELIPE M.D. ??on 06/26/2018 3:08 PM . Narrative 06/26/2018 3:08 PM INFORMATICIST PROCEDURE: PET/CT Study REFERRING PROVIDER: ORA SOLIS [...] seen within the osseous structures. Procedure Note Edagr Felipe MD - 06/26/2018 PROCEDURE: PET/CT Study REFERRING PROVIDER: ORA SOLIS HISTORY: Chronic lymphocytic leukemia, also history of reported cervical cancer in 2013 status post partial removal of the cervix, evaluate for subsequent treatment strategy. TECHNIQUE: 9.1 mCi of F-18 FDG by IV in the left antecubital fossa.PET/CT image acquisition from top of the head to the feet after [id number] minutes post-injection with the CT being low-dose, [...] malignancy. Report dictated by Parvez Noland MD (residential pest control technician). This report was approved by Parvez Noland on 06/26/2018 2:05 PM . I, Dr. EDGAR FELIPE M.D. have personally reviewed and interpreted this examination/study. This report was electronically signed by EDGAR FELIPE M.D. on06/26/2018 3:08 PM . Ora Solis MD NM ORDERABLES * GLUCOSE SCREEN - POCT (IP) [facility] (06/26/2018 8:17 AM INFORMATICIST) Glucose WB/POC 98 70 - 115 mg/dL [facility] POCT TESTING Blood BLOOD SPECIMEN / Unknown 06/26/2018 8:17 AM INFORMATICIST Ora Solis MD LAB - POINT OF CAR E ORDERABLES [facility] POCT TESTING [address] [phone] * CYTOGENETICS CANCER PANEL (06/26/2018 8:11 AM INFORMATICIST) Only the most recent of4 resultswithin the time period is included. Pathologist [facility] Indication for Study CLL (Pretreatment) 9 7:30 AM [facility] CYTOGENOMIC LAB Results Cytogenetics Fluorescence In-Situ Hybridization (FISH): ??Analysis of 100 interphase bone marrow cells hybridized to triple labeled W84R118/13q34/CEP12 specific fluorescent labeled probes* directed onto 13q14/3q34/12cen showed the following results: nuc summer(DRR31m1,L39G958r 1,DGNU4p7)[60/100]/C EP12x2,E84R734i0,AL P1x2)[35/100]Abnorma l 9 7:30 AM [facility] CYTOGENOMIC [facility] Interpretation To rule [...] Clinicopathological correlation is suggested 9 7:30 AM [facility] CYTOGENOMIC LAB Disclaimer *This test was developed, and its performance characteristics determined by [facility] Molecular Cytogenetics Laboratory as required by [...] pathology with cytogenetic findings. 9 7:30 AM [facility] CYTOGENOMIC LAB Historical Cytogenomic Report [id number] on 02/09/2016 Results Cytogenetics ?? Fluorescence In-Situ Hybridization (FISH): ??Analysis of 100 interphase bone marrow cells hybridized to triple labeled Y85E974/13q34/CEP12 specific fluorescent labeled probes* directed onto 13q14/3q34/12cen showed the following results: nuc summer(DTB65s6,L05X202a 0,CCWW9t4)[15/100],( MLO79a2,O83D944l7,LA MP1x2)[22/100] ?? . ?? Interpretation ?? To [...] abnormal clone. Clinicopathological correlation is suggested ?? Electronically signed by Katelynn Romo, PhD [facility] on 02/09/2016 at 0651 ?? . ?? Disclaimer ?? *This test was developed, and its performance characteristics determined by [facility] Molecular Cytogenetics Laboratory as required by [...] ?? . ?? Historical Cytogenomic Report ?? [id number] on 01/13/2016 Results ?? Fluorescence In-Situ Hybridization (FISH): ??Analysis of 100 to 200 interphase peripheral blood cells hybridized to each of dual labeled MYB/CEP6, triple labeled U75E870/13q34/CEP12, dual labeled p53/JOYCE, dual labeled dual fusion IGH/CCND1 specific fluorescent labeled probes* directed onto 6q23/CEP6, 13q14/3q34/12cen,17p 13/11q22 and 14q32/11q13 showed the following results nuc summer(CEP6,MYB)x2[200] ,(CCND1,IGH)x2[184/2 00],(JOYCE,p53)x2[200] ,(IVQ43f0,A08G447u7, JCJR4a7)[21/100],(CE P12x2,K79Q098o6,LAMP 1x2)[55/100] Abnormal ?? . ?? Interpretation ?? FISH of CLL panel was positive for H43E482 showing one signal of W02K808 in 55% and zero signals of P86C276 in 21% of cells. All other probes [...] at 1038 ?? . 9 7:30 AM [facility] CYTOGENOMIC LAB Client Information [facility] - [phone] 9 7:30 AM [facility] CYTOGENOMIC LAB Embedded Images 9 7:30 AM [facility] CYTOGENOMIC LAB Other BLOOD SPECIMEN / Unknown Collection / Unknown 06/26/2018 8:11 AM INFORMATICIST 06/26/2018 9:13 AM INFORMATICIST Ora Solis MD LAB - PATHOLOGY/CY TOLOGY ORDERABLES [facility]LEC[facility] CYTOGENOMIC LAB [address] [place] [address] * LAB MISC TEST (06/12/2018 3:29 PM INFORMATICIST) Only the most recent of4 resultswithin the time period is included. Blood BLOOD SPECIMEN / Unknown Lab Venipuncture / Unknown 06/12/2018 3:29 PM INFORMATICIST 06/12/2018 3:49 PM INFORMATICIST Ora Solis MD LAB SEND OUT [facility] REF LAB NON INTERF [address] [place] [address] * (ABNORMAL) DIFFERENTIAL MANUAL (06/12/2018 3:29 PM INFORMATICIST) Only the most recent of4 resultswithin the time period is included. WBC (corrected for NRBC) 45.3 10? 3 /uL 06/12/2018 4:10 PM [facility] Total Cell Count 100 06/12/2018 4:10 PM [facility] Neutrophils Absolute Manual 9.06(H) 1.60 - 7.00 10? 3 /uL 06/12/2018 4:10 PM [facility] Comment:(BANDS+SEGS) x WBC = NEUT # (ANC) Lymphocyte Absolute Manual 29.45(H) 0.80 - 2.90 10? 3 /uL 06/12/2018 4:10 PM [facility] Monocytes Absolute Manual 3.62(H) 0.14 - 0.66 10? 3 /uL 06/12/2018 4:10 PM [facility] Neutrophil % Manual 20(L) 30 - 60 % 06/12/2018 4:10 PM [facility] Lymphocyte % Manual 65(H) 20 - 45 % 06/12/2018 4:10 PM [facility] Monocytes % Manual 8 2 - 10 % 06/12/2018 4:10 PM [facility] Atypical Lymphocyte % Manual 7(H) 0 % 06/12/2018 4:10 PM [facility] Platelet Estimate Adequate Adequate 06/12/2018 4:10 PM [facility] RBC Morphology Normal 06/12/2018 4:10 PM [facility] Blood BLOOD SPECIMEN / Unknown Lab Venipuncture / Unknown 06/12/2018 3:29 PM INFORMATICIST 06/12/2018 3:49 PM INFORMATICIST Ora Solis MD LAB - HEMATOLOGY O RDERABLES [facility] [address] [phone] * (ABNORMAL) CBC WITH DIFFERENTIAL (06/12/2018 3:29 PM INFORMATICIST) Only the most recent of8 resultswithin the time period is included. WBC 45.3(H) 3.5 - 10.5 10? 3 /uL 06/12/2018 3:56 PM [facility] Comment:Checked by periphera l smear. RBC 4.50 3.90 - 5.00 10? 6 /uL 06/12/2018 3:56 PM [facility] Hemoglobin 13.7 12.0 - 15.5 g/dL 06/12/2018 3:56 PM [facility] Hematocrit 42.0 35.0 - 45.0 % 06/12/2018 3:56 PM [facility] MCV 93.3 81.0 - 97.0 fL 06/12/2018 3:56 PM [facility] MCH 30.4 28.0 - 34.0 pg 06/12/2018 3:56 PM [facility] MCHC 32.6 32.0 - 36.0 g/dL 06/12/2018 3:56 PM [facility] Platelet Count 328 150 - 400 10? 3 /uL 06/12/2018 3:56 PM [facility] RDW-SD 45.1 36.0 - 50.0 fL 06/12/2018 3:56 PM [facility] RDW-CV 13.2 11.2 - 14.8 % 06/12/2018 3:56 PM [facility] MPV 10.9 9.3 - 12.8 fL 06/12/2018 3:56 PM [facility] nRBC Absolute 0.07(H) 0 10? 3 /uL 06/12/2018 3:56 PM INFORMATICIST [facility] nRBC Auto 0.2(H) 0 /100 WBC 06/12/2018 3:56 PM INFORMATICIST [facility] Blood BLOOD SPECIMEN / Unknown Lab Venipuncture / Unknown 06/12/2018 3:29 PM INFORMATICIST 06/12/2018 3:49 PM INFORMATICIST Ora Solis MD LAB - HEMATOLOGY O RDERABLES [facility] [address] [phone] * (ABNORMAL) COMPREHENSIVE METABOLIC PANEL (03/28/2016 2:37 PM INFORMATICIST) Only the most recent of4 resultswithin the time period is included. BUN 10 7 - 26 mg/dL [facility] Creatinine 0.7 0.6 - 1.2 mg/dL [facility] Sodium 138 136 - 145 mmol/L [facility] Potassium 3.8 3.5 - 4.5 mmol/L [facility] Chloride 105 98 - 107 mmol/L [facility] CO2 19(L) 22 - 29 mmol/L [facility] Glucose 125(H) 70 - 115 mg/dL [facility] Calcium 9.3 8.4 - 10.2 mg/dL [facility] Protein Total 7.3 6.0 - 8.3 g/dL [facility] Albumin 4.1 3.4 - 5.0 g/dL [facility] Bilirubin Total 1.1 0.2 - 1.2 mg/dL [facility] Alkaline Phosphatase 57 40 - 150 Units/L [facility] ALT 14 0 - 55 Units/L [facility] AST 13 5 - 34 Units/L [facility] Anion Gap 18 8 - 18 [facility] BUN/Creatinine Ratio 14 7 - 23 [facility] Osmolality Calculated 287 270 - 300 mOsm/kg [facility] Albumin/Globulin Ratio 1.3 1.1 - 2.3 [facility] eGFR >60 >60 mL/min/1.7 3 m2 [facility] Blood specimen (specimen) BLOOD SPECIMEN / Unknown 03/28/2016 2:37 PM INFORMATICIST 03/28/2016 3:05 PM INFORMATICIST Ora Solis MD LAB - CHEMISTRY OR DERABLES [facility] [address] [phone] * PATHOLOGY TISSUE (02/29/2016 1:10 PM CDT) Only the most recent of2 resultswithin the time period is included. Pathologist [facility] Surgical Pathology Tissue ACCESSION No: [id number] PRE-OP DIAGNOSIS: ?? Abnormal PET scan with [...] were determined by the Histopathology Laboratory of [facility].?? Some of these tests were developed by [...] by Cecilia Interiano MD. Electronically signed 03/01/2016 [facility] PATHOLOGY LAB ([facility]) Other (qualifier value) 02/29/2016 1:10 PM CDT 02/29/2016 1:38 PM CDT Narrative [facility] PATHOLOGY LAB ([facility]) - 03/01/2016 1:59 PM CDT [...] - PATHOLOGY/CYTO LOGY ORDERABLES Performing Organization Address City/[facility]/ZIP Co de Phone Number [facility] PATHOLOGY LAB ([facility]) * HCG URINE QUALITATIVE - POCT (IP) [facility] (02/29/2016 11:24 AM CDT) NEGATIVE [facility] ([facility]) Comment:Combination Operator: RISA NGUYEN 02/29/2016 11:2 4 AM CDT Bora Huntley MD LAB - POINT OF CARE ORDERABLES Performing Organization Address [facility] Co de Phone Number [facility] ([facility]) * (ABNORMAL) PORPHYRINS URINE QUANT RANDOM (02/22/2016 4:49 PM CDT) Uroporphyrin 16 0 - 20 ug/L [facility] ([facility]) Heptacarboxyl (7-CP) 5(H) 0 - 2 ug/L [facility] (BEAKER) Hexacarboxyl (6-CP) <1 0 - 1 ug/L [facility] (BEAKER) Pentacarboxyl (5-CP) 2 0 - 2 ug/L [facility] (BEAKER) Coproporphyrin I 40(H) 0 - 15 ug/L [facility] (BEAKER) Coproporphyrin III 99(H) 0 - 49 ug/L [facility] (BEAKER) Urine specimen (specimen) URINE SPECIMEN OBTAINED BY CLEAN CATCH PROCEDURE / Unknown 02/22/2016 4:49 PM CDT 02/22/2016 5:18 PM CDT Narrative [facility] (BEAKER) - 02/28/2016 1:09 PM CDT Performed at: ??01 - [address] ??[id number] Volunteer Assistant: Saleem Barrera MD, Phone: ??[phone] Meri Ad Fuller PATTERNMAKER ALL AROUND-HOOF TRIMMER LAB - URINE CHEMISTRY ORDERABLES [facility] (BEAKER) * CYTOMEGALOVIRUS DNA RT-PCR QUANT (02/22/2016 4:49 PM CDT) [facility] Cytomegalovirus DNA Quantitative PCR Accession No: [id number] Specimen: Plasma Reference: [id number] Test: Cytomegalovirus Detection (Quantitative) RESULT Not Detected [...] determined by the DNA Diagnostic Laboratory at [facility]. It has not been cleared or approved [...] complexity clinical laboratory testing. Test performed at [facility], [address] [place] [address] ??[id number] This case has been personally reviewed and interpreted by the attending (teaching) pathologist. Final Diagnosis performed by Osmar Quinn PHD. Electronically signed 02/23/2016 [facility] PATHOLOGY LAB ([facility]) Blood specimen (specimen) BLOOD SPECIMEN / Unknown 02/22/2016 4:49 PM CDT 02/22/2016 5:09 PM CDT Meri Fuller PATTERNMAKER ALL AROUND-HOOF TRIMMER LAB - [facility] IOLOGY ORDERABLES [facility] PATHOLOGY LAB ([facility]) * COMPLEMENT C1 ESTERASE INHIBITOR FUNCT ACTIVITY (02/22/2016 4:49 PM CDT) C1 Esterase Inhibitor Functional 112 %mean normal [facility] ([facility]) Comment: ?Abnormal ? <41 ?Equivocal ??41 - 67 ?Normal ? >67 Blood specimen (specimen) BLOOD SPECIMEN / Unknown 02/22/2016 4:49 PM CDT 02/22/2016 5:09 PM CDT Narrative [facility]) - 02/25/2016 3:17 PM CDT Performed at: ??01 - [address] ??[id number] Volunteer Assistant: Saleem Barrera MD, Phone: ??[phone] Meri Fuller PATTERNMAKER ALL AROUND-HOOF TRIMMER LAB - CHEMIS TRY ORDERABLES Performing Organization Address City/State/[facility] Co de Phone Number [facility]) * TISSUE TRANSGLUTAMINASE AB IGA (02/22/2016 4:49 PM CDT) TTG Antibody IgA <2 0 - 3 U/mL [facility]) Comment: ?Negative ?0 - ??3 ?Weak Positive ?? 4 - 10 ?Positive ? >10 Tissue Transglutaminase (tTG) has been identified as the endomysial antigen. ??Studies have demonstr- ated that endomysial IgA antibodies have over 99% specificity for gluten sensitive enteropathy. Blood specimen (specimen) BLOOD SPECIMEN / Unknown 02/22/2016 4:49 PM CDT 02/22/2016 5:09 PM CDT Narrative [facility]) - 02/24/2016 3:19 PM CDT Performed at: [facility] - [facility] [address] [place], [place] ??[id number] Volunteer Assistant: Rlaeigh Stout PhD, Phone: ??[phone] Meri Duong Jonny PATTERNMAKER ALL AROUND-HOOF TRIMMER LAB - [place] GY ORDERABLES Performing Organization Address City/[facility]/ZIP Co de Phone Number [facility] * C1Q BINDING ASSAY (02/22/2016 4:49 PM CDT) Immune Complexes C1q Binding 1.9 ug Eq/mL [facility] ([facility]) Comment: ? Negative ?< 4.4 ? Equivocal ??4.4 - 10.7 ? Positive ?>10.7 Blood specimen (specimen) BLOOD SPECIMEN / Unknown 02/22/2016 4:49 PM CDT 02/22/2016 5:08 PM CDT Narrative [facility] ([place]) - 02/29/2016 3:13 PM CDT Performed at: ??01 - [address] ??[id number] Volunteer Assistant: Saleem Barrera MD, Phone: ??[phone] Meri Fuller PATTERNMAKER ALL AROUND-HOOF TRIMMER LAB - CHEMIS TRY ORDERABLES [facility] ([facility]) * COMPLEMENT C1 ESTERASE INHIBITOR ANTIGEN (02/22/2016 4:49 PM CDT) C1 Esterase Inhibitor 32 21 - 39 mg/dL [facility] ([facility]) Blood specimen (specimen) BLOOD SPECIMEN / Unknown 02/22/2016 4:49 PM CDT 02/22/2016 5:09 PM CDT Narrative [facility] ([place]) - 02/25/2016 7:08 PM CDT Performed at: ??01 - [facility] [address] ??[id number] Volunteer Assistant: Saleem Barrera MD, Phone: ??[phone] Meri Fuller PATTERNMAKER ALL AROUND-HOOF TRIMMER LAB - CHEMIS TRY ORDERABLES [facility] ([place]) * TIFFANY-ABBOTT VIRUS PCR QUANT BLOOD/CSF (02/22/2016 4:49 PM CDT) Tiffany-Abbott Virus DNA Quantitative RT-PCR Accession No: [id number] Specimen: Peripheral Blood Reference: [id number] Test: Real Time PCR (TaqMan) Detection/Quantita tion [...] determined by the DNA Diagnostic Laboratory at [facility]. It has not been cleared or approved [...] complexity clinical laboratory testing. Test performed at [facility], [address] [place] [address] ??[phone] This case has been personally reviewed and interpreted by the attending (teaching) pathologist. Final Diagnosis performed by Vishal Khan PhD, [facility]. Electronically signed 02/29/2016 [facility] PATHOLOG[facility] ([facility]) Other (qualifier value) 02/22/2016 4:49 PM CDT 02/22/2016 5:09 PM CDT Meri Fuller APRN-HOOF TRIMMER LAB - [place] IOLOGY ORDERABLES [facility] PATHOLOGY LAB ([facility]) * (ABNORMAL) KAPPA/LAMBDA LITE CHAIN FREE PANEL (02/22/2016 4:49 PM CDT) Free [place] Light Chains Quantitative 20.51(H) 3.30 - 19.40 mg/L [facility] ([facility]) Free Lambda Light Chains Quantitative 20.45 5.71 - 26.30 mg/L [facility] ([facility]) [place]/Lambda Ratio 1.00 0.26 - 1.65 [facility] ([facility]) Blood specimen (specimen) BLOOD SPECIMEN / Unknown 02/22/2016 4:49 PM CDT 02/22/2016 5:09 PM CDT Narrative [facility] ([facility]) - 02/25/2016 5:11 PM CDT Performed at: ??01 - [facility] [address] ??[id number] Volunteer Assistant: Raleigh Stout PhD, Phone: ??[phone] Meri Fuller APRN-[facility] LAB - CHEMIS TRY ORDERABLES [facility] ([facility]) * COMPLEMENT C4 (02/22/2016 4:49 PM CDT) Complement C4 19 15 - 57 mg/dL [facility] Blood specimen (specimen) BLOOD SPECIMEN / Unknown 02/22/2016 4:49 PM CDT 02/22/2016 5:04 PM CDT Meri Fuller APRN-HOOF TRIMMER LAB - [place] G[facility] ORDERABLES [address] [phone] * IGA BLOOD (02/22/2016 4:49 PM CDT) IgA 181 87 - 534 mg/dL [facility] Blood specimen (specimen) BLOOD SPECIMEN / Unknown 02/22/2016 4:49 PM CDT 02/22/2016 5:04 PM CDT Meri Fuller PATTERNMAKER ALL AROUND-HOOF TRIMMER LAB - CHEMIS TRY ORDERABLES Performing Organization Address City/[facility]/ZIP Co de Phone Number [address] [phone] * COMPLEMENT C3 (02/22/2016 4:49 PM CDT) Complement C3 96 82 - 193 mg/dL [facility] Blood specimen (specimen) BLOOD SPECIMEN / Unknown 02/22/2016 4:49 PM CDT 02/22/2016 5:04 PM CDT Meri Fuller PATTERNMAKER ALL AROUND-HOOF TRIMMER LAB - CHEMIS TRY ORDERABLES Performing Organization Address City/[facility] Co de Phone Number [address] [phone] * HOLD SPECIMEN DNA (02/01/2016 1:45 PM CDT) [facility] DNA Hold Specimen Accession No: [id number] Specimen: Bone Marrow Reference: [id number] Test: HemOnc Isolation Only RESULT DNA was [...] determined by the DNA Diagnostic Laboratory at [facility]. It has not been cleared or approved [...] complexity clinical laboratory testing. Test performed at [facility], [address] [place] [address] ??[phone] [facility] PATHOLOG[facility] ([place]) Other (qualifier value) BONE MARROW SPECIMEN / Unknown 02/01/2016 1:45 PM CDT 02/01/2016 1:50 PM CDT Ora Solis MD LAB - [email or web address] ORDERABLES Performing Organization Address City/[facility]/ZIP Co de Phone Number [facility] PATHOLOG[facility] LAB ([place]) * CHROMOSOME ANALYSIS PANEL (02/01/2016 1:45 PM CDT) Chromosome Analysis FISH See scanned report. [facility] REF LAB NON INTERF Blood specimen (specimen) BONE MARROW SPECIMEN / Unknown 02/01/2016 1:45 PM CDT 02/01/2016 1:50 PM CDT Ora Solis MD LAB - [email or web address] ORDERABLES Performing Organization Address [facility]/ZIP Co de Phone Number [facility] REF LAB NON INTERF * FLOW CYTOMETRY PANEL (02/01/2016 1:45 PM CDT) Only the most recent of2 resultswithin the time period is included. Flow Cytometry Results Accession No: [id number] Specimen: Bone Marrow Reference: [id number] Reason for test: B-Cell Lymphoma Markers: 16 DIAGNOSIS: BONE MARROW, FLOW CYTOMETRIC IMMUNOPHENOTYPIC ANALYSIS: - ? CD5-POSITIVE MATURE B-CELL LYMPHOMA - ? SEE DESCRIPTION Flow Cytometry Results: Differential ?Result ?Comment FLOW CELL COUNT/uL ?[id number] %VIABILITY * ? 94 %LYMPHOCYTES ? 55 [...] CD56 ? 1 ? HLA-DR ? 92 ?[place]le+CD19+ ? 87 ? Lambda+CD19+ ? 0 ? [...] ?0-1 ? IgD ? 3-15 CD16 ?0-23 ?[place]le ? 3-12 CD19 ?8-24 ?Lambda ?3-7 CD20 [...] CD16 ?0-34 ?IgD ? 0-20 CD19 ?0-48 ?[place] ? 0-6 CD20 ?0-10 ?Lambda ?0-7 CD23 ?0-13 ?HLA-DR ?67-100 TdT ? 0 * The established laboratory minimum viability is 70%. Values below this minimum may result in the failure to find an abnormal population of cells. Test performed at [facility], [address] ??[id number] This test was developed and its performance [...] the flow cytometry specimen prepared in the [facility] Department of Pathology is reviewed for quality improvement consultant purposes. In summary, the immunophenotypic findings reveal [...] by Xenia Ramirez MD. Electronically signed 02/02/2016 [facility] ([place]) Other (qualifier value) BONE MARROW SPECIMEN / Unknown 02/01/2016 1:45 PM CDT 02/01/2016 1:50 PM CDT Narrative [facility] ([place]) - 02/02/2016 10:45 PM CDT Neoplastic:->Yes Reason for Exam->cll Ora Solis MD LAB - HEMATOLOGY O RDERABLES [facility] PATHOLOG[facility] ([facility]) * ACTH 60 MINUTES (02/01/2016 12:23 PM CDT) Cortisol 60 Min 24.1 >=20.0 mcg/dL [facility] Blood specimen (specimen) BLOOD SPECIMEN / Unknown 02/01/2016 12:23 PM CDT 02/01/2016 12:39 PM CDT Ora Solis MD LAB - CHEMISTRY OR DERABLES Performing Organization Address City/[facility] Co de Phone Number [address] [phone] * ACTH 30 MINUTES (02/01/2016 11:53 AM CDT) Cortisol 30 Min 20.0 >=20.0 mcg/dL [facility] Blood specimen (specimen) BLOOD SPECIMEN / Unknown 02/01/2016 11:53 AM CDT 02/01/2016 12:03 PM CDT Ora Solis MD LAB - CHEMISTRY OR DERABLES Performing Organization Address [facility] Co de Phone Number [address] [phone] * ACTH CORTISOL BASELINE (02/01/2016 9:20 AM CDT) Cortisol Baseline 8.1 No Reference Range Established mcg/dL [facility] Blood specimen (specimen) BLOOD SPECIMEN / Unknown 02/01/2016 9:20 AM CDT 02/01/2016 10:32 AM CDT Ora Solis MD LAB - CHEMISTRY OR DERABLES Performing Organization Address [facility] Co de Phone Number [address] [phone] * IGVH MUTATION ANALYSIS (02/01/2016 9:20 AM CDT) Interpretation Comment: MERVAT PAIZ ([facility]) Comment:IgVH Somatic Hypermu tation was detected. Indication for Study Comment[facility] Comment:Not given Specimen Type Comment: [facility] NEDRA ENRIQUEZ ([employer]) Comment:Peripheral Blood Comment Comment: [facility] OSCARED Zapien ([employer]) Comment: IgVH Somatic Hypermutation Analysis revealed a [...] predict outcome in CLL. Detection Parameters VH1-7 [facility] ([employer]) Result Comment: [facility]apien ([employer]) Comment:Mutated, 6.8% Electronically Signed by Comment: [facility] ([employer]) Comment: Juanjose Acevedo, Ph.D., DEBBIE on 02/09/2016 at [employer]. Juanjose Acevedo, Ph.D., DEBBIE DABMG, DABCC, DLMcm, M(ASCP)cm, MB(ASCP)cm Methodology Comment [facility] ([employer]) Comment: The Immunoglobulin Heavy Chain Gene Variable [...] Immunoglobulin database at http://www.ncbl.nlm.gov/lgblast. Intended Use Comment [facility] ([employer]) Comment: The IgVH gene mutation status is one of the discriminators of clinical outcome of patients with Chronic Lymphocytic Leukemia (CLL). The results of this analysis are to be interpreted in the context of flow cytometry, hematopathological findings and other clinical data. No therapeutic action should be taken solely based upon these results. Reference Comment [facility] KEISHA Zapien ([facility]) Comment: 1. ??A. Jackie et al. (2002) VH mutation status, CD38 expression ?level, genomic aberrations, and survival in chronic lymphocytic ?leukemia. Blood 100(4):3432-9189. 2. ??F. Jacky et al. (1998) Chronic Lymphocytic Leukemia B Cells ?Express Restricted Sets of Mutated and Unmutated Antigen ?Receptors. J Clin Invest 102 (8):7433-4102. 3. ??Tayla Pedro et al. (1999) Unmutated IgVH genes are associated ?with a more aggressive form of chronic lymphocytic leukemia. Blood ?94(6):1024-7654. 4. ??F. Ebony et al. (1998) The complete nucleotide sequence of the ?human immunoglobulin heavy chain variable region locus. J. Exp Med ?188(11):8902-1330. Disclaimer Comment [facility] ([place]) Comment: Results of this test are for investigational purposes only. The performance characteristics of this assay have been determined by [facility]. The result should not be used as a diagnostic procedure without confirmation of the diagnosis by another medically established diagnostic product or procedure. Blood specimen (specimen) BLOOD SPECIMEN / Unknown 02/01/2016 9:20 AM CDT 02/01/2016 10:32 AM CDT Narrative [facility] RENÉEANGEL ([place]) - 02/11/2016 10:12 AM CDT Performed at: ??01 - [facility] [address], [place], [place] ??[id number] Volunteer Assistant: Nhan Harman Jr, MD, Phone: ??[phone] Ora Solis MD LAB - CHEMISTRY OR DERABLES [facility] (BEAKER) * (ABNORMAL) LDH BLOOD (02/01/2016 9:20 AM CDT) Only the most recent of2 resultswithin the time period is included. Pathologist [facility] LDH Total 112(L) 125 - 243 Units/L [facility] Blood specimen (specimen) BLOOD SPECIMEN / Unknown 02/01/2016 9:20 AM CDT 02/01/2016 10:32 AM CDT Ora Solis MD LAB - CHEMISTRY OR DERABLES Performing Organization Address [facility] Co de Phone Number [address] [phone] * GLUCOSE - POINT OF CARE (AMB) U (02/01/2016) Only the most recent of2 resultswithin the time period is included. Lexis Aguilera DO LAB - POINT OF CARE ORDERABLES Performing Organization Address [facility] Co de Phone Number [facility] * MADDY DIRECT (01/11/2016 3:59 PM CDT) Pathologist [facility] Direct Maddy (ADALBERTO) NEG [facility] Blood specimen (specimen) 01/11/2016 3:59 PM CDT 01/11/2016 4:15 PM CDT Ora Solis MD LAB - BLOOD BANK O RDERABLES Performing Organization Address [facility] Co de Phone Number [facility] [address] [place] [address] * HIV-1 HIV-2 ANTIGEN/ANTIBODY (01/11/2016 3:58 PM CDT) Pathologist [facility] HIV Antigen/Antibod y 1 & 2 Non-reacti ve Non-react mark [facility] Comment: Neither HIV-1 p24 Antigen nor HIV-1/HIV-2 Antibodies are detected. ? Blood specimen (specimen) BLOOD SPECIMEN / Unknown 01/11/2016 3:58 PM CDT 01/11/2016 4:19 PM CDT Ora Solis MD LAB - HEMATOLOGY O RDERABLES Performing Organization Address [facility]/ZIP Co de Phone Number [address] [phone] * FISH CLL PANEL (01/11/2016 3:58 PM CDT) CLL Profile FISH See scanned report. [facility] NON INTERF Blood specimen (specimen) 01/11/2016 3:58 PM CDT 01/11/2016 4:16 PM CDT Narrative [facility] NON INTERF - 01/13/2016 2:51 PM CDT Green/Na heparin; peripheral blood or bone marrow Ora Solis MD LAB - PATHOLOGY/CY TOLOGY ORDERABLES Performing Organization Address [facility] Co de Phone Number [facility] NON INTERF * URIC ACID BLOOD (01/11/2016 3:58 PM CDT) Uric Acid 4.8 2.6 - 7.2 mg/dL [facility] Blood specimen (specimen) BLOOD SPECIMEN / Unknown 01/11/2016 3:58 PM CDT 01/11/2016 4:19 PM CDT Ora Solis MD LAB - CHEMISTRY OR DERABLES Performing Organization Address [facility] Co de Phone Number [address] [phone] * RETIC COUNT (01/11/2016 3:58 PM CDT) Reticulocyte % 1.4 0.4 - 2.5 % [facility] Reticulocyte Absolute 0.06 0.02 - 0.13 10? 6 /uL [facility] Blood specimen (specimen) BLOOD SPECIMEN / Unknown 01/11/2016 3:58 PM CDT 01/11/2016 4:19 PM CDT Ora Solis MD LAB - HEMATOLOGY O RDERABLES Performing Organization Address City/[facility]/ZIP Co de Phone Number [address] [phone] * HEPATITIS B CORE ANTIBODY (01/11/2016 3:58 PM CDT) HBc Antibody Total Non-reacti ve Non-reacti ve [facility] Blood specimen (specimen) BLOOD SPECIMEN / Unknown 01/11/2016 3:58 PM CDT 01/11/2016 4:19 PM CDT Ora Solis MD LAB - CHEMISTRY OR DERABLES Performing Organization Address [facility] Co de Phone Number [address] [phone] * HEPATITIS B SURFACE ANTIGEN W RFLX CONFIRMATION (01/11/2016 3:58 PM CDT) Hepatitis B Virus Surface Antigen Non-reacti ve Non-reacti ve [facility] Blood specimen (specimen) BLOOD SPECIMEN / Unknown 01/11/2016 3:58 PM CDT 01/11/2016 4:19 PM CDT Ora Solis MD LAB - CHEMISTRY OR DERABLES Performing Organization Address [facility] Co de Phone Number [address] [phone] * TSH (01/11/2016 3:58 PM CDT) TSH 1.452 0.350 - 4.940 uIU/mL [facility] Blood specimen (specimen) BLOOD SPECIMEN / Unknown 01/11/2016 3:58 PM CDT 01/11/2016 4:19 PM CDT Ora Solis MD LAB - CHEMISTRY OR DERABLES Performing Organization Address [facility]/ZIP Co de Phone Number [address] [phone] * HAPTOGLOBIN (01/11/2016 3:58 PM CDT) Haptoglobin 161 14 - 258 mg/dL [facility] Blood specimen (specimen) BLOOD SPECIMEN / Unknown 01/11/2016 3:58 PM CDT 01/11/2016 4:19 PM CDT Ora Solis MD LAB - CHEMISTRY OR DERABLES Performing Organization Address City/[facility]/ZIP Co de Phone Number [address] [phone] * HEPATITIS C ANTIBODY (01/11/2016 3:58 PM CDT) [facility] Hepatitis C Antibody Non-react mark Non-reac tive [facility] Comment: Hepatitis C Antibody screen indicates [...] - CHEMISTRY OR DERABLES Performing Organization Address [facility] Co de Phone Number [address] [phone] * CULTURE BLOOD (04/02/2014 4:30 PM INFORMATICIST) Only the most recent of2 resultswithin the time period is included. Pathologist [facility] Culture Blood No Growth at 5 days [facility] Blood specimen (specimen) BLOOD SPECIMEN / Unknown 04/02/2014 4:30 PM INFORMATICIST 04/02/2014 9:30 PM INFORMATICIST Narrative [facility] - 04/07/2014 9:45 PM INFORMATICIST DarwinSpecimen#[id number] Darwin Loc/Rm/Bed: ED// Xin Provider LAB - MICROBIOLOG Y ORDERABLES Performing Organization Address City/[facility]/ZIP Co de Phone Number [address] [phone] * CARDIAC RHYTHM STRIP ORDER (04/22/2010 8:03 PM INFORMATICIST) Narrative Procedure Note Document, Scanned - 04/22/2010 11:47 AM INFORMATICIST Scanned Document CARDIAC SERVICES ORD ERABLES * CT ANGIO CHEST W WO CONTRAST (04/18/2010 12:09 PM INFORMATICIST) Anatomical Region Laterality Modality Chest Computed Tomogra phy 04/18/2010 12:2 2 PM INFORMATICIST Impressions 04/18/2010 12:22 PM INFORMATICIST No pulmonary embolus. Narrative 04/18/2010 12:[address] Chest with contrast Date: 04/18/2010 History: [...] CT ORDERABLES * D-DIMER (04/18/2010 11:14 AM INFORMATICIST) D-Dimer 1.07 0.43 - 2.8 mg/L [facility] Comment D-Dimer [facility] Comment: ? Elevated results above the normal range may indicate ? DIC in the appropriate clinical setting. ??Serial ? evaluations may yield information regarding the ? clinical course. ? If result is greater than 1.0 mg/L, DVT or PE is possible. BLOOD SPECIMEN / Unknown 04/18/2010 11:14 AM INFORMATICIST 04/18/2010 11:20 AM INFORMATICIST Enoc Juarez MD LAB - COAGULATION OR DERABLES Performing Organization Address [facility] Co de Phone Number [facility] [address] [place] [address] * XR CHEST PA AND LATERAL (04/18/2010 9:38 AM INFORMATICIST) Anatomical Region Laterality Modality Chest Radiographic Aaliyah ging 04/18/2010 9:47 AM INFORMATICIST Impressions 04/18/2010 9:47 AM INFORMATICIST 1. No acute disease process. Narrative 04/18/2010 9:47 AM INFORMATICIST HISTORY: Chest pain. Two views chest, 04/18/2010. [...] - POINT OF CARE (04/18/2010 9:34 AM INFORMATICIST) Pathologist [facility] BNP POCT 7.2 <=100 pg/ml [facility] Performed by [facility] Performed In ER [facility] BLOOD SPECIMEN / Unknown 04/18/2010 9:34 AM INFORMATICIST 04/18/2010 9:36 AM INFORMATICIST Er LAB - POINT OF CARE ORDERABLES Performing Organization Address [facility] Co de Phone Number [facility] [address] [place] [address] * MYOGLOBIN BLOOD - POINT OF CARE (04/18/2010 9:34 AM INFORMATICIST) Myoglobin POCT 32.1 <=170 ng/ml [facility] Performed by EW [facility] Performed In ER [facility] BLOOD SPECIMEN / Unknown 04/18/2010 9:34 AM INFORMATICIST 04/18/2010 9:36 AM INFORMATICIST Er LAB - POINT OF CARE ORDERABLES Performing Organization Address City/[facility] Co de Phone Number [facility] [address] [place] [address] * TROPONIN - POINT OF CARE (04/18/2010 9:34 AM INFORMATICIST) Troponin I POCT < 0.05 SEE BELOW ng/ml [facility] Comment: <0.05 ? Normal 0.05-0.39 Indeterminate >0.4 ? Abnormal Performed by EW [facility] Performed In ER [facility] BLOOD SPECIMEN / Unknown 04/18/2010 9:34 AM INFORMATICIST 04/18/2010 9:36 AM INFORMATICIST Er LAB - POINT OF CARE ORDERABLES Performing Organization Address [facility] Co de Phone Number [facility] [address] [place] [address] * CKMB - POINT OF CARE (04/18/2010 9:34 AM INFORMATICIST) CK-MB POCT < 1.0 <=8.0 ng/ml [facility] Performed by EW [facility] Performed In ER [facility] BLOOD SPECIMEN / Unknown 04/18/2010 9:34 AM INFORMATICIST 04/18/2010 9:36 AM INFORMATICIST Er LAB - POINT OF CARE ORDERABLES Performing Organization Address [facility] Co de Phone Number [facility] [address] [place] [address] * HCG URINE QUALITATIVE - POINT OF CARE (04/18/2010 9:28 AM INFORMATICIST) HCG Qual Urine negative Negative [facility] POCT TESTING QC Verified yes Yes [facility] POC T TESTING Urine specimen (specimen) URINE / Unknown 04/18/2010 9:28 AM INFORMATICIST Enoc Juarez MD LAB - POINT OF CARE ORDERABLES Performing Organization Address City/[facility] Co de Phone Number [facility] [address] * EKG 12-LEAD (04/18/2010) Enoc Juarez MD ECG ORDERABLES * CT HEAD NON CONTRAST (05/19/2009 2:19 AM INFORMATICIST) Anatomical Region Laterality Modality Head Computed Tomogra phy 05/19/2009 8:04 AM INFORMATICIST Narrative 05/19/2009 4:[address] Brain Scan Noncontrast Indication: Head pain, hit in head by a metal door. Technique: Emergency CT brain scan was carried out in the standard reference planes. Initial interpretation was provided by [facility] and a preliminary report was sent. [...] reference planes. Initial interpretation was provided by [facility] and a preliminary report was sent. [...] Kaela Barros DO CT ORDERABLES Care Teams Ductfixing Plumber Relationship Specialty Start Date End Date Kylah Harry MD [address] [place] [phone] PCP - General 06/06/18
--- OUTSIDE RECORDS SUMMARY | 2024-06-09 19:18 | XMS_ITS | Encounter Summary ---
Author Organization [facility] Address [address] [place] [address] Care Team Providers Care Tire Tester Name Role Phone Finesse Noonan MD Primary Care Provider [phone] Kylah Harry MD Primary Care Provider [phone] Encounter Details Date Type Department Care Team (Late st Contact Info) Description 02/01/2016 Lab Requisition [facility] Alessandra - Lab Cytogenetics [address] [place] [address] Daniel Solis MD [address] [place] [address] [address] [place] [address] Chronic lymphocytic leukemia of B-cell type not [...] for Study CLL 6 6:51 AM CDT [facility] Results Cytogenetics Fluorescence In-Situ Hybridization (FISH): ??Analysis of 100 interphase bone marrow cells hybridized to triple labeled [id number]/13q34/CEP12 specific fluorescent labeled probes* directed onto 13q14/3q34/12cen showed the following results: nuc summer(XVW93w2,R34Q126z 0,OVUL7s0)[15100],( LWZ47z3,O66F169r9,LA MP1x2)[22] 6 6:51 AM CDT [facility] Interpretation To rule [...] correlation is suggested 6 6:51 AM T [facility] Disclaimer *This test was developed, and its performance characteristics determined by [facility] Cytogenetics Laboratory as required by [...] with cytogenetic findings. 6 6:51 AM CDT [facility] Historical Cytogenomic Report [id number] on 01/13/2016 Results ?? Fluorescence In-Situ Hybridization (FISH): ??Analysis of 100 to 200 interphase peripheral blood cells hybridized to each of dual labeled MYB/CEP6, triple labeled G07P797/13q34/CEP12, dual labeled p53/JOYCE, dual labeled dual fusion IGH/CCND1 specific fluorescent labeled probes* directed onto 6q23/CEP6, 13q14/3q34/12cen,17p 13/11q22 and 14q32/11q13 showed the following results nuc summer(CEP6,MYB)x2[200] ,(CCND1,IGH)x2[184/2 00],(JOYCE,p53)x2[200] ,(CSL02l2,F74P882a4, UZTE1r0)[21/100],(CE P12x2,D44H666p1,LAMP 1x2)[55/100] Abnormal ?? . ?? Interpretation ?? FISH of CLL panel was positive for B72T141 showing one signal of V31A650 in 55% and zero signals of I48H081 in 21% of cells. All other probes [...] developed, and its performance characteristics determined by [facility] Molecular Cytogenetics Laboratory as required by [...] findings. ?? . 6 6:51 AM CDT [facility] Client Information [facility] ??- ??[id number] [facility] LAB NUMBERS: [id number] ; [id number] 6 6:51 AM CDT [facility] Other BONE MARROW SPECIMEN / Unknown 02/01/2016 1:45 PM CDT 02/01/2016 3:08 PM CDT Daniel Solis MD LAB - PATHOLOGY/CY TOLOGY ORDERABLES [facility] [address] [place] [address] documented in this encounter Visit Diagnoses Diagnosis Chronic lymphocytic leukemia of B-cell type not having achieved remission (HCC) Chronic lymphoid leukemia, without mention of having achieved remission documented in this encounter Care Teams Tire Tester Relationship Specialty Start Date End Date Finesse Noonan MD [address] [place] [phone] PCP - General 05/19/09 06/05/18 Kylah Harry MD [address] [place] [address] [place] [phone] PCP - General 06/06/18 documented as of this encounter
[2024-06-09 20:14] LABS: Add Urine Microscopic? YES; Appearance Urine Clear (Clear); Bacteria Urine Rare /hpf; Bilirubin Urine Negative (Negative); Blood Urine Trace (Negative); Color Urine Yellow (Yellow); Glucose Urine UA Negative (Negative); Ketones Urine Negative (Negative); Leukocyte Esterase Ur Trace LEU/UL (Negative); Nitrate Urine Negative (Negative); Non Pathogenic Casts 0-2; Protein Urine Negative (Negative); Specific Grav Ur 1.007 (1.001-1.035); Squamous Epithelial Cell Urine Few /hpf (Few); Urobilinogen Urine 0.2 mg/dL (<2.0); WBC Urine 0-5 /hpf (0-3)
== END 2024-06-09 20:42 | disposition home or self-care (01) ==
PROVIDERS: Registered Nurse; Emergency Provider Student in an Organized Health Care Education/Training Program
DX: S39.012A Strain of muscle, fascia and tendon of lower back, initial encounter (principal); R10.10 Upper abdominal pain, unspecified; Z85.6 Personal history of leukemia; F17.200 Nicotine dependence, unspecified, uncomplicated
CPT/HCPCS: 36415; 71046; 74177; 80053; 81001; 81025; 83690; 84484; 85025; 85610; 85730; 96361; 96374; 99284; J1885; J7030; Q9967